=== PATIENT | female | born 1975 | race Caucasian/White ===

== ENCOUNTER → 2020-01-10 | Outpatient (CLI) | payer MEDICARE ==
[2020-01-10 09:58] LABS: HCT 43.4 % (34.0-46.0); HGB 14.1 gm/dL (11.4-16.0); MCH 32.1 pg (25.0-35.0); MCHC 32.5 g/dL (31.0-37.0); MCV 98.9 fL (80.0-100.0); Mean Platelet Volume 7.3; Platelet Count 311 k/uL (150-450); RBC 4.39 m/uL (3.80-5.40); RDW 12.9 % (11.5-15.5); WBC 6.2 k/uL (3.8-10.6)
--- NOTE | 2020-01-10 10:51 | XR ---
EXAMINATION TYPE: XR sacrum coccyx DATE OF EXAM: 01/10/2020 COMPARISON: NONE HISTORY: Pain Three views are submitted. Sacrum is intact. SI joints are symmetric. Coccyx appears to be intact. Visualized pelvic structures intact. Mild hypertrophic changes and arthropathy along the inferior margin of the left SI joint. Sacral foramina are patent. Numerous calcifications in the pelvis noted. Chronic appearing deformity of the symphysis pubis. Facet arthropathy L5-S1 IMPRESSION: 1. No acute fracture. If symptoms persist consider CT scan.
--- NOTE | 2020-01-10 11:06 | XR ---
EXAM TYPE: LUMBAR SPINE X RAY SERIES COMPARISON: NONE HISTORY: Pain TECHNIQUE: 4 views are submitted. FINDINGS: Alignment is anatomic. The pedicles are intact. The transverse processes are intact. There is no s pondylolisthesis. No compression deformities. Hypertrophic change at L3-4 and L4-5 with facet arthro lashell at L4-5 and L5-S1. Mild degenerative disc disease at these levels. Surgical clips in the right upper quadrant. There is a calcification adjacent to the L4-L5 disc space level. IMPRESSION: 1. Mild multilevel degenerative disc disease and facet arthropathy. Correlate with MRI as clinically warranted. 2. Left abdominal calcification could be in the course of the left ureter correlate clinically.
[2020-01-10 15:26] LABS: Chol/HDL Ratio 3.89; LDL Cholesterol,Calculated 128.8 mg/dL (0.0-131.0); VLDL Calculation 27.2 mg/dL (5.00-40.00)
[2020-01-10 15:27] LABS: African American GFR (CKD) 103.2 (60.0-200.0); Albumin 4.1 g/dL (3.80-4.90); Albumin/Globulin Ratio 2.05 (1.60-3.17); Anion Gap 4.1 mmol/L (4.00-12.00); BUN/Creat Ratio 17.5 Ratio (12.00-20.00); Calcium 8.7 mg/dL (8.7-10.3); Carbon Dioxide 23.9 mmol/L (21.6-31.8); Potassium 4.4 mmol/L (3.5-5.5); Total Bilirubin 0.3 mg/dL (0.3-1.2); Total Protein 6.1 g/dL (6.2-8.2)
[2020-01-10 15:34] LABS: T4, Free (Free Thyroxine) 1.1 ng/dL (0.80-1.80)
[2020-01-10 17:02] LABS: Hemoglobin A1C 5.5 % (4.0-6.0)
[2020-01-13 14:44] LABS: APTT 35 Sec(s) (<43); DRVVT 1:1 Mix 40 Sec(s) (<44); Dilute Russell Viper Venom 47 Sec(s) (<44)
== END | disposition home or self-care (01) ==
LOC: LABWHC1 09:27
PROVIDERS: ATTEND Family Medicine
DX: Z00.00 Encounter for general adult medical examination without abnormal findings (principal); I10 Essential (primary) hypertension; B89 Unspecified parasitic disease; M51.36 Other intervertebral disc degeneration, lumbar region
CPT/HCPCS: 36415; 72100; 72220; 80053; 80061; 83036; 84439; 84443; 85027; 85613; 85730; 86038

== ENCOUNTER → 2020-02-26 | Outpatient (CLI) | payer MEDICARE ==
--- NOTE | 2020-02-26 15:08 | CT ---
EXAMINATION TYPE: CT cervical spine wo con DATE OF EXAM: 02/26/2020 COMPARISON: MR cervical spine 07/02/2014 HISTORY: Neck pain, numbness and tingling down arms. History of chiari decompression. CT DLP: 486.8 mGycm Automated exposure control for dose reduction was used. TECHNIQUE: CT scan of the cervical spine is obtained without contrast, axial images are obtained, sagittal and c oronal reformatted images are also reviewed. FINDINGS: There is been interval posterior occipital craniotomy, laminectomies at C1. Reversal the cervical rodney dosis is again noted. Cervical vertebral bodies show preserved height and alignment. There is a spina l curvature. Some loss of disc height present C3-4, C6-7 with spondylosis. No significant foraminal e ncroachment or evident spinal stenosis. Some mild foraminal encroachment present on the right at C3-4 , there is some facet arthropathy change. Cervical spine is visualized in its entirety from C1 throug h upper thoracic levels, without evidence of acute fracture or dislocation. Prevertebral soft tissue appears within normal limits. The C1-C2 articulation is within normal limits on the coronal images. IMPRESSION: Postop changes. Mild degenerative disc disease as described. Additional findings above.
== END | disposition home or self-care (01) ==
LOC: RADCTMAIN 14:22
PROVIDERS: ATTEND Family Medicine
DX: M50.30 Other cervical disc degeneration, unspecified cervical region (principal); M47.812 Spondylosis without myelopathy or radiculopathy, cervical region; Z98.890 Other specified postprocedural states
CPT/HCPCS: 72125

== ENCOUNTER → 2020-03-30 | Outpatient (CLI) | payer MEDICARE ==
[2020-03-30 13:05] VITALS: BP 96/68; PULSE 78; RESP 16; TEMP 98.3
--- NOTE | 2020-03-30 13:35 | P.CONS ---
History of Present Illness - Reason for Consult Consult date: 03/30/20 - Chief Complaint Lower back and right leg pain - History of Present Illness This is a 44-year-old lady with history of lower back pain which started when she was in her 20s as she states however lately it has been getting worse with radiation to the right lower extremity down to the right foot with numbness and tingling in the right leg. The patient also has neck pain with the previous decompression of a Chiari malformation on the cervical spine. She is here today however mostly for her lower back pain due to the intensity of this pain. The patient has been using tramadol and marijuana to help with this pain. This pain gets worse with activities and improves by laying down in bed. She denies any bowel or bladder dysfunction or any weakness in the lower extremities. Review of Systems Constitutional: Denies chills, Denies fever Ears, nose, mouth and throat: Denies headache, Denies sore throat Cardiovascular: Denies chest pain, Denies shortness of breath Respiratory: Denies cough Musculoskeletal: Reports as per HPI Neurological: Reports as per HPI Past Medical History Past Medical History: Neurologic Disorder, Thyroid Disorder Additional Past Medical History / Comment(s): headaches/leaky mitral valve and tacchycardia. CHAIRI MALFORMATION - neurological disorder (diagnosed in 2016). Migraines History of Any Multi-Drug Resistant Organisms: None Reported Past Surgical History: Breast Surgery, Section, Hysterectomy, Orthopedic Surgery Additional Past Surgical History / Comment(s): lt knee. lumpectomy. cyst removal. DECOMPRESSION SURGERY SECONDARY TO CHAIRI MALFORMATION - 2016 Past Psychological History: Depression Smoking Status: Former smoker Past Alcohol Use History: Occasional Past Drug Use History: None Reported, Marijuana Medications and Allergies Home Medications Medication Instructions Recorded Confirmed Type Cyclobenzaprine [Flexeril] 10 mg PO DAILY 06/07/14 03/30/20 History DULoxetine HCL [Cymbalta] 120 mg PO HS 03/30/20 03/30/20 History Levothyroxine Sodium 25 mcg PO DAILY 03/30/20 03/30/20 History Metoprolol Tartrate 25 mg PO DAILY 03/30/20 03/30/20 History traMADol HCL 50 mg PO BID 03/30/20 03/30/20 History traZODone HCL 150 mg PO HS 03/30/20 03/30/20 History Allergies Allergy/AdvReac Type Severity Reaction Status Date / Time Cephalosporins AdvReac Unknown Verified 03/30/20 12:33 topiramate [From Topamax] AdvReac Unknown Verified 03/30/20 12:33 Physical Exam Vitals: Vital Signs Temp Pulse Resp BP Pulse Ox 03/30/20 12:38 98.3 F 78 16 96/68 95 Intake and Output 03/29/20 03/30/20 03/30/20 22:59 06:59 14:59 Other: Weight 94.801 kg - Constitutional General appearance: obese - EENT Eyes: PERRLA - Integumentary Integumentary: no calor, no cellulitis, no cyanotic, no decreased turgor, no flushed, no jaundiced, no normal, no normal turgor, no pale, no rash, no ulcer - Neurologic Neuro exam of the lower extremities showed normal and symmetrical deep tendon reflexes and normal and symmetrical muscle strength. Straight leg raising test negative bilaterally. Positive tenderness around the right sacroiliac joint and on the lumbar paravertebral musculature on the right side Positive Bulmaro's test on the right side No pain with internal and external rotation of the right hip joint. Neurologic: CNII-XII intact Results Comments: An x-ray on the lumbar spine showed mild degenerative changes and facet arthropa thy. There is no MRI available for the lumbar spine. Assessment and Plan Plan: This is a 44-year-old lady with the following diagnoses: Right lumbar radiculopathy Lumbar DDD Right sacroiliitis Cervical spondylosis without myelopathy Status post decompression of the cervical spine for Arnold-Chiari malformation Obesity Occasional marijuana use The patient may benefit from getting lumbar epidural steroid injection under fluoroscopic guidance at the L4 5 level in the right paramedian approach. Her lower back pain continues to be an initial might need to do sacroiliac joint injection on the right side. The procedure was explained to the patient and she was agreeable to it. I thank you for the referral.
== END | disposition home or self-care (01) ==
LOC: PNWHC3 12:27
PROVIDERS: ATTEND Anesthesiology
DX: M51.16 Intervertebral disc disorders with radiculopathy, lumbar region (principal); M46.1 Sacroiliitis, not elsewhere classified; E66.9 Obesity, unspecified; G43.909 Migraine, unspecified, not intractable, without status migrainosus; M47.812 Spondylosis without myelopathy or radiculopathy, cervical region; E07.9 Disorder of thyroid, unspecified; F12.90 Cannabis use, unspecified, uncomplicated; Z88.1 Allergy status to other antibiotic agents; Z88.8 Allergy status to other drugs, medicaments and biological substances; Z79.891 Long term (current) use of opiate analgesic; Z79.899 Other long term (current) drug therapy; Z79.890 Hormone replacement therapy; Z87.891 Personal history of nicotine dependence; Z98.890 Other specified postprocedural states
CPT/HCPCS: 99211

== ENCOUNTER 2020-04-14 12:41 | Day surgery (SDC) | payer MEDICARE ==
[2020-04-10 11:48] VITALS: BMI 36.8
[~2020-04-14 12:41] MED LIST: LACTATED RINGERS 1,000 ML IV SCH
[2020-04-14 13:01] VITALS: RESP 16; TEMP 97.4
[2020-04-14] MEDS ORDERED: LIDOCAINE 1% (10MG/ML) FOR IV START INTRADERMA ONE (13:04)
[2020-04-14] MEDS ORDERED: methylPREDNISolone ACETATE 40 MG/ML 1 ML VIAL ONE (13:23)
[2020-04-14] MEDS ORDERED: fentaNYL (PF) 50 MCG/ML 2 ML AMP ONE (13:23)
[2020-04-14] MEDS ORDERED: MIDAZOLAM 2 MG/2 ML VIAL ONE (13:23)
[2020-04-14] MEDS ORDERED: IOPAMIDOL M200 10 ML VIAL ONE (13:23)
--- NOTE | 2020-04-14 13:34 | P.PCN ---
Date of Procedure: 04/14/20 Procedure(s) Performed: PREOPERATIVE DIAGNOSIS: 1- Lumbar Degenerative Disc Diseases 2-Lumbar radiculopathy POSTOPERATIVE DIAGNOSIS: 1-Lumber Degenerative Disc Diseases 2-Lumbar radiculopathy PROCEDURE 1. Lumbar epidural steroid injection under fluoroscopic guidance at the L4-5 level. (Right paramedian approach) (Fluoroscopy imaging was available in radiology department) 2. Lumbar epidurogram. ANESTHESIA: Local with 1% lidocaine 3 ml and , moderate sedation with intr avenous Versed 2 mg ,and fentanyle 50 Mcg EBL: Minimal PROCEDURE INDICATION: The patient with low back pain and radiculitis symptoms unresponsive to conservative treatment. Fluoroscopy was used to optimize visualization of the needle placement and to maximize safety. PROCEDURE DESCRIPTION / TECHNIQUE: The patient was seen and identified in the preoperative area. Risks, benefits, complications including but not limited to infections ,bleeding ,allergic reaction to the medications ,nerve damage and not complete pain releife , and alternatives were discussed with the patient. The patient agreed to proceed with the procedure and signed the consent. IV was started, and vital signs were stable. Patient was taken to the OR and time out was completed. The patient was placed in the prone position on procedure table and a pillow was placed under the abdomen to reduce lumbar lordosis. The lumbosacral area was prepped and draped in the usual sterile fashion.ere closely monitored during the procedure. Conscious sedation was used during the procedure to decrease patients anxiety. Vital signs was monitered during the entire procedure. Using anterior-posterior fluoroscopy, the L4-5 interlaminar space was identified and the skin over this site was marked and then infiltrated with 1% lidocaine subcutaneously. Subsequently, a 20-gauge Tuohy epidural needle was inserted and advanced toward the epidural space using the ``Loss of resistance technique and guided by AP and lateral fluoroscopy. The correct needle position in the epidural space was verified with the injection of 2 mL of the water soluble contrast dye Isovue 200 contrast and observing an excellent epidurogram with the epidural spread of the dye, after negative aspiration for blood and CSF and in the absence of paresthesias. Again after negative aspiration, a 6 ml mixture containing 80 mg of Depo-medrol , and 2 ml of preservative free Normal Saline, and 2 ml of preservative free lidocaine 1% solution was injected and a washout of epidurogram was seen. Needle was withdrawn intact, skin was cleansed, and bandages were applied. COMPLICATIONS: None DISPOSITION / PLANS: The patient was placed in a supine position and transferred to the recovery area in a stable condition for observation. There was no evidence of lower extremity motor or sensory deficit after the procedure. Patient was discharged from the recovery room after meeting discharge criteria. Home discharge instructions were given to the patient by the staff. The patient was reexamined prior to discharge. The patient will schedule a follow up in the clinic in 2-4 weeks.
[2020-04-14] MEDS ORDERED: IV FLUID CONTINUATION 650 ML IV ONE (13:42)
[2020-04-14 13:57] VITALS: BP 94/67; PULSE 65
--- NOTE | 2020-04-14 14:00 | FL ---
Fluoroscopy HISTORY: Pain 2 seconds fluoroscopy time supplied to the referring clinician. 1 intraoperative C-arm images docume nt the procedure. See dictated report from anesthesia.
== END 2020-04-14 14:20 | disposition home or self-care (01) ==
LOC: ORPAIN 12:41
PROVIDERS: ATTEND Specialist
DX: M51.16 Intervertebral disc disorders with radiculopathy, lumbar region (principal); Z90.710 Acquired absence of both cervix and uterus; Z88.1 Allergy status to other antibiotic agents; Z88.8 Allergy status to other drugs, medicaments and biological substances
CPT/HCPCS: 62323; J2250; J1030; J3010; Q9966

== ENCOUNTER 2020-05-26 08:18 | Day surgery (SDC) | payer MEDICARE ==
[2020-05-25 11:08] VITALS: BMI 38.5
[2020-05-26 08:39] VITALS: RESP 16; TEMP 96.9
[2020-05-26] MEDS ORDERED: SODIUM CHLORIDE 0.9% (PF) 10 ML VIAL ONE (08:45)
[2020-05-26] MEDS ORDERED: IOPAMIDOL M200 10 ML VIAL ONE (08:45)
[2020-05-26] MEDS ORDERED: LIDOCAINE 1% INJ 10MG/ML (20 ML MDV) ONE (08:45)
[2020-05-26] MEDS ORDERED: methylPREDNISolone ACETATE 40 MG/ML 1 ML VIAL ONE (08:45)
--- NOTE | 2020-05-26 08:57 | P.PCN ---
Date of Procedure: 05/26/20 Procedure(s) Performed: PREOPERATIVE DIAGNOSIS: 1- Lumbar Degenerative Disc Diseases 2-Lumbar radiculopathy POSTOPERATIVE DIAGNOSIS: 1-Lumber Degenerative Disc Diseases 2-Lumbar radiculopathy PROCEDURE 1. Lumbar epidural steroid injection under fluoroscopic guidance at the L4-5 level. (Fluoroscopy imaging was available in radiology department) 2. Lumbar epidurogram. ANESTHESIA: Local with 1% lidocaine 3 ml only EBL: Minimal PROCEDURE INDICATION: The patient with low back pain and radiculitis symptoms unresponsive to conservative treatment. Fluoroscopy was used to optimize visualization of the needle placement and to maximize safety. PROCEDURE DESCRIPTION / TECHNIQUE: The patient was seen and identified in the preoperative area. Risks, benefits, complications including but not limited to infections ,bleeding ,allergic reaction to the medications ,nerve damage and not complete pain releife , and alternatives were discussed with the patient. The patient agreed to proceed with the procedure and signed the consent, and vital signs were stable. Patient was taken to the OR and time out was completed. The patient was placed in the prone position on procedure table and a pillow was placed under the abdomen to reduce lumbar lordosis. The lumbosacral area was prepped and draped in the usual sterile fashion.ere closely monitored during the procedure. Vital signs was monitered during the entire procedure. Using anterior-posterior fluoroscopy, the L4-5 interlaminar space was identified and the skin over this site was marked and then infiltrated with 1% lidocaine subcutaneously. Subsequently, a 20-gauge Tuohy epidural needle was inserted and advanced toward the epidural space using the ``Loss of resistance technique and guided by AP and lateral fluoroscopy. The correct needle position in the epidural space was verified with the injection of 2 mL of the water soluble contrast dye Isovue 200 contrast and observing an excellent epidurogram with the epidural spread of the dye, after negative aspiration for blood and CSF and in the absence of paresthesias. Again after negative aspiration, a 6 ml mixture containing 80 mg of Depo-medrol , and 2 ml of preservative free Normal Saline, and 2 ml of preservative free lidocaine 1% solution was injected and a washout of epidurogram was seen. Needle was withdrawn intact, skin was cleansed, and bandages were applied. COMPLICATIONS: None DISPOSITION / PLANS: The patient was placed in a supine position and transferred to the recovery area in a stable condition for observation. There was no evidence of lower extremity motor or sensory deficit after the procedure. Patient was discharged from the recovery room after meeting discharge criteria. Home discharge instructions were given to the patient by the staff. The patient was reexamined prior to discharge. The patient will schedule a follow up in the clinic in 2-4 weeks.
--- NOTE | 2020-05-26 09:11 | FL ---
EXAMINATION TYPE: FL guided pain mgmt statistic DATE OF EXAM: 05/26/2020 HISTORY: Fluoroscopy time 2 seconds of fluoroscopy provided. IMPRESSION: 1. Fluoroscopy time.
[2020-05-26 09:20] VITALS: BP 99/66; PULSE 76
== END 2020-05-26 09:31 | disposition home or self-care (01) ==
LOC: ORPAIN 08:18
PROVIDERS: ATTEND Specialist
DX: M51.16 Intervertebral disc disorders with radiculopathy, lumbar region (principal); Z88.1 Allergy status to other antibiotic agents; Z88.8 Allergy status to other drugs, medicaments and biological substances
CPT/HCPCS: 62323; J1030; J2001; Q9966

== ENCOUNTER → 2020-06-15 | Outpatient (CLI) | payer MEDICARE ==
[2020-06-15 09:17] VITALS: BP 124/89; PULSE 98; RESP 16; TEMP 98.5
--- NOTE | 2020-06-15 09:37 | P.PAINPG ---
Subjective Progress Note Date: 06/15/20 This is a 44-year-old lady with history of lower back pain which started when she was in her 20s as she states however lately it has been getting worse with radiation to the right lower extremity down to the right foot with numbness and tingling in the right leg. The patient also has neck pain with the previous decompression of a Chiari malformation on the cervical spine. We saw her as an inpatient consult where we felt she may benefit from L4-5 ILESI. She has had 2 of that procedure in the last 2 months which gave her 50% pain relief. Here for follow up today. As stated above she notes that her back pain is doing well given the recent epidurals. She does want to discuss neck pain that she's been having for about 5 years. She does have a history of currently malformation with craniotomy in the past. Pain is located in the occipital area with radiation into the shoulders and neck described as dull and aching. Any physical activity makes the pain worse and only taking her Lacassine or Flexeril make the pain better. She does note bilateral hand numbness as well, notes she had an EMG in the past but did not mention carpal tunnel syndrome at all. Occasionally endorses weakness in the arms. In terms of management she's tried multiple medications in the past. He is currently taking Lacassine from her PCP which helps as needed. Try gabapentin but it did not help and give her significant side effects such as mental clouding and weight gain. Has tried NSAIDs and lidocaine patches with no help. Hasn't physical therapy with no help. Has had hoccpital nerve blocks and cervical epidurals at some point in the past with no help. She denies any bowel or bladder dysfunction or any weakness in the lower extremities. Review of Systems Constitutional: Denies chills, Denies fever Ears, nose, mouth and throat: Denies headache, Denies sore throat Cardiovascular: Denies chest pain, Denies shortness of breath Respiratory: Denies cough Musculoskeletal: Reports as per HPI Neurological: Reports as per HPI Past Medical History Past Medical History: Neurologic Disorder, Thyroid Disorder Additional Past Medical History / Comment(s): headaches/leaky mitral valve and tacchycardia. CHAIRI MALFORMATION - neurological disorder (diagnosed in 2016). Migraines History of Any Multi-Drug Resistant Organisms: None Reported Past Surgical History: Breast Surgery, Section, Hysterectomy, Orthopedic Surgery Additional Past Surgical History / Comment(s): lt knee. lumpectomy. cyst removal. DECOMPRESSION SURGERY SECONDARY TO CHAIRI MALFORMATION - 2016 Past Psychological History: Depression Smoking Status: Former smoker Past Alcohol Use History: Occasional Past Drug Use History: None Reported, Marijuana Physical Exam - Constitutional General appearance: obese - EENT Eyes: PERRLA - Integumentary Integumentary: no calor, no cellulitis, no cyanotic, no decreased turgor, no flushed, no jaundiced, no normal, no normal turgor, no pale, no rash, no ulcer - Neurologic Neuro exam of the lower extremities showed normal and symmetrical deep tendon reflexes and normal and symmetrical muscle strength. Cervical Spine: Reversal of normal lordosis. Trigger points present over the right rhomboid area. Range of motion intact bilaterally. Strength intact bilaterally. Reflexes intact bilaterally. Some limited range of motion especially extension to the right side due to pain Neurologic: CNII-XII intact Results Comments: An x-ray on the lumbar spine showed mild degenerative changes and facet arthropathy. CT Cervical Spine 02/2020 Interval posterior occipital craniotomy, laminectomies at C1. Reversal of c ervical lordosis is noted. Some loss of disc height at C3-C4 and C6-C7 spondylosis. No significant foraminal encroachment or spinal stenosis. Some mild foraminal encroachment present on the right at C3-C4, some facet arthropathy changes. Assessment and Plan Plan: This is a 44-year-old lady with the following diagnoses: Right lumbar radiculopathy Lumbar DDD Right sacroiliitis Cervical spondylosis without myelopathy Status post decompression of the cervical spine for Arnold-Chiari malformation Obesity Occasional marijuana use We will schedule this patient for right-sided C2-C3, C3 4 C4, C4-C5 medial branch block with possible continuation RFA patient has good benefit with the medial branch blocks. I encouraged her to establish care with a neurologist in area given her complicated neurologic history. As I encouraged her to seek help from headache specialist is possible that she is having migraine headaches as well as cervical facet mediated pain concurrently. PQRS Measure Charge Sheet PQRS Narrative: Smoking Status Never smoker Pain Intensity [Lower Back] 3 Pain Intensity [Neck] 5 Scale Used Numeric (1 - 10) Hx Alcohol Use (MH) Yes: SOCIAL Home Medications: Ambulatory Orders Cyclobenzaprine [Flexeril] 10 mg PO DAILY 06/07/14 DULoxetine HCL [Cymbalta] 120 mg PO HS 03/30/20 Levothyroxine Sodium 25 mcg PO DAILY 03/30/20 Metoprolol Tartrate 25 mg PO DAILY 03/30/20 traMADol HCL 50 mg PO BID 03/30/20 traZODone HCL 150 mg PO HS 03/30/20 HYDROcodone/APAP 5-325MG [Lacassine 5-325] 5 mg PO Q6HR PRN 04/14/20 Controlled Substance Measures - Controlled Substance Measures Is patient prescribed a controlled substance at discharge?: No
== END | disposition home or self-care (01) ==
LOC: PNWHC3 08:52
PROVIDERS: ATTEND Anesthesiology
DX: M46.1 Sacroiliitis, not elsewhere classified (principal); M47.812 Spondylosis without myelopathy or radiculopathy, cervical region; M51.16 Intervertebral disc disorders with radiculopathy, lumbar region; E66.9 Obesity, unspecified; F12.90 Cannabis use, unspecified, uncomplicated; Z98.890 Other specified postprocedural states; Z79.890 Hormone replacement therapy; Z79.899 Other long term (current) drug therapy; Z79.891 Long term (current) use of opiate analgesic
CPT/HCPCS: 99211

== ENCOUNTER 2020-07-03 12:02 | Day surgery (SDC) | payer MEDICARE ==
[2020-07-01 15:24] VITALS: BMI 38.5
[2020-07-03 12:27] VITALS: TEMP 97
[2020-07-03] MEDS ORDERED: LIDOCAINE 1% (10MG/ML) FOR IV START INTRADERMA ONE (12:28)
[2020-07-03] MEDS ORDERED: DEXAMETHASONE SOD PHOSPHATE 10 MG/ML 1 ML VIAL ONE (12:45)
[2020-07-03] MEDS ORDERED: ROPIVACAINE 5MG/ML 20ML VIAL ONE (12:45)
[2020-07-03] MEDS ORDERED: PROPOFOL 10 MG/ML 20 ML VIAL IV ONE (12:47)
[2020-07-03] MEDS ORDERED: MIDAZOLAM 2 MG/2 ML VIAL ONE (12:47)
[2020-07-03] MEDS ORDERED: fentaNYL (PF) 50 MCG/ML 2 ML AMP ONE (12:47)
--- NOTE | 2020-07-03 13:06 | P.PCN ---
Date of Procedure: 07/03/20 Surgeon: Drea Durbin Pathology: none sent Condition: stable Disposition: PACU Description of Procedure: roger of procedure: Cervical medial branch block for C2 ,C3 ,C4 and block of the third occipital nerve on the right side Surgeon:Drea Durbin MD Anesthesia: IV moderate conscious sedation by the anesthesia Department Diagnosis: Cervical spondylosis without myelopathy , cervicogenic headache Description of procedure: The patient was seen and identified in the preoperative area. Risks, benefits, complications, and alternatives were discussed with the patient, the patient agreed to proceed with the procedure and signed the consent. IV was started. Vital signs remained stable throughout the procedure. Patient was taken to the OR and time out was completed. The patient was placed in the supine position on the procedure table. . The cervical area was prepped with chloraprep and draped in the usual sterile fashion. Critical pause was taken. Vital signs were closely monitored during the procedure. Conscious sedation was used during the procedure to decrease patients anxiety. The lateral view of fluoroscopy was used to identify the C2 , C3 and C4 trapezoid shaped cervical articular pillars and the target points were the center of the articular pillars . I used 22-gauge 3-1/2 inch Quincke spinal needle to go through the skin after localizing it with lidocaine 1% and to contact the bone at the above-mentioned target point then the AP view of fluoroscopy was used to verify needle position at the waist of the C2 and C3 vertebral bodies laterally. For the 3rd occipital nerve the target point was at the center of the C2-C3 joint line bilaterally . after contacting bone at the target points mentioned above I injected 0.5 MLS of a solution made up of 3 ml of preservative-free ropivacaine 0.5% mixed with Dexamethasone 10 mg and half ml of the mixture was injected at each level after negative aspiration for blood and CSF. Napavine were then removed intact. t COMPLICATIONS: No acute complications. COMMENTS: A copy of needle placement was saved to the C-arm at the radiology department DISPOSITION / PLANS: The patient was placed in a supine position and transferred to the recovery area in a stable condition for observation and was discharged from the recovery room after meeting discharge criteria. Home discharge instructions given to the patient by the staff. The patient was reexamined prior to discharge. The patient will be scheduled for a repeat of this injection in 2- 4 weeks.
--- NOTE | 2020-07-03 13:15 | FL ---
EXAMINATION TYPE: FL guided pain mgmt statistic DATE OF EXAM: 07/03/2020 HISTORY: Fluoroscopy time 23 seconds of fluoroscopy provided. IMPRESSION: 1. Fluoroscopy time.
[2020-07-03 13:25] VITALS: BP 147/87; PULSE 77; RESP 17
[2020-07-03] MEDS ORDERED: IV FLUID CONTINUATION 1,000 ML IV ONE (13:37)
== END 2020-07-03 13:40 | disposition home or self-care (01) ==
LOC: ORPAIN 12:02
PROVIDERS: ATTEND Anesthesiology
DX: M47.812 Spondylosis without myelopathy or radiculopathy, cervical region (principal); I10 Essential (primary) hypertension; E07.9 Disorder of thyroid, unspecified; F41.9 Anxiety disorder, unspecified; F32.9 Major depressive disorder, single episode, unspecified; Q07.00 Arnold-Chiari syndrome without spina bifida or hydrocephalus; E66.9 Obesity, unspecified; Z68.38 Body mass index [BMI] 38.0-38.9, adult; Z79.890 Hormone replacement therapy; Z79.891 Long term (current) use of opiate analgesic; Z79.899 Other long term (current) drug therapy; Z88.8 Allergy status to other drugs, medicaments and biological substances; Z88.1 Allergy status to other antibiotic agents; Z98.890 Other specified postprocedural states; Z90.710 Acquired absence of both cervix and uterus
CPT/HCPCS: 64490; 64491; 64492; J2250; J1100; J3010; J2704; J2795

== ENCOUNTER → 2020-08-10 | Outpatient (CLI) | payer MEDICARE ==
[2020-08-10 14:02] VITALS: BP 119/82; PULSE 89; RESP 16; TEMP 98.2
--- NOTE | 2020-08-10 14:12 | P.PN ---
Subjective Progress Note Date: 08/10/20 This is a 44-year-old lady with history of Arnold-Chiari malformation repair. She feels neck pain with radiation to the right hand with numbness and tingling in the medial 2 fingers. The patient had a diagnostic cervical medial branch block which did not improve her pain. The patient is unemployed. She uses marijuana occasionally. She lives by herself. Her daughter helped her out and her daughter is in her 20s. Patient denies new-onset weakness, bowel/bladder incontinence, or any other signs or symptoms of cauda equina syndrome. There are no signs of acute intoxication, and no indications of medication diversion or overuse. In addition to above, 13-point review of systems is also negative for chest pain, shortness of breath, changes in vision, changes in hearing, new onset weakness, abdominal pain, diarrhea, extreme fatigue, malaise, fever, skin changes, homicidal or suicidal ideation, or bowel or bladder incontinence. Vital Signs: Reviewed in EMR Gen: AAOx3, NAD HEENT: PERRLA,hearing grossly normal Pulm: resp unlabored Neck: supple, trachea midline Neuro exam of the upper extremities: Normal muscle strength bilaterally and symmetrically Straight leg raising test: Bulmaro's test: Range of motion of the lumbar spine: Facet loading test: Tenderness in the paravertebral musculature: Positive tenderness in the cervical paravertebral musculature bilaterally Well-healed scar from her previous Arnold-Chiari malformation repair in the o ccipital area. Neuro: CN II-XII grossly intact, Imaging: Reviewed in EMR/chart Assessment: right cervical radiculopathy Arnold-Chiari malformation repair Cervical spondylosis without myelopathy Occasional marijuana use Plan: 1. Explanation: Opioid and psychological risk scores were reviewed. Diagnoses, prognoses, and multiple treatment options including but not limited to physical therapy, interventional therapies, adjuvant medical therapies, narcotic medication therapies, and surgery were discussed with the patient and all questions were answered to the patient's satisfaction. 2. Opioid agreement: Signed with the patient and the patient is warned not to use opioids while driving or before driving and not to combine opioids with benzodiazepines or alcohol. 3. Counseling: The patient was counseled extensively on SMOKING CESSATION, BODY MASS INDEX, EXERCISE. Specifically, the patient was instructed regarding the importance of smoking cessation, obesity, and exercise in the context of both chronic pain and overall health. 4. Procedures: Patient failed to respond to a diagnostic cervical medial branch block. Scheduled for cervical epidural steroid injection under fluoroscopic guidance at the C7-T1 level in the right paramedian approach. The procedure was explained to the patient and her questions were answered. 5. Consultations: None 6. Investigations: None 7. Medications: None 8. Disposition: Proceed with the above-mentioned procedure 9. Maps were reviewed and were appropriate. Objective - Vital Signs Vital signs: Vital Signs Temp 98.2 F 08/10/20 13:56 Pulse 89 08/10/20 13:56 Resp 16 08/10/20 13:56 BP 119/82 08/10/20 13:56 Pulse Ox 99 08/10/20 13:56 Intake & Output 08/09/20 08/10/20 08/10/20 18:59 06:59 18:59 Weight 93.44 kg
== END | disposition home or self-care (01) ==
LOC: PNWHC3 13:42
PROVIDERS: ATTEND Anesthesiology
DX: M47.22 Other spondylosis with radiculopathy, cervical region (principal); Z98.890 Other specified postprocedural states
CPT/HCPCS: 99211

== ENCOUNTER 2020-09-01 08:37 | Day surgery (SDC) | payer MEDICARE, OTHER ==
[2020-08-28 16:06] VITALS: BMI 38.9
[2020-09-01 08:59] VITALS: TEMP 97
[2020-09-01] MEDS ORDERED: LACTATED RINGERS 1,000 ML IV ONE (09:00)
[2020-09-01] MEDS ORDERED: LIDOCAINE 1% (10MG/ML) FOR IV START INTRADERMA ONE (09:00)
[2020-09-01] MEDS ORDERED: DEXAMETHASONE SOD PHOSPHATE 10 MG/ML 1 ML VIAL ONE (09:11)
[2020-09-01] MEDS ORDERED: IOPAMIDOL M200 10 ML VIAL ONE (09:11)
[2020-09-01] MEDS ORDERED: MIDAZOLAM 2 MG/2 ML VIAL ONE (09:11)
[2020-09-01] MEDS ORDERED: fentaNYL (PF) 50 MCG/ML 2 ML AMP ONE (09:11)
--- NOTE | 2020-09-01 09:25 | P.PCN ---
Date of Procedure: 09/01/20 Description of Procedure: Diagnosis: Cervical radiculopathy Cervical degenerative disc disease POSTOPERATIVE DIAGNOSIS: Diagnoses: Cervical radiculopathy Cervical degenerative disc disease PROCEDURE Cervical Epidural steroid injection under fluoroscopic guidance at the C7-T1 interspace using right paramedian approach Cervical epidurogram ANESTHESIA: Local with 1% lidocaine 3 ml and IV sedation with Versed and fentanyl, sedation time 9 min Fluoroscopy was used for the procedure and images were saved in the radiology portion of the chart. EBL: Minimal PROCEDURE INDICATION: The patient presents with cervical radicular symptoms unresponsive to conservative treatment. This is the first cervical epidural steroid injection. PROCEDURE DESCRIPTION / TECHNIQUE: The patient was seen and identified in the preoperative area. Risks, benefits, complications including but not limited to infections ,bleeding ,allergic reaction to the medications ,nerve damage and incomplete pain relief, and alternatives were discussed with the patient. The patient agreed to proceed with the procedure and signed the consent. IV was started, and vital signs were stable. Patient was taken to the OR and time out was completed. The patient was placed in the prone position on procedure table and a pillow was placed under the chest area. The cervical area was prepped and draped in the usual sterile fashion. Conscious sedation was used during the procedure to decrease patients anxiety. Vital signs was monitored during the entire procedure. Using anterior-posterior fluoroscopy, the C7-T1 interlaminar space was identified and the skin over this site was marked and then infiltrated with 1% lidocaine subcutaneously. Subsequently, a 20-gauge Tuohy epidural needle was inserted and advanced toward the epidural space using the loss of resistance technique and guided by AP and 50 oblique fluoroscopy. The correct needle position in the epidural space was verified. After negative aspiration for blood and CSF and in the absence of paresthesias, Isovue 200 2 mL's was injected under live fluoroscopy with good epidural spread. After negative aspiration, a 3 ml mixture containing 10 mg of dexamethasone, 2 mL of preservative free normal saline was injected. Needle was withdrawn intact, skin was cleansed, and bandages were applied. COMPLICATIONS: None DISPOSITION / PLANS: The patient was placed in a supine position and transferred to the recovery area in a stable condition for observation. There was no evidence of lower extremity motor or sensory deficit after the procedure. Patient was discharged from the recovery room after meeting discharge criteria. Home discharge instructions were given to the patient by the staff. The patient will be scheduled a followup in the clinic in 2-4 weeks.
[2020-09-01] MEDS ORDERED: IV FLUID CONTINUATION 700 ML IV ONE (09:30)
[2020-09-01 09:52] VITALS: BP 100/63; PULSE 76; RESP 92
--- NOTE | 2020-09-01 10:08 | FL ---
EXAMINATION TYPE: FL guided pain mgmt statistic DATE OF EXAM: 09/01/2020 HISTORY: Fluoroscopy time 0.16 seconds of fluoroscopy provided. IMPRESSION: 1. Fluoroscopy time.
== END 2020-09-01 10:00 | disposition home or self-care (01) ==
LOC: ORPAIN 08:37
PROVIDERS: ATTEND Anesthesiology
DX: M50.10 Cervical disc disorder with radiculopathy, unspecified cervical region (principal); Z88.1 Allergy status to other antibiotic agents; Z88.8 Allergy status to other drugs, medicaments and biological substances; Z90.710 Acquired absence of both cervix and uterus
CPT/HCPCS: 62321; J2250; J1100; J3010; Q9966

== ENCOUNTER → 2020-09-21 | Outpatient (CLI) | payer MEDICARE, OTHER ==
[2020-09-21 10:25] VITALS: BP 100/72; PULSE 77; RESP 16; TEMP 98.9
--- NOTE | 2020-09-21 10:50 | P.PN ---
Subjective Progress Note Date: 09/21/20 This is a follow visit for this 44 years old female with a chronic history of severe neck pain with radiation to the right upper extremity associated with numbness and tingling sensation, she is diagnosed with cervical radiculopathy and cervical spondylosis with cervical facet arthropathy, she had a cervical epidural steroid injection done that recently she had some benefit from it but she continued to have some neck pain with radiation to the right upper extremity associated with numbness and tingling sensation, he denies any motor or sensory deficit she has a headache also, she's been diagnosed with are not carrying malformation and she has surgical intervention for repair of Arnold Chiari malformation Objective - Vital Signs Vital signs: Vital Signs Temp 98.9 F 09/21/20 10:19 Pulse 77 09/21/20 10:19 Resp 16 09/21/20 10:19 BP 100/72 09/21/20 10:19 Pulse Ox 95 09/21/20 10:19 - Exam Physical Examinations : -Constitutiona : Cooperative , not in acute distress . -HEENT : nech : supple , no Lymphadenopathy , normal thyroid size . : eyes : no ptosis , no icterus, no kusum tophobia . - neurologic : Cranial nerve II to XII intact , no focal neurological deffecit . -psychatric : alert , oriented X 3 , appropriate affect , intact judgment and insight . -Lymphatic : no Lymphadenopathy . - musculoskeltal : Cervical Spine motor stregnth in the deltoid and biceps, normal right side , normal Left side motor stregnth biceps and the wrist extensors normal right side ,normal left side . motor stregnth in the triceps muscle . normal Right side , normal Left side deep tendon reflexes normal at the biceps , normal at Brachioradialis , normal at triceps. cervical facet loading test: Positive Bilaterally Spurling test= positive Right . Neck distraction test= positive Right . Chet sign= positive right. Lumber spine moter stegnth lower extremities ,thigh and legs 5/5 Right side , 5/5 Left side Assessment and Plan Plan: Assessment and plan=1-cervical radiculopathy. 2-cervical spondylosis with cervical facet arthropathy without myelopathy. 3-history of Arnold-Chiari malformation status post surgical repair. Patient could benefit from repeat cervical epidural steroid injection at C7-T1 right paramedian approach. - PQRS measures = - Patient's medications are documented in the chart. -Tobacco use is negative and counseling.Given. -Patient's has not received pneumococcal vaccine. -Advanced care planning discussed, patient not eligible. -Opiate contract not signed. -Pain positive and follow-up visit/procedure is scheduled. -Patient's blood pressure measured [ 100/72] , and documented in the record ,and patient will follow up with the primary care. -Patient's weight was measured and body mass index [ 38.7 ] above the,normal limits and counseling was done. and patient instructed to follow-up with the primary care physician. -Patient was not identified as an unhealthy alcohol user Time with Patient: Less than 30
== END | disposition home or self-care (01) ==
LOC: PNWHC3 09:52
PROVIDERS: ATTEND Specialist
DX: M47.22 Other spondylosis with radiculopathy, cervical region (principal); Z87.898 Personal history of other specified conditions
CPT/HCPCS: 99211

== ENCOUNTER 2020-10-08 07:55 | Day surgery (SDC) | payer MEDICARE, OTHER ==
[2020-10-07 08:49] VITALS: BMI 38.3
[2020-10-08 08:09] VITALS: TEMP 97.5
[2020-10-08] MEDS ORDERED: LIDOCAINE 1% (10MG/ML) FOR IV START INTRADERMA ONE (08:22)
[2020-10-08] MEDS ORDERED: MIDAZOLAM 2 MG/2 ML VIAL ONE (08:56)
[2020-10-08] MEDS ORDERED: fentaNYL (PF) 50 MCG/ML 2 ML AMP ONE (08:56)
[2020-10-08] MEDS ORDERED: IOPAMIDOL M200 10 ML VIAL ONE (08:56)
[2020-10-08] MEDS ORDERED: DEXAMETHASONE SOD PHOSPHATE 10 MG/ML 1 ML VIAL ONE (08:56)
--- NOTE | 2020-10-08 09:07 | P.PCN ---
Date of Procedure: 10/08/20 Procedure(s) Performed: . PROCEDURE 1. Cervical epidural steroid injection under fluoroscopic guidance, C7-T1 (fluoroscopy images available in the radiology department ) 2. Cervical epidurogram. PREOPERATIVE DIAGNOSIS: 1- Cervical Degenerative Disc Diseases 2- Cervical radiculopathy., 3-cervical spondylosis with cervical Facet arthropathy without myelopathy POSTOPERATIVE DIAGNOSIS: : 1- Cervical Degenerative Disc Diseases , 2- Cervical radiculopathy. 3-,cervical spondylosis with cervical Facet arthropathy without myelopathy ANESTHESIA: Local anesthesia with lidocaine 1 % , and moderate sedation, with Versed 2 mg and Fentanyl 50 mcg. EBL 0 PROCEDURE INDICATION: The patient with neck pain and radiculitis unresponsive to conservative treatment consents for procedure. PROCEDURE DESCRIPTION / TECHNIQUE: The patient was seen and identified in the preoperative area. Risks, benefits, complications, including but not limited to infections ,bleeding , allergic reactions to the medications ,and not complete pain releife, and alternatives were discussed with the patient, the patient agreed to proceed with the procedure and signed the consent. Patient was taken to the OR and time out was completed. The patient was placed in the prone position on the procedure table. A pillow was placed under the patients chest to increase the cervical interlaminar space. The cervical area was prepped and draped in the usual sterile fashion. Vital signs were closely monitored during the procedure. Conscious sedation was used during the procedure to decrease patients anxiety. Using anterior-posterior fluoroscopy, the C7-T1 interlaminar space was identified and the skin over this site was marked and then infiltrated with 1% lidocaine subcutaneously. Subsequently, a 20-gauge 3-1/2-inch Tuohy epidural needle was inserted and advanced toward the epidural space by means of the ``hanging-drop technique and guided by AP and lateral fluoroscopy. The correct needle position in the epidural space was verified with the injection of 2 mL of the water soluble contrast dye Isovue-200 and observing an excellent epidurogram with the epidural spread of the dye, after negative aspiration for blood and CSF and in the absence of paresthesias. Again after negative aspiration, mixture containing 20 mg Dexamethasone and 2 ml of preservative- free normal saline injected and a washout of epidurogram was seen. Needle was withdrawn intact, skin was cleansed, and bandages were applied. Complications= none. Disposition= patient was placed in supine position and transferred to the recovery room area in stable condition and there was no evidence of upper or lower extremity motor or sensory deficit after the procedure patient was discharged from recovery room after discharge criteria met and home discharge instructions was given by the staff and patient will follow with the pain clinic in 2-4 weeks
[2020-10-08] MEDS ORDERED: IV FLUID CONTINUATION 1,000 ML IV ONE (09:10)
[2020-10-08 09:13] VITALS: RESP 18
[2020-10-08 09:28] VITALS: BP 114/74; PULSE 68
--- NOTE | 2020-10-09 12:57 | FL ---
Fluoroscopy HISTORY: Pain 4 seconds fluoroscopy time supplied to the referring clinician. 1 intraoperative C-arm images docume nt the procedure. See dictated report from anesthesia.
== END 2020-10-08 09:48 | disposition home or self-care (01) ==
LOC: ORPAIN 07:55
PROVIDERS: ATTEND Specialist
DX: M47.22 Other spondylosis with radiculopathy, cervical region (principal); M50.10 Cervical disc disorder with radiculopathy, unspecified cervical region; Z88.1 Allergy status to other antibiotic agents; Z88.8 Allergy status to other drugs, medicaments and biological substances
CPT/HCPCS: 62321; J2250; J1100; J3010; Q9966

== ENCOUNTER 2020-10-16 21:29 | Emergency (ER) | payer MEDICARE, OTHER ==
[2020-10-16 21:56] VITALS: BP 127/84; PULSE 90; RESP 17; TEMP 99
--- NOTE | 2020-10-16 22:15 | ED ---
Lower Extremity Injury HPI - General Chief Complaint: Extremity Injury, Lower Stated Complaint: L Foot Pain Source: patient, RN notes reviewed Mode of arrival: ambulatory - History of Present Illness Initial Comments: Patient is a 44-year-old female that presents to emergency department with a left foot pain. She notes that she was getting up off her couch when her foot got caught she tripped and then she stumbled and landed back on that foot causing her to here pop and feeling pain. She notes that her foot was asleep when she got up but she believes led to the accident. She states that the pain is getting worse as time goes on. She noted that she can still move her foot with her toes. She denied any decreased range of motion or strength weakness numbness tingling headache chest pain first breath fever fatigue chills constipation nausea vomiting diarrhea - Related Data Home Medications Medication Instructions Recorded Confirmed DULoxetine HCL [Cymbalta] 120 mg PO HS 03/30/20 10/08/20 Levothyroxine Sodium 25 mcg PO DAILY 03/30/20 10/08/20 traMADol HCL 50 mg PO BID PRN 03/30/20 10/08/20 traZODone HCL 150 mg PO HS 03/30/20 10/08/20 HYDROcodone/APAP 5-325MG [[place] 1 tab PO BID PRN 04/14/20 10/08/20 5-325] Cyclobenzaprine [Flexeril] 5 mg PO BID PRN 07/01/20 10/08/20 ARIPiprazole [Abilify] 2 mg PO HS 09/16/20 10/08/20 Propranolol [Inderal] 40 mg PO DAILY 09/16/20 10/08/20 Allergies Allergy/AdvReac Type Severity Reaction Status Date / Time Cephalosporins Allergy Rash/Hives/throat Verified 10/16/20 21:56 swelling topiramate [From Topamax] AdvReac Severe mood swings Verified 10/16/20 21:56 Review of Systems ROS Statement: Those systems with pertinent positive or pertinent negative responses have been documented in the HPI. ROS Other: All systems not noted in ROS Statement are negative. Past Medical History Past Medical History: GERD/Reflux, Neurologic Disorder, Thyroid Disorder Additional Past Medical History / Comment(s): Migraines, leaky mitral valve and tachycardia, CHIARI MALFORMATION. palpitations, ulcer in , hx hiatal hernia, daily headaches, tinnitus timo ears. History of Any Multi-Drug Resistant Organisms: None Reported Past Surgical History: Breast Surgery, Section, Cholecystectomy, Hysterectomy, Orthopedic Surgery Additional Past Surgical History / Comment(s): Left knee arthroscopy, rt breast lumpectomy, DECOMPRESSION SURGERY SECONDARY TO CHIARI MALFORMATION. C/S x 3, vaginal cyst removed, timo eye surgery for glaucoma Past Anesthesia/Blood Transfusion Reactions: Family History of Problems w/ Anesthesia Additional Past Anesthesia/Blood Transfusion Reaction / Comment(s): Mother woke during surgery. Past Psychological History: Anxiety, Depression Smoking Status: Former smoker Past Alcohol Use History: None Reported Past Drug Use History: None Reported - Past Family History Mother Family Medical History: Cancer, Deep Vein Thrombosis (DVT), Pulmonary Embolus Additional Family Medical History / Comment(s): Breast Cancer. General Exam Limitations: no limitations General appearance: alert, in no apparent distress, obese Head exam: Present: atraumatic, normocephalic, normal inspection Eye exam: Present: normal appearance, PERRL, EOMI. Absent: scleral icterus, conjunctival injection, periorbital swelling Neck exam: Present: normal inspection. Absent: tenderness, meningismus, lymphadenopathy Respiratory exam: Present: normal lung sounds bilaterally. Absent: respiratory distress, wheezes, rales, rhonchi, stridor Cardiovascular Exam: Present: regular rate, normal rhythm, normal heart sounds. Absent: systolic murmur, diastolic murmur, rubs, gallop, clicks GI/Abdominal exam: Present: soft, normal bowel sounds. Absent: distended, tenderness, guarding, rebound, rigid Extremities exam: Present: full ROM, tenderness (Over the lateral aspect of the left foot.), normal capillary refill. Absent: normal inspection (Left foot has some ecchymosis on the lateral aspect dorsal side), pedal edema, joint swelling, calf tenderness Neurological exam: Present: alert, oriented X3, CN II-XII intact Psychiatric exam: Present: normal affect, normal mood Skin exam: Present: warm, dry, intact, normal color. Absent: rash Course Vital Signs 10/16/20 21:54 Temperature 99 F Pulse Rate 90 Respiratory 17 Rate Blood Pressure 127/84 O2 Sat by Pulse 97 Oximetry Medical Decision Making - Medical Decision Making 44-year-old female complaining of left foot pain. Left foot and ankle x-ray ordered. Patient declined the need for any pain medication as she took Motrin before coming to the emergency department. Patient declined need for splint as she has not home. Case discussed with Dr. Montalvo, patient can discharge home. - Radiology Data Radiology results: report reviewed, image reviewed Foot x-ray: Soft tissue swelling, no acute fracture dislocation. Left ankle x-ray: No acute fracture dislocation. Disposition Clinical Impression: Left ankle sprain, Contusion of left foot Disposition: HOME SELF-CARE Condition: Stable Instructions (If sedation given, give patient instructions): Ankle Sprain (ED), Foot Contusion (ED) Additional Instructions: Please return to the Emergency Department if symptoms worsen or any other concerns. Follow-up with primary care if symptoms persist. Take [id number] anti-inflammatories for pain management. Rest ice compress elevate, use as tolerated. Is patient prescribed a controlled substance at d/c from ED?: No Referrals: Jr Ochoa MD [Primary Care Provider] - 1-2 days Time of Disposition: 22:38
--- NOTE | 2020-10-16 22:31 | XR ---
EXAMINATION TYPE: XR foot complete LT DATE OF EXAM: 10/16/2020 COMPARISON: NONE HISTORY: Pain TECHNIQUE: 3 views FINDINGS: Metatarsals are intact. I see no fracture nor dislocation. There is soft tissue swelling on the dorsum of the foot. There are no erosions. IMPRESSION: Tissue swelling. No fracture.
--- NOTE | 2020-10-16 22:32 | XR ---
EXAMINATION TYPE: XR ankle complete LT DATE OF EXAM: 10/16/2020 COMPARISON: NONE HISTORY: Pain and swelling TECHNIQUE: 3 views FINDINGS: Ankle mortise is anatomic. I see no fracture nor dislocation. Joint spaces are fairly jf l. IMPRESSION: Negative left ankle exam. No fracture.
== END 2020-10-16 22:50 | disposition home or self-care (01) ==
LOC: EC 21:29
DX: S93.402A Sprain of unspecified ligament of left ankle, initial encounter (principal); S90.32XA Contusion of left foot, initial encounter; F32.9 Major depressive disorder, single episode, unspecified; F41.9 Anxiety disorder, unspecified; K21.9 Gastro-esophageal reflux disease without esophagitis; Z87.891 Personal history of nicotine dependence; W01.0XXA Fall on same level from slipping, tripping and stumbling without subsequent striking against object, initial encounter
CPT/HCPCS: 99284

== ENCOUNTER → 2020-10-21 | Outpatient (CLI) | payer MEDICARE, OTHER ==
--- NOTE | 2020-10-21 11:57 | MM ---
Reason for exam: clinical finding. History: Patient is postmenopausal. Family history of breast cancer in mother at age 45, breast cancer in maternal grandmother, and breast cancer in maternal aunt. Benign excisional biopsy of the right breast, 2004. Physical Findings: Nurse Summary: 2.5cm nodule in the right breast at 10-4 o'clock (nurse cheri). [facility] Diagnostic Mammo w CAD FADIA Bilateral CC and MLO view(s) were taken. The breast tissue is heterogeneously dense. This may lower the sensitivity of mammography. 2.8cm mass upper outer quadrant right breast 7.2cm from nipple. Ultrasound recommended. These results were verbally communicated with the patient and result sheet given to the patient on 10/21/20. ASSESSMENT: Incomplete: need additional imaging evaluation, BI-RAD 0 RECOMMENDATION: Ultrasound of the right breast. Manage patient on a clinical basis.
--- NOTE | 2020-10-21 11:59 | USB ---
Reason for exam: additional evaluation requested from abnormal screening. History: Patient is postmenopausal. Family history of breast cancer in mother at age 45, breast cancer in maternal grandmother, and breast cancer in maternal aunt. Benign excisional biopsy of the right breast, 2004. US Breast Limited RT Right limited breast ultrasound including focal area of concern, retroareolar and axilla demonstrates a 2.4 x 3.4 x 1.5cm irregular, solid, hypoechoic lesion at 10 o'clock for which a biopsy is recommended and a 3.9 x 4.0 x 1.9cm abnormal lymph node at the axilla for which a biopsy is recommended. These results were verbally communicated with the patient and result sheet given to the patient on 10/21/20. ASSESSMENT: Highly suggestive of malignancy, BI-RAD 5 RECOMMENDATION: Ultrasound core biopsy of the right breast. Called Dr. Ochoa's office with mammographic findings and has scheduled an appointment for the patient for 10/29/20 at 7:[address] Wood. Biopsy scheduled for 10/30/20 at 9:30. PRELIMINARY REPORT CALLED AND FAXED TO DR. WOOD ON 10/21/20.
== END | disposition home or self-care (01) ==
LOC: RADMAMWWP 08:10
PROVIDERS: ATTEND Family Medicine
DX: R92.8 Other abnormal and inconclusive findings on diagnostic imaging of breast (principal); Z78.0 Asymptomatic menopausal state; Z80.3 Family history of malignant neoplasm of breast
CPT/HCPCS: 77066

== ENCOUNTER → 2020-10-28 | Outpatient (CLI) | payer MEDICARE, OTHER ==
[2020-10-28 09:59] VITALS: BP 105/75; PULSE 72; RESP 16; TEMP 98
--- NOTE | 2020-10-28 10:21 | P.PN ---
Subjective Progress Note Date: 10/28/20 This is a follow visit for this 44 years old female ,with a chronic history of severe neck pain with radiation to the upper extremity (R>L )associated with numbness and tingling sensation, she is diagnosed with cervical radiculopathy and cervical spondylosis with cervical facet arthropathy, she had a cervical epidural steroid injection x2 , she continued to have severe neck pain with radiation to the right upper extremity associated with numbness and tingling sensation, and she has also severe headache she denies any motor or sensory deficit , she's been diagnosed with arnold Chiari malformation ,and she has surgical intervention for repair of Arnold Chiari malformation, [place] [facility] [place] is scheduled to have a new MRI of the cervical spine and MRI of the brain to be done by november 12 Physical Examinations : -Constitutiona : Cooperative , not in acute distress . -HEENT : nech : supple , no Lymphadenopathy , normal thyroid size . : eyes : no ptosis , no icterus, no photophobia . - neurologic : Cranial nerve II to XII intact , no focal neurological deffecit . -psychatric : alert , oriented X 3 , appropriate affect , intact judgment and insight . -Lymphatic : no Lymphadenopathy . - musculoskeltal : Cervical Spine motor stregnth in the deltoid and biceps, normal right side , normal Left side motor stregnth biceps and the wrist extensors normal right side ,normal left side . motor stregnth in the triceps muscle . normal Right side , normal Left side deep tendon reflexes normal at the biceps , normal at Brachioradialis , normal at triceps. cervical facet loading test: Positive Bilaterally Spurling test= positive Right . Neck distraction test= positive Right . Chet sign= positive right. Lumber spine moter stegnth lower extremities ,thigh and legs 5/5 Right side , 5/5 Left side Assessment and Plan Plan: Assessment and plan=1-cervical radiculopathy. 2-cervical spondylosis with cervical facet arthropathy without myelopathy. 3-history of Arnold-Chiari malformation status post surgical repair. she continue to have severe neck pain and upper extremity numbness after cervical epidural steroid injection at C7-T1 x2 She will follow up in the pain clinic after the MRI of the cervical spine and MRI of the brain - PQRS measures = - Patient's medications are documented in the chart. -Tobacco use is negative and counseling.Given. -Patient's has not received pneumococcal vaccine. -Advanced care planning discussed, patient not eligible. -Opiate contract not signed. -Pain positive and follow-up visit/procedure is scheduled. -Patient's blood pressure measured [ 105/75] , and documented in the record ,and patient will follow up with the primary care. -Patient's weight was measured and body mass index [ 38.7 ] above the,normal limits and counseling was done. and patient instructed to follow-up with the primary care physician. -Patient was not identified as an unhealthy alcohol user Objective - Vital Signs Vital signs: Vital Signs Temp 98.0 F 10/28/20 09:52 Pulse 72 10/28/20 09:52 Resp 16 10/28/20 09:52 BP 105/75 10/28/20 09:52 Pulse Ox 96 10/28/20 09:52
== END ==
LOC: PNWHC3 09:13
PROVIDERS: ATTEND Specialist
DX: M47.22 Other spondylosis with radiculopathy, cervical region (principal); Q07.00 Arnold-Chiari syndrome without spina bifida or hydrocephalus; Z98.890 Other specified postprocedural states
CPT/HCPCS: 99211

== ENCOUNTER → 2020-10-29 | Outpatient (CLI) | payer MEDICARE, OTHER ==
[2020-10-29 07:44] VITALS: BP 111/77; PULSE 65; RESP 16; TEMP 98.3
--- NOTE | 2020-10-29 08:44 | P.GSHP ---
History of Present Illness H&P Date: 10/29/20 Chief Complaint: Mass right breast/radiographic abnormality right breast Vanessa is a 44-year-old white female seen in consultation for Dr. Jr Ochoa regarding a palpable mass in her right breast as well as a radiographic abnormality in the right breast. Patient states that about 2 months ago she noted some fullness in the lateral aspect of her right breast. She had a bilateral mammogram performed on 46. This was felt to be incomplete and an ultrasound of the right breast was recommended. No lesions of concern in the left breast were noted. On ultrasound a 3.4 x 2.4 x 1.5 cm irregular lesion at 10:00 was noted. A 3.9 x 4 cm abnormal lymph node in the axilla was noticed which biopsy was also recommended. The patient's mother underwent a left breast lumpectomy and radiation therapy at the age of 44 for an invasive ductal carcinoma. She did not have any chemo or hormonal therapy. She is doing well at this time. The patient also has two maternal aunts with breast cancer. No one has had genetic testing done. The patient complains of some tenderness in her right breast at the site of the palpable change. She does not complain of any fever or chills. She has not had any trauma or infection in the breast. The patient does state that her nipples become more sensitive on a monthly basis. She has had a partial hysterectomy 2006, this was done for endometriosis. The patient did have an excisional right breast biopsy in 2004 which was benign. Family history: Mother breast: cancer at 44 2 maternal aunts: with breast cancer, one aunt also had leukemia Maternal great-aunt: with breast cancer Maternal grandmother: Uterine and cervical cancer Maternal uncle: Brain cancer at a young age Maternal uncle: Leukemia, as a child Hormonal History: menarche: 12 , breast fed: yes, first child born at 17 periods: Status post hysterectomy at 31 for endometriosis, they did not remove her ovaries control pills: about 6 years hormones: none not using hormones now Surgical History: 1. hysterectomy 2. arthroscopic left knee 3. 3 c-sections 4. cyst vaginal wall 5. iredectomys; for acute angular glaucoma 6. gallbladder 7. 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 right breast biopsy Medical History: 1. Budd-Chiari syndrome/migrians 2. hypothyroid 3. tinnitus 4. Fibromyalgia 5. anxiety/depression ALLERGIES: Cephalosporins/Topamax Social history: Nicotine: stopped in 2008, used to smoke 1/PPD for 12 years alcohol: occasional drugs: Marijuana occasionally for pain/ edible gummies and smokes it as well - Constitutional Constitutional: Reports sweats - EENT Eyes: bilateral as per HPI, bilateral blurred vision, bilateral pain Ears: bilateral: decreased hearing, tinnitus Ears, nose, mouth and throat: Reports headache - Breasts Breasts: bilateral: as per HPI - Cardiovascular Comment: palpations Cardiovascular: Reports shortness of breath - Respiratory Comment: needs a sleep study Respiratory: Denies cough, Denies 7 - Gastrointestinal Gastrointestinal: Reports nausea, Denies abdominal pain, Denies diarrhea, Denies vomiting - Genitourinary (Female) Genitourinary: Denies dysuria, Denies hematuria - Menstruation Menstruation: Reports post hysterectomy - Musculoskeletal Comment: Fibromyalgia - Integumentary Integumentary: Reports pruritus, Denies rash - Neurological Comment: 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 palpitations, ulcer in , hx hiatal hernia, daily headaches, tinnitus timo ears., acute angular glaucoma-corrected with surgery History of Any Multi-Drug Resistant Organisms: None Reported Past Surgical History: Breast Surgery, Section, Cholecystectomy, Hysterectomy, Orthopedic Surgery Additional Past Surgical History / Comment(s): Left knee arthroscopy, rt breast lumpectomy benign, DECOMPRESSION SURGERY SECONDARY TO CHIARI MALFORMATION. C/S x 3, vaginal cyst removed, timo eye surgery for glaucoma Past Anesthesia/Blood Transfusion Reactions: Family History of Problems w/ Anesthesia Additional Past Anesthesia/Blood Transfusion Reaction / Comment(s): Mother woke during surgery. Past Psychological History: Anxiety, Depression Smoking Status: Former smoker Past Alcohol Use History: Occasional Additional Past Alcohol Use History / Comment(s): Quit smoking Mar 2009. smoked for 12 yrs on and off Past Drug Use History: None Reported Additional Drug Use History / Comment(s): Occasional edible Marijuana use for pain. Aware no use 24 hrs prior to procedure. - Past Family History Mother Family Medical History: Cancer, Deep Vein Thrombosis (DVT), Pulmonary Embolus Additional Family Medical History / Comment(s): Breast Cancer left breast intraductal carcinoma in 1998 Medications and Allergies Home Medications Medication Instructions Recorded Confirmed Type DULoxetine HCL [Cymbalta] 120 mg PO HS 03/30/20 10/29/20 History Levothyroxine Sodium 25 mcg PO DAILY 03/30/20 10/29/20 History traMADol HCL 50 mg PO BID PRN 03/30/20 10/29/20 History traZODone HCL 150 mg PO HS 03/30/20 10/29/20 History HYDROcodone/APAP 5-325MG [[place] 1 tab PO BID PRN 04/14/20 10/29/20 History 5-325] Cyclobenzaprine [Flexeril] 5 mg PO BID PRN 07/01/20 10/29/20 History ARIPiprazole [Abilify] 2 mg PO HS 09/16/20 10/29/20 History Propranolol [Inderal] 40 mg PO DAILY 09/16/20 10/29/20 History Allergies Allergy/AdvReac Type Severity Reaction Status Date / Time Cephalosporins Allergy Rash/Hives/throat Verified 10/29/20 07:22 swelling topiramate [From Topamax] AdvReac Severe mood swings Verified 10/29/20 07:22 Surgical - Exam Vital Signs Temp Pulse Resp BP Pulse Ox 98.3 F 65 16 111/77 95 10/29/20 07:32 10/29/20 07:32 10/29/20 07:32 10/29/20 07:32 10/29/20 07:32 BMI 38.4 - General well developed, well nourished - Eyes normal ocular movement - ENT no hearing loss, no congestion - Neck no masses, trachea midline - Respiratory normal expansion, normal respiratory effort, clear to auscultation - Cardiovascular Rhythm: regular Heart Sounds: normal: S1, S2 - Abdomen Abdomen: soft - Integumentary normal turgor - Neurologic no disoriented, no combative - Musculoskeletal normal gait - Psychiatric oriented to time, oriented to person, oriented to place, speech is normal, memory intact breast exam: BRA: 40DDD inspection: bilateral grade 2 ptosis palpation: right breast: Multiple positional exam fibrocystic changes, approximately 4 cm mass at the 10 o'clock position which is mobile Right axilla: Positive enlarge node approximately 3 cm to 4 cm in size Left breast: Multiple positional exam fibrocystic changes, no dominant masses or nodules of concern Left axilla: No adenopathy of concern Results Mammogram and ultrasound reviewed personally with Dr. Lebron Assessment and Plan Assessment: Impression: 1. Mass right breast 2. Abnormal right breast mammogram and ultrasound 3. Family history of breast cancer/mother with breast cancer 44 4. Blood the Chiari syndrome/status post surgery 5. Patient with migraine headaches 6. Fibromyalgia 7. Hypothyroidism 8. Anxiety/depression 9. We have discussed genetic testing Plan: 1. Ultrasound-guided core biopsy of right breast mass and right axillary lymph node 2. Follow-up here following the biopsy 3. patient to have genetic testing Risk and benefits of the procedure discussed with the patient. She understands and wishes to proceed.
== END ==
LOC: WWCWWP 07:19
PROVIDERS: ATTEND Surgery
DX: N63.11 Unspecified lump in the right breast, upper outer quadrant (principal); R92.8 Other abnormal and inconclusive findings on diagnostic imaging of breast; Z80.3 Family history of malignant neoplasm of breast; E03.9 Hypothyroidism, unspecified; F32.9 Major depressive disorder, single episode, unspecified; K21.9 Gastro-esophageal reflux disease without esophagitis; M79.7 Fibromyalgia; Z87.891 Personal history of nicotine dependence

== ENCOUNTER → 2020-10-30 | Day surgery (SDC) | payer MEDICARE, OTHER ==
[2020-10-30 10:14] VITALS: RESP 16
[2020-10-30 11:49] VITALS: BP 108/75; PULSE 64; TEMP 98.7
--- NOTE | 2020-10-30 17:02 | USB ---
EXAMINATION TYPE: US biopsy breast VAD RT, US biopsy breast add'l VAD RT, MG post biopsy diagnostic mammo RT wo CAD DATE OF EXAM: 10/30/2020 CLINICAL HISTORY: 44-year-old female R92.8 Abnormal mammogram. TECHNIQUE: Ultrasound guided core biopsy of 2 sites in the right breast. COMPARISON: 10/21/2020 FINDINGS: The procedure of ultrasound guided core biopsy was explained to the patient. Benefits, alternatives, and risks were discussed. An informed consent was then obtained. The patient was placed in supine positioning for imaging and for the procedure. The overlying skin was prepped and draped in usual sterile fashion. Lidocaine was used as anesthetic into the skin at both sites. Site 1, 10:00 mass: Under ultrasound guidance, additional anesthetic was injected into the subcutaneous tissues and to the biopsy target. A 13-gauge vacuum-assisted mammotome Elite biopsy gun was used to obtain 5 core samples. Following this, a coil clip was left in lesion. Site 1, abnormal axillary node: Under ultrasound guidance, additional lidocaine/epinephrine mixture was injected into the subcutaneous tissues and infiltrated into the cortex of the abnormally enlarged lymph node in order to control hemostasis. A 13-gauge vacuum-assisted mammotome Elite biopsy gun was used to obtain 5 core samples. Following this, a Hydromark clip was left in lesion. The patient tolerated the procedure well without any immediate complication. The patient was kept in the radiology department for short stay after the procedure and then discharged home in stable condition. Postprocedure mammogram shows both clips in appropriate position. IMPRESSION: Successful, uncomplicated ultrasound guided core biopsy of the 10:00 BI-RADS 5 lesion as well as the suspicious right axillary lymph node. Full pathology results to follow. Pathology Results: Malignant A. RIGHT BREAST, 10:00, ULTRASOUND GUIDED CORE BIOPSY: Invasive moderately differentiated ductal carcinoma (Grade 2) with extensive necrosis. See Surgical Pathology Cancer Case Summary. B. RIGHT AXILLA LYMPH NODE, CORE BIOPSY: Invasive moderately differentiated ductal carcinoma focally involving lymphoid tissue consistent with yarelis metastasis. See Surgical Pathology Cancer Case Summary and Comment. Recommendation Surgical consult of the right beast. MTDD
== END ==
LOC: RADUSWWP 09:22
PROVIDERS: ATTEND Surgery
DX: C50.411 Malignant neoplasm of upper-outer quadrant of right female breast (principal); C77.3 Secondary and unspecified malignant neoplasm of axilla and upper limb lymph nodes
CPT/HCPCS: 88305; 88342; 88341; 77065; 76942; 38505; 19083; A4648; J2001; 19084

== ENCOUNTER → 2020-11-06 | Outpatient (CLI) | payer MEDICARE, OTHER ==
[2020-11-06 08:19] VITALS: BP 128/87; PULSE 88; RESP 16; TEMP 98.7
--- NOTE | 2020-11-06 09:07 | P.PN ---
Subjective Progress Note Date: 11/06/20 Principal diagnosis: right breast cancer stage IIB invasive ductal T2 N1 M0 ER positive NM negative HER-2 negative G2 This is a 44-year-old white female seen initially in consultation for Dr. Jr Ochoa and [id number]. She was noted to have a palpable mass in her right breast as well as a radiographic abnormality. Additionally she was noted to have a lesion in her right axilla. [place] [id number]. The lesion in the right breast was consistent with invasive moderately differentiated ductal carcinoma grade 2. The lymph node was also positive for invasive moderately differentiated ductal carcinoma. The patient comes in today for results with her mother and her daughter. The patient has no complaints related to the biopsy. The results of the biopsy were discussed with the patient her daughter and her mother in detail. The stage of the disease was explained him felt to be a IIB. The patient has genetic testing scheduled in the near future. I have called and spoken with Dr. Hernandez from medical oncology and he is going to see the patient this morning regarding neoadjuvant chemotherapy. I discussed with the patient and her family the different treatment options. We have discussed her case will be presented at tumor Board. We have discussed surgical options ranging from lumpectomy via a reduction mammoplasty approach to bilateral mastectomy plus or minus reconstruction. Further recommendation will be made after she completes neoadjuvant treatment. Encounter: 60 minutes CC: Dr. Jr Ochoa Objective - Exam BMI 38.4 - Constitutional General appearance: Present: obese - EENT Eyes: Present: EOMI ENT: Present: hearing grossly normal - Neck Neck: Present: normal ROM - Respiratory Respiratory: bilateral: CTA - Cardiovascular Heart sounds: normal: S1, S2 - Integumentary Integumentary Comment(s): Biopsies right breast and axilla clean and dry, no evidence of infection no evidence of hematoma - Musculoskeletal Musculoskeletal: Present: gait normal - Psychiatric Psychiatric: Present: A&O x's 3, appropriate affect, intact judgment & insight Assessment and Plan Assessment: Impression: 1. Stage IIB right breast carcinoma 2. Positive family history of breast cancer 3. Fibrocystic breast disease 4. Patient tolerated core biopsy without difficulty 5. Budd-Chiari malformation Plan: 1. Genetic testing 2. Appointment with medical oncology 3. Presentation of case at tumor board 4. Surgical resection. Most likely following neoadjuvant chemotherapy 5. We have discussed possible reconstruction/appointment with plastic surgery 6. Follow up here in 2 months if patient is having neoadjuvant chemotherapy I have had a long discussion with the patient her mother and her daughter regarding the stage of her disease as well as treatment options. Further recommendation will be made after she has an appointment with medical oncology and her case is presented at tumor board. I have called Dr. Hernandez and discussed the case with him personally as well. He is going to see her later today.
== END ==
LOC: WWCWWP 07:57
PROVIDERS: ATTEND Surgery
DX: C50.911 Malignant neoplasm of unspecified site of right female breast (principal); I82.0 Budd-Chiari syndrome; N60.19 Diffuse cystic mastopathy of unspecified breast; E66.9 Obesity, unspecified; Z80.3 Family history of malignant neoplasm of breast; Z17.0 Estrogen receptor positive status [ER+]; Z98.890 Other specified postprocedural states; Z68.38 Body mass index [BMI] 38.0-38.9, adult

== ENCOUNTER → 2020-11-07 | Outpatient (CLI) | payer MEDICARE, OTHER ==
--- NOTE | 2020-11-09 12:31 | PE ---
Nuclear medicine PET/CT HISTORY: Right breast carcinoma, initial Patient received 11.4 mCi F-18 FDG intravenously in delayed scanning was performed from the skull bas e to the mid thighs. Localization and attenuation correction CT scan was performed. Correlation to mammogram dated 10/31/2020 There is adenopathy in the right axillary and retrocaval pectoral chest, there is associated hypermet abolic uptake present, SUV 13.4-18. Soft tissue mass in the right breast shows associated clip and th ere is hypermetabolic uptake present with SUV 9.3, possible lateral extension may be due to postproce dural changes SUV 8.2. Along the internal mammary distribution there is a small subcentimeter node cabezas spected, there is associated hypermetabolic uptake, axial image #92, SUV 3. There is no pleural or pe ricardial effusion. No evident lung mass. Calcified left hilar nodes are present. No mediastinal, hil ar adenopathy. In the supraclavicular region on the right, axial image 54 there is a subcentimeter no tita present which also shows some hypermetabolic uptake, SUV 2.9. ABDOMEN: There is no evident liver mass. Patient is post cholecystectomy. No adrenal mass or retroper itoneal adenopathy. No ascites. Some calcification present at the lower pole the left kidney, nonobst ructive calculus at the upper poles of the kidneys. There is a soft tissue nodule beneath the left he midiaphragm which may be due to splenosis, there is a calcification within the spleen, no associated uptake. Question some postop changes to the uterus, left ovary thought to be in place, no uptake Osseous structures show no lytic or blastic lesion, there is no suspicious uptake. There is some musc ular uptake noted which is likely physiologic. IMPRESSION: Abnormal uptake corresponding to patient's right breast carcinoma with retropectoral, rig ht axillary and likely small focus of supraclavicular abnormal uptake, internal mammary uptake consis tent with nonenlarged adenopathy.
== END | disposition home or self-care (01) ==
LOC: RADPETMAIN 10:10
PROVIDERS: ATTEND Internal Medicine Hematology & Oncology
DX: C50.411 Malignant neoplasm of upper-outer quadrant of right female breast (principal)
CPT/HCPCS: 78815; A9552

== ENCOUNTER → 2020-11-10 | Outpatient (CLI) | payer MEDICARE, OTHER ==
--- NOTE | 2020-11-11 08:26 | BMR ---
EXAMINATION TYPE: MR breast BILAT wo/w con DATE OF EXAM: 11/10/2020 COMPARISON: Bilateral breast mammogram October 21, 2020 BI-RADS 0. Diagnostic right breast ultrasound Ap 2020 BI-RADS 5. PET/CT November 07, 2020 HISTORY: Right breast cancer invasive moderately differentiated ductal carcinoma with right axillary involvement on ultrasound-guided biopsy October 30, 2020. TECHNIQUE: A series of fat and water weighted images in the long and short axis views of both breasts are obtained in conjunction with dynamic contrast MRI with subtraction technique. The patient was i njected with 9 mL intravenous Gadavist gadolinium contrast. Three-dimensional and additional postpr ocessing imaging is created on independent workstation and reviewed during official interpretation of this study. FINDINGS: Heterogeneously dense fibroglandular tissue in bilateral breasts is redemonstrated. Coronal STIR sequences show abnormal right axillary adenopathy with level 2 and level 3 and correlati ng with recent PET/CT reference series 301 image 39 corresponding to PET/CT fusion axial image 67. T2 and STIR weighted images show some scattered tiny thin-walled cysts bilaterally with slightly larg er more irregular fluid collection or cyst in the right breast. Delayed dynamic postcontrast sequences show anterior right basilar atelectatic change in the lungs. C orrelating with PET/CT there is abnormal delayed enhancing 1.2 x 0.7 cm internal mammary lymph node i mage 81 series 901 corresponding to PET/CT fusion axial image 92. Dynamic postcontrast images show mi ld background enhancement. Slight Increased enhancement right breast noted. With regards to the left breast and scattered punctate areas of glandular enhancement are identified. No concerning greater than 5 mm areas of enhancement are seen. No abnormal skin thickening. Chest wa ll is intact. With regards to the right breast there is artifact from biopsy clip middle depth above the nipple jose angel ge 53 series 701 just outer aspect of midline near 11:00 position. At this level there is lobulated m ass with microlobulated and irregular margins measuring approximately 3.6 x 3.0 cm image 374 series 8 02 corresponding to PET/CT axial image 94. There is however inferior right anterior lateral component image 338 series 802 measuring roughly 2.0 x 1.5 cm corresponding to PET/CT axial image 101 extendin g to level of nipple giving overall length of neoplasm roughly 5.2 cm. I get measurements of 5.6 cm i n length on computer analysis. Medial right breast shows no suspicious additional enhancing masses. N o abnormal skin thickening is seen. Chest wall is intact. Abnormal right axillary confluent adenopathy with eccentric cortical thickening and an enlarged lymph node axial image 74 series 701 with more confluent lymph nodes extending superiorly and medially bel ow pectoralis minor muscle and extending medially correlates with PET/CT images. Artifact from axilla ry biopsy clip likely present image 77 series 301. No suspicious incidental findings seen. IMPRESSION: Large right breast mass or biopsy-proven neoplasm with extensive right axillary adenopath y and internal mammary adenopathy identified. No MRI evidence for invasive malignancy in the left uzma ast. BI-RADS 6 biopsy-proven cancer right breast. BI-RADS 2 benign findings left breast. Recommendation: Appropriate surgical and oncologic management.
== END | disposition home or self-care (01) ==
LOC: RADMRIMAIN 15:33
PROVIDERS: ATTEND Internal Medicine Hematology & Oncology
DX: C50.411 Malignant neoplasm of upper-outer quadrant of right female breast (principal)
CPT/HCPCS: C8937; C8908; A9585; 77049

== ENCOUNTER → 2020-11-11 | Outpatient (CLI) | payer MEDICARE, OTHER ==
--- NOTE | 2020-11-12 07:19 | ECHOF ---
Referral Reason:Z01.818 pre chemo MEASUREMENTS -------- HEIGHT: 154.9 cm WEIGHT: 92.1 kg BP: RVIDd: 2.6 cm (< 3.3) IVSd: 0.9 cm (0.6 - 1.1) LVIDd: 4.7 cm (3.9 - 5.3) LVPWd: 0.9 cm (0.6 - 1.1) IVSs: 1.6 cm LVIDs: 3.0 cm LVPWs: 1.2 cm LA Diam: 3.6 cm (2.7 - 3.8) LAESV Index (A-L): 14.23 ml/m Ao Diam: 2.7 cm (2.0 - 3.7) AV Cusp: 2.0 cm (1.5 - 2.6) MV EXCURSION: 13.362 mm (> 18.000) MV EF SLOPE: 149 mm/s (70 - 150) EPSS: 0.2 cm MV E Sherif: 1.01 m/s MV DecT: 168 ms MV A Sherif: 0.59 m/s MV E/A Ratio: 1.70 RAP: 5.00 mmHg RVSP: 26.95 mmHg FINDINGS -------- Sinus rhythm. This was a technically good study. The left ventricular size is normal. Left ventricular wall thickness is normal. Overall left vent ricular systolic function is normal with, an EF between 55 - 60 %. The diastolic filling pattern is normal for the age of the patient 9.02. The right ventricle is normal in size. Normal LA size by volume 22+/-6 ml/m2. The right atrial size is normal. Interatrial and interventricular septum intact. The aortic valve is trileaflet, and appears structurally normal. No aortic stenosis or regurgitation. The mitral valve is normal. There is trace to mild mitral regurgitation. The tricuspid valve appears structurally normal. Mild tricuspid regurgitation present. Right vent ricular systolic pressure is normal at < 35 mmHg. Trace/mild (physiologic) pulmonic regurgitation. The aortic root size is normal. Normal inferior vena cava with normal inspiratory collapse consistent with estimated right atrial pre ssure of 5 mmHg. There is no pericardial effusion. CONCLUSIONS -------- 1. Left ventricular wall thickness is normal. 2. Overall left ventricular systolic function is normal with, an EF between 55 - 60 %. 3. Normal LA size by volume 22+/-6 ml/m2. 4. The aortic valve is trileaflet, and appears structurally normal. No aortic stenosis or regurgitati on. 5. There is trace to mild mitral regurgitation. 6. Mild tricuspid regurgitation present. 7. Trace/mild (physiologic) pulmonic regurgitation. 8. There is no pericardial effusion. AUDIO VISUAL SPECIALIST: Amy Pete RDCS
== END | disposition home or self-care (01) ==
LOC: RADECHMAIN 14:50
PROVIDERS: ATTEND Internal Medicine Hematology & Oncology
DX: Z01.818 Encounter for other preprocedural examination (principal); I08.1 Rheumatic disorders of both mitral and tricuspid valves; Z88.1 Allergy status to other antibiotic agents; Z88.8 Allergy status to other drugs, medicaments and biological substances
CPT/HCPCS: 93306

== ENCOUNTER 2020-11-16 22:13 | Emergency (ER) | payer MEDICARE, OTHER ==
[2020-11-16 22:20] VITALS: BP 117/77; PULSE 95; RESP 16; TEMP 98.5
[2020-11-16] MEDS ORDERED: LIDOCAINE 1% INJ 10MG/ML (20 ML MDV) SQ ONE (23:02)
--- NOTE | 2020-11-16 23:19 | ED ---
Wound/Laceration HPI - General Chief Complaint: Wound/Laceration Stated Complaint: Port issues Time Seen by Provider: 11/16/20 22:29 Source: patient Mode of arrival: ambulatory Limitations: no limitations - History of Present Illness Initial Comments: 45 year-old female patient presents the emergency department today for evaluation of open wound to the neck. Patient had a Mediport placed by Dr. Mcintyre around 9:00 this morning. States a couple of hours ago the wound to the neck opened. Denies any drainage or bleeding. Denies significant pain, but states it stings. - Related Data Home Medications Medication Instructions Recorded Confirmed DULoxetine HCL [Cymbalta] 120 mg PO HS 03/30/20 11/16/20 Levothyroxine Sodium 25 mcg PO QAM 03/30/20 11/16/20 traMADol HCL 50 mg PO BID PRN 03/30/20 11/16/20 traZODone HCL 150 mg PO HS 03/30/20 11/16/20 HYDROcodone/APAP 5-325MG [[place] 1 tab PO BID PRN 04/14/20 11/16/20 5-325] Cyclobenzaprine [Flexeril] 5 mg PO BID PRN 07/01/20 11/16/20 ARIPiprazole [Abilify] 2 mg PO HS 09/16/20 11/16/20 Propranolol [Inderal] 40 mg PO BID 09/16/20 11/16/20 Previous Rx's Medication Instructions Recorded Acetaminophen Tab [Tylenol Tab] 1,000 mg PO Q6HR PRN #30 tablet 11/16/20 Amoxic-Pot Clav 875-125Mg 1 tab PO BID 1 Days #14 tab 11/16/20 [Augmentin 875-125] Allergies Allergy/AdvReac Type Severity Reaction Status Date / Time Cephalosporins Allergy Rash/Hives/throat Verified 11/16/20 22:20 swelling topiramate [From Topamax] AdvReac Severe mood swings Verified 11/16/20 22:20 Review of Systems ROS Statement: Those systems with pertinent positive or pertinent negative responses have been documented in the HPI. ROS Other: All systems not noted in ROS Statement are negative. Past Medical History Past Medical History: Cancer, Eye Disorder, GERD/Reflux, Neurologic Disorder, Thyroid Disorder Additional Past Medical History / Comment(s): Migraines; leaky mitral valve and tachycardia; CHIARI MALFORMATION; palpitations; ulcer in ; hx hiatal hernia; daily headaches; tinnitus timo ears; acute angular glaucoma-corrected with surgery; 10/30/20 right breast and axillary lymph node biopsy with invasive ductal carcinoma; History of Any Multi-Drug Resistant Organisms: None Reported Past Surgical History: Breast Surgery, Section, Cholecystectomy, Hysterectomy, Orthopedic Surgery Additional Past Surgical History / Comment(s): left knee arthroscopy; rt breast lumpectomy benign; DECOMPRESSION SURGERY SECONDARY TO CHIARI MALFORMATION; C/S x3; vaginal cyst removed; timo eye surgery for glaucoma; 10/30/20 right breast and axillary lymph node biopsy with invasive ductal carcinoma; Past Anesthesia/Blood Transfusion Reactions: Family History of Problems w/ Anesthesia Additional Past Anesthesia/Blood Transfusion Reaction / Comment(s): Mother woke during surgery. Past Psychological History: Anxiety, Depression Smoking Status: Former smoker Past Alcohol Use History: Occasional Past Drug Use History: Marijuana - Past Family History Mother Family Medical History: Cancer, Deep Vein Thrombosis (DVT), Pulmonary Embolus Additional Family Medical History / Comment(s): Breast Cancer left breast intraductal carcinoma in 1998 General Exam Limitations: no limitations General appearance: alert, in no apparent distress Neck exam: Present: other (3cm dehisched incision to the right anterolateral neck, able to visualize the mediport catheter. No active bleeding. ). Absent: tenderness, meningismus, lymphadenopathy Respiratory exam: Present: normal lung sounds bilaterally. Absent: respiratory distress, wheezes, rales, rhonchi, stridor Cardiovascular Exam: Present: regular rate, normal rhythm, normal heart sounds. Absent: systolic murmur, diastolic murmur, rubs, gallop, clicks Neurological exam: Present: alert Psychiatric exam: Present: normal affect, normal mood Skin exam: Present: warm, dry, intact, normal color. Absent: rash Course Vital Signs 11/16/20 22:15 Temperature 98.5 F Pulse Rate 95 Respiratory 16 Rate Blood Pressure 117/77 O2 Sat by Pulse 96 Oximetry Procedures - Laceration Laceration #1 Consent Obtained: verbal consent Indication: other (Dehisced incision) Size (cm): 3 Description: linear Depth: simple, single layer Anesthetic Used: lidocaine 1% Anesthesia Technique: local infiltration Amount (mls): 2 Pre-repair: irrigated extensively Type of Sutures: nylon Size of Sutures: 5-0 Number of Sutures: 3 Technique: simple, interrupted Patient Tolerated Procedure: well, no complications Medical Decision Making - Medical Decision Making 45 year-old female patient presents to the emergency department today for evaluation of dehisced incision to the right neck. Physical exam showed a 3cm linear wound to right neck with visualization of mediport catheter. Since incision was less than 24 hours old decision was made to close using sutures. Wound was irrigated with sterile water prior to closure. Patient was started on antibiotics for prophylaxis. She will be discharged to follow up with oncologist and Dr. Mcintyre. Return parameters discussed in detail. She verbalizes understanding and agrees with this plan. Case discussed with my attending Dr. Roberts. Disposition Clinical Impression: Dehiscence of incision Disposition: HOME SELF-CARE Condition: Good Instructions (If sedation given, give patient instructions): Wound Dehiscence (ED) Additional Instructions: Stitches should be removed in 5-7 days. Follow-up with Dr. Mcintyre for further evaluation as soon as possible. Return to the emergency department for any new, worsening, or concerning symptoms. Prescriptions: Amoxic-Pot Clav 875-125Mg [Augmentin 875-125] 1 tab PO BID 1 Days #14 tab Is patient prescribed a controlled substance at d/c from ED?: No Referrals: None,Stated [Primary Care Provider] - 1-2 days Time of Disposition: 23:37
[2020-11-16] MEDS ORDERED: AMOXIC-POT CLAV 875MG STARTER PACK 2 TAB BTL PO STA (23:36)
== END 2020-11-16 23:49 | disposition home or self-care (01) ==
LOC: EC 22:13
DX: T81.31XA Disruption of external operation (surgical) wound, not elsewhere classified, initial encounter (principal); F32.9 Major depressive disorder, single episode, unspecified; F12.90 Cannabis use, unspecified, uncomplicated; Z87.891 Personal history of nicotine dependence; Z90.49 Acquired absence of other specified parts of digestive tract; Z90.710 Acquired absence of both cervix and uterus
CPT/HCPCS: 99282; 12002; 96372; J2001

== ENCOUNTER → 2020-11-16 | Day surgery (SDC) | payer MEDICARE, OTHER ==
[2020-11-11 14:42] VITALS: BMI 38.3
[~2020-11-16] MED LIST changes: +ACETAMINOPHEN TAB 500 MG TAB PO PRN; +BUPIVACAIN-EPI 0.25%-1:200,000 30 ML VIAL SQ ONE; +DEXAMETHASONE SOD PHOSPHATE 4 MG/ML 1 ML VIAL IV ONE; +LACTATED RINGERS 1,000 ML IV ONE; -LACTATED RINGERS 1,000 ML IV SCH; +LIDOCAINE 1% (10MG/ML) FOR IV START INTRADERMA PRN; +LIDOCAINE 1% INJ 10MG/ML (20 ML MDV) ONE; +MIDAZOLAM 2 MG/2 ML VIAL ONE; +ONDANSETRON 4 MG/2 ML VIAL IVP ONE; +PHENYLEPHRINE-0.9% NACL SYG 1,000 MCG/10 ML SYRINGE ONE; +Pre Op ABX Message 1 EACH MISC MISCELLANE ONE; +SCOPOLAMINE 1.5MG/72HR PATCH TRANSDERM ONE; +SODIUM CHLORIDE 0.9% 100 ML with CLINDAMYCIN 600 MG IV ONE; +SODIUM CHLORIDE 0.9% 500 ML 500 ML with HEPARIN SODIUM,PORCINE 5,000 UNIT IV ONE; +SUCCINYLCHOLINE CHLORIDE 100 MG/5 ML SYR IV ONE; +fentaNYL (PF) 50 MCG/ML 2 ML AMP ONE
--- NOTE | 2020-11-16 07:50 | P.GSHP ---
History of Present Illness H&P Date: 11/16/20 CHIEF COMPLAINT: Breast cancer HISTORY OF PRESENT ILLNESS: The patient is a 45-year-old female diagnosed with breast cancer. She needs a Mediport placement for chemotherapy. PAST MEDICAL HISTORY: See list PAST SURGICAL HISTORY: See list CURRENT MEDICATIONS: See list. ALLERGIES: See list. SOCIAL HISTORY: No active tobacco or alcohol use. FAMILY HISTORY: Noncontributory. REVIEW OF ORGAN SYSTEMS: CONSTITUTIONAL: No fevers or chills PHYSICAL EXAMINATION: Vital signs: Stable GENERAL: Well developed and in no acute distress. Pleasant. HEENT: No sclera icterus. Extraocular movements grossly intact. Moist buccal mucosa. Head is atraumatic, normocephalic. Hears conversational speech. No nasal drainage. NECK: Supple without lymphadenopathy. No JV distention. CHEST: Non-labored respirations and equal bilateral excursions. CARDIOVASCULAR: Regular rate and rhythm. Palpable 2+ radial pulses. ABDOMEN: Nontender. MUSCULOSKELETAL: No clubbing, cyanosis or edema. NEUROLOGIC: No focal or lateralizing signs. PSYCH: Appropriate affect. Alert and oriented to person, place and time. ASSESSMENT: 1. Breast cancer, right 2. Need for chemotherapeutic access. PLAN: 1. Agree with Port-A-Cath placement. Past Medical History Past Medical History: Cancer, Eye Disorder, GERD/Reflux, Neurologic Disorder, Thyroid Disorder Additional Past Medical History / Comment(s): Migraines; leaky mitral valve and tachycardia; CHIARI MALFORMATION; palpitations; ulcer in ; hx hiatal hernia; daily headaches; tinnitus timo ears; acute angular glaucoma-corrected with surgery; 10/30/20 right breast and axillary lymph node biopsy with invasive ductal carcinoma; History of Any Multi-Drug Resistant Organisms: None Reported Past Surgical History: Breast Surgery, Section, Cholecystectomy, Hysterectomy, Orthopedic Surgery Additional Past Surgical History / Comment(s): left knee arthroscopy; rt breast lumpectomy benign; DECOMPRESSION SURGERY SECONDARY TO CHIARI MALFORMATION; C/S x3; vaginal cyst removed; timo eye surgery for glaucoma; 10/30/20 right breast and axillary lymph node biopsy with invasive ductal carcinoma; Past Anesthesia/Blood Transfusion Reactions: Family History of Problems w/ Anesthesia Additional Past Anesthesia/Blood Transfusion Reaction / Comment(s): Mother woke during surgery. Smoking Status: Former smoker - Past Family History Mother Family Medical History: Cancer, Deep Vein Thrombosis (DVT), Pulmonary Embolus Additional Family Medical History / Comment(s): Breast Cancer left breast intraductal carcinoma in 1998 Medications and Allergies Home Medications Medication Instructions Recorded Confirmed Type DULoxetine HCL [Cymbalta] 120 mg PO HS 03/30/20 11/11/20 History Levothyroxine Sodium 25 mcg PO QAM 03/30/20 11/11/20 History traMADol HCL 50 mg PO BID PRN 03/30/20 11/11/20 History traZODone HCL 150 mg PO HS 03/30/20 11/11/20 History HYDROcodone/APAP 5-325MG [[place] 1 tab PO BID PRN 04/14/20 11/11/20 History 5-325] Cyclobenzaprine [Flexeril] 5 mg PO BID PRN 07/01/20 11/11/20 History ARIPiprazole [Abilify] 2 mg PO HS 09/16/20 11/11/20 History Propranolol [Inderal] 40 mg PO BID 09/16/20 11/11/20 History Multivitamins, Thera [Multivitamin 1 tab PO QAM 11/06/20 11/11/20 History (formulary)] Allergies Allergy/AdvReac Type Severity Reaction Status Date / Time Cephalosporins Allergy Rash/Hives/throat Verified 11/16/20 07:48 swelling topiramate [From Topamax] AdvReac Severe mood swings Verified 11/16/20 07:48
[2020-11-16] MEDS: LACTATED RINGERS 1,000 ML IV SCH ×2 (08:20→09:20)
--- NOTE | 2020-11-16 10:46 | P.PCN ---
Date of Procedure: 11/16/20 Description of Procedure: SURGEON: CHRISTINA MCINTYRE MD ANAESTHESIOLOGIST: None. PREOPERATIVE DIAGNOSES: 1. Breast cancer, right 2. Need for chemotherapeutic access. 3. Morbid obesity due to excess calories, BMI 38.0.3 4. Chiari malformation 5. Migraines 6. Depressive disorder 7. Chronic pain syndrome 8. Hypothyroidism POSTOPERATIVE DIAGNOSES: 1. Breast cancer, right 2. Need for chemotherapeutic access. 3. Morbid obesity due to excess calories, BMI 38.0.3 4. Chiari malformation 5. Migraines 6. Depressive disorder 7. Chronic pain syndrome 8. Hypothyroidism PROCEDURES PERFORMED: 1. Ultrasound guided central venous access of the right internal jugular venous vein. 2. Fluoroscopic guidance for central venous access right internal jugular vein less than 1 seconds. 3. Placement of right internal jugular power port 6 [place] by [employer], Xcela Plus Port ANESTHESIA: IV sedation with local. ESTIMATED BLOOD LOSS: 10 mL. SPECIMENS REMOVED: None. COMPLICATIONS: None. FINDINGS: 1. No thrombus encountered along the right carotid artery or internal jugular vein. 2. Access of the right internal jugular vein under ultrasound guidance. 3. Fluoroscopy of less than 1 seconds. INDICATIONS: The patient is a 45-year-old female recently diagnosed with breast cancer. She presents for chemotherapeutic access. Benefits and risks of surgical intervention were described including bleeding, infection, mechanical problems with his port. Informed consent was obtained. DESCRIPTION OR PROCEDURE: Patient was brought into the operating room, laid in supine position. After adequate IV sedation, the chest and right neck were prepped and draped in a standard sterile fashion including the shoulder with ChloraPrep. Timeout protocol was confirmed with the surgical team regarding the patient's name, procedure to be performed including preoperative medications for which she received IV antibiotics. Bilateral SCDs were placed. An ultrasound was used to capture views of the right internal jugular vein including right carotid artery, which was patent and without thrombus along its course. The right IJ was then localized using anesthetic for the skin. A 16 Bangl[place]hi needle was used to access the IJ. A guidewire was advanced into the IJ with dark nonpulsatile venous blood. Two fingerbreadths distal to the clavicle, on the lateral third, a transverse 1.5 to 2 cm incision was deepened into the skin after localizing the skin. A pocket was created for the port. The port on the back table was flushed with heparinized saline and then attached to the catheter tubing. An adapter was fastened to the actual port site over the tubing. The port easily had fit snug into the pocket. A subcutaneous tunneler was placed along the open end of the tubing and brought out through the separate stab incision. Fluoroscopic guidance confirmed no kinking along the tubing and the port site. Next, the J-wire was exchanged for a catheter sheath for which the tubing was cut to 23 cm and then advanced through the catheter sheath. The Peel-away sheath was then removed and the tubing was secured at the junction of the superior vena cava as well as the right atrium. The tubing was found to be crossed however functional. This was all done under fluoroscopic guidance under 1 seconds. Easy pullback as well as return and aspiration was obtained of the port site. The skin incision was closed using layers using 3-0 Vicryl for the subcu followed by 4-0 Monocryl in a running subcuticular fashion. At the stick site this was also reapproximated using 4-0 Monocryl. The incisions were covered with Optifoam, The skin was cleansed and Exofin liquid glue was applied. Optifoam dressing was placed over the port site. A total of 20 mL of local anesthetic was placed. At the end of the procedure, needle, sponge, and instrument count was verified correct by surgical aide. Heparin lock of 5 mL was placed. The patient was awoken and pain free and taken to the second stage postanesthesia care unit. The patient tolerated the procedure well. Plan - Discharge Summary Discharge Rx Participant: No New Discharge Prescriptions: New Acetaminophen Tab [Tylenol Tab] 1,000 mg PO Q6HR PRN #30 tablet PRN Reason: Pain Continue traZODone HCL 150 mg PO HS traMADol HCL 50 mg PO BID PRN PRN Reason: Pain DULoxetine HCL [Cymbalta] 120 mg PO HS Levothyroxine Sodium 25 mcg PO QAM HYDROcodone/APAP 5-325MG [[place] 5-325] 1 tab PO BID PRN PRN Reason: Pain Cyclobenzaprine [Flexeril] 5 mg PO BID PRN PRN Reason: Pain,MUSCLE SPASM Propranolol [Inderal] 40 mg PO BID ARIPiprazole [Abilify] 2 mg PO HS Discontinued Multivitamins, Thera [Multivitamin (formulary)] 1 tab PO QAM Discharge Medication List DULoxetine HCL [Cymbalta] 120 mg PO HS 03/30/20 [History] Levothyroxine Sodium 25 mcg PO QAM 03/30/20 [History] traMADol HCL 50 mg PO BID PRN 03/30/20 [History] traZODone HCL 150 mg PO HS 03/30/20 [History] HYDROcodone/APAP 5-325MG [[place] 5-325] 1 tab PO BID PRN 04/14/20 [History] Cyclobenzaprine [Flexeril] 5 mg PO BID PRN 07/01/20 [History] ARIPiprazole [Abilify] 2 mg PO HS 09/16/20 [History] Propranolol [Inderal] 40 mg PO BID 09/16/20 [History] Acetaminophen Tab [Tylenol Tab] 1,000 mg PO Q6HR PRN #30 tablet 11/16/20 [Rx] Follow up Appointment(s)/Referral(s): Christina Mcintyre MD [STAFF PHYSICIAN] - As Needed Patient Instructions/Handouts: *Surgery [facility] - Scopalamine Patch Instructions, Implanted Venous Access Port (GEN), How to Care for Your Implanted Venous Access Port (DC) Activity/Diet/Wound Care/Special Instructions: Remove dressing on Monday, November 20. May shower. No bathtub soaks for 2 weeks, November 30 No wide motions of the right arm to prevent dislodge of your port for 2 weeks, November 30 EXPECT BRUISING AND SLEEP WITH 2 TO 3 PILLOWS. BRUISING RESOLVES IN 2 TO 3 WEEKS. Take Tylenol, Aleve or ibuprofen for pain as needed Discharge Disposition: HOME SELF-CARE
[2020-11-16 11:04] VITALS: RESP 16; TEMP 96.8
[2020-11-16 12:06] VITALS: PULSE 77
[2020-11-16 12:34] VITALS: BP 109/77
--- NOTE | 2020-11-16 13:05 | XR ---
EXAMINATION TYPE: XR chest 1V confirm line [facility] DATE OF EXAM: 11/16/2020 CLINICAL HISTORY: port placement. TECHNIQUE: Portable frontal view of the chest. COMPARISON: None FINDINGS: Right internal jugular MediPort with distal tip over the cavoatrial junction. The cardiome diastinal silhouette is within normal limits for size. There is mild right perihilar haziness. There is no focal air space opacity. No pleural effusion. No pneumothorax seen. No acute displaced osseous fracture. IMPRESSION: Right internal jugular MediPort distal tip over the cavoatrial junction. No pneumothorax. Mild right perihilar haziness may represent vascular congestion, edema, or mild hemorrhage.
--- NOTE | 2020-11-16 15:35 | FL ---
EXAMINATION TYPE: FL guided central line placement DATE OF EXAM: 11/16/2020 CLINICAL HISTORY: MediPort placement TECHNIQUE: Fluoroscopy. COMPARISON: None. FINDINGS: Fluoroscopic guidance was provided during procedure by performing physician. A total of 1 seconds of fluoroscopic time was utilized during the procedure and 1 spot images was acquired. There is a right-sided internal jugular MediPort with distal tip over the cavoatrial junction. IMPRESSION: As Above.
== END | disposition home or self-care (01) ==
LOC: OR 06:54
PROVIDERS: ATTEND Surgery Plastic and Reconstructive Surgery
DX: C50.911 Malignant neoplasm of unspecified site of right female breast (principal); E03.9 Hypothyroidism, unspecified; K21.9 Gastro-esophageal reflux disease without esophagitis; F32.9 Major depressive disorder, single episode, unspecified; G89.4 Chronic pain syndrome; E66.01 Morbid (severe) obesity due to excess calories; Z68.38 Body mass index [BMI] 38.0-38.9, adult; Z79.890 Hormone replacement therapy; Z79.899 Other long term (current) drug therapy; Z87.891 Personal history of nicotine dependence; Z88.1 Allergy status to other antibiotic agents; Z88.8 Allergy status to other drugs, medicaments and biological substances
CPT/HCPCS: 77001; 36561; C1788; J2250; J1644; J1100; J2405; J2001; J3010; J1642; J2370; J0330

== ENCOUNTER → 2021-02-01 | Outpatient (CLI) | payer MEDICARE, OTHER ==
--- NOTE | 2021-02-01 18:23 | US ---
EXAMINATION TYPE: US venous doppler duplex LE DATE OF EXAM: 02/01/2021 5:43 PM COMPARISON: CLINICAL HISTORY: M79.662,R22.42,M79.661,R22.41 PAIN AND SWELLING FADIA LIMBS. Chemo patient. Swelling per patient. No redness. SIDE PERFORMED: Bilateral TECHNIQUE: The lower extremity deep venous system is examined utilizing real time linear array sonog angelica with graded compression, doppler sonography and color-flow sonography. VESSELS IMAGED: Common Femoral Vein Deep Femoral Vein Greater Saphenous Vein * Femoral Vein Popliteal Vein Small Saphenous Vein * Proximal Calf Veins (* superficial vessels) Right Leg: Negative for DVT. Rouleaux flow visualized. Left Leg: Negative for DVT. Rouleaux flow visualized. IMPRESSION: No evidence of deep vein thrombosis in both legs.
[2021-02-01 19:30] LABS: ALT 41 U/L (4-34); AST 31 U/L (14-36); African American GFR (CKD) >90 (>60 ml/min/1.73 sqM); Albumin 3.8 g/dL (3.5-5.0); Alkaline Phosphatase 160 U/L (38-126); Anion Gap 11 mmol/L; Blood Urea Nitrogen 16 mg/dL (7-17); Calcium 9.3 mg/dL (8.4-10.2); Carbon Dioxide 25 mmol/L (22-30); Chloride 101 mmol/L (98-107); Glucose 93 mg/dL (74-99); Non-African American GFR(CKD) >90 (>60 ml/min/1.73 sqM); Potassium 3.7 mmol/L (3.5-5.1); Sodium 137 mmol/L (137-145); Total Bilirubin 0.4 mg/dL (0.2-1.3); Total Protein 6.3 g/dL (6.3-8.2)
--- NOTE | 2021-02-01 20:17 | CT ---
EXAMINATION TYPE: CT angio chest DATE OF EXAM: 02/01/2021 COMPARISON: None HISTORY: SOB, hx breast ca CT DLP: 386.8 mGycm Automated exposure control for dose reduction was used. CONTRAST: Performed with IV Contrast, patient injected with 100 mL of Isovue 370. There are 3-D post processed images. There is some mild reticular interstitial infiltrate in the left mid and lower lung field. There is s ome patchy atelectasis in both lower lobes. There is no mediastinal adenopathy. There are some enlarged left bronchial lymph nodes measuring up t o 2 cm with calcification. There is irregular 2 x 1.5 cm nodular subpleural density lateral aspect of the left lower lobe in the superior segment. Thoracic aorta is intact. There is no aneurysm or disse ction. There is no evidence of filling defect in the pulmonary arteries. There are surgical clips at the rig ht breast. Thoracic vertebra have normal alignment. There is no compression fracture. Sternum is intact. The rib s are intact. IMPRESSION: No evidence of pulmonary embolism. Left side pulmonary infiltrates with bronchial adenopathy and calcification that probably relates to old granulomatous disease. Pulmonary infiltrates are increased compared to PET CT scan of 11/07/2020 a nd consistent with acute pneumonia.
== END | disposition home or self-care (01) ==
LOC: RADUSWWP 16:41
PROVIDERS: ATTEND Internal Medicine Hematology & Oncology
DX: M79.89 Other specified soft tissue disorders (principal); R91.8 Other nonspecific abnormal finding of lung field
CPT/HCPCS: 80053; 82607; 93970; 71275; Q9967; 36415

== ENCOUNTER 2021-02-08 10:47 | Inpatient (IN) | payer MEDICARE, OTHER ==
[2021-02-08] MEDS ORDERED: SODIUM CHLORIDE 0.9% 500 ML 500 ML IV STA (11:48)
[2021-02-08 12:11] LABS: Anisocytosis Slight; Basophils # (A) 0.1 k/uL (0-0.2); Basophils % (A) 1 %; Eosinophils # (A) 0.1 k/uL (0-0.7); Eosinophils % (A) 1 %; HCT 30.2 % (34.0-46.0); HGB 9.8 gm/dL (11.4-16.0); Hypochromasia Slight; Lymphocytes # (A) 0.7 k/uL (1.0-4.8); Lymphocytes % (A) 7 %; MCH 31.8 pg (25.0-35.0); MCHC 32.6 g/dL (31.0-37.0); MCV 97.6 fL (80.0-100.0); Macrocytosis Slight; Mean Platelet Volume 7.5; Monocytes # (A) 0.5 k/uL (0-1.0); Monocytes % (A) 6 %; Neutrophils # (A) 7.9 k/uL (1.3-7.7); Neutrophils % (A) 84 %; Platelet Count 653 k/uL (150-450); Poikilocytosis Slight; RBC 3.09 m/uL (3.80-5.40); RDW 16.5 % (11.5-15.5); WBC 9.4 k/uL (3.8-10.6)
[2021-02-08 12:21] LABS: ALT 29 U/L (4-34); AST 32 U/L (14-36); African American GFR (CKD) >90 (>60 ml/min/1.73 sqM); Albumin 3.7 g/dL (3.5-5.0); Alkaline Phosphatase 122 U/L (38-126); Anion Gap 10 mmol/L; Blood Urea Nitrogen 16 mg/dL (7-17); Carbon Dioxide 26 mmol/L (22-30); Chloride 102 mmol/L (98-107); Glucose 112 mg/dL (74-99); Non-African American GFR(CKD) >90 (>60 ml/min/1.73 sqM); Potassium 3.9 mmol/L (3.5-5.1); Sodium 138 mmol/L (137-145); Total Bilirubin 0.2 mg/dL (0.2-1.3); Total Protein 6.1 g/dL (6.3-8.2)
--- NOTE | 2021-02-08 12:44 | ED ---
SOB HPI - General Chief Complaint: Shortness of Breath Stated Complaint: SOB/Pneumonia Time Seen by Provider: 02/08/21 11:20 Source: patient, RN notes reviewed Mode of arrival: wheelchair Limitations: no limitations - History of Present Illness Initial Comments: This a 45-year-old female presents emergency Department with chief complaint of shortness of breath. Patient states she's been sick for approximately 10 days was placed on antibiotics 7 days ago she states that she's had no improvement. Patient follow-up with Swathi with oncology today who sent her over for admission. Patient had to miss her last chemotherapy. Patient is currently being treated for breast cancer. Patient's been having fevers. That has improved some. He is to have productive cough. - Related Data Home Medications Medication Instructions Recorded Confirmed DULoxetine HCL [Cymbalta] 120 mg PO HS 03/30/20 02/08/21 Levothyroxine Sodium 25 mcg PO DAILY 03/30/20 02/08/21 traMADol HCL 50 mg PO BID PRN 03/30/20 02/08/21 traZODone HCL 150 mg PO HS 03/30/20 02/08/21 Cyclobenzaprine [Flexeril] 5 mg PO HS PRN 07/01/20 02/08/21 ARIPiprazole [Abilify] 2 mg PO HS 09/16/20 02/08/21 Propranolol [Inderal] 40 mg PO BID 09/16/20 02/08/21 Butalb/APAP/Caff 50-325-40Mg 1 tab PO Q6H PRN 02/08/21 02/08/21 [Fioricet 50-325-40] Dexamethasone [Decadron] 4 - 8 mg PO DIRECTED 02/08/21 02/08/21 HYDROcodone/APAP 7.5-325MG [Ava 1 tab PO Q12H PRN 02/08/21 02/08/21 7.5-325] Govind's Solution 5 ml PO QID 02/08/21 02/08/21 LORazepam [Ativan] 0.5 mg PO TID PRN 02/08/21 02/08/21 Levofloxacin [Levaquin] 750 mg PO DAILY 02/08/21 02/08/21 Lidocaine-Prilocaine Cream [Emla 1 applic TOPICAL DIRECTED PRN 02/08/2101/15 Cream 2.5%/2.5%] Omeprazole 40 mg PO DAILY 02/08/21 02/08/21 Ondansetron Odt [Zofran Odt] 4 mg PO Q6H PRN 02/08/21 02/08/21 Sennosides/Docusate Sodium [Senna 1 cap PO HS PRN 02/08/21 02/08/21 Plus 8.6-50 mg Softgel] cycloSPORINE [Restasis] 1 drop BOTH EYES BID 02/08/21 02/08/21 Allergies Allergy/AdvReac Type Severity Reaction Status Date / Time Cephalosporins Allergy Rash/Hives/throat Verified 02/08/21 11:53 swelling topiramate [From Topamax] AdvReac Severe mood swings Verified 02/08/21 11:53 Review of Systems ROS Statement: Those systems with pertinent positive or pertinent negative responses have been documented in the HPI. ROS Other: All systems not noted in ROS Statement are negative. Past Medical History Past Medical History: Cancer, Eye Disorder, GERD/Reflux, Neurologic Disorder, Thyroid Disorder Additional Past Medical History / Comment(s): Migraines; leaky mitral valve and tachycardia; CHIARI MALFORMATION; palpitations; ulcer in ; hx hiatal hernia; daily headaches; tinnitus timo ears; acute angular glaucoma-corrected with surgery; 10/30/20 right breast and axillary lymph node biopsy with invasive ductal carcinoma; History of Any Multi-Drug Resistant Organisms: None Reported Past Surgical History: Breast Surgery, Section, Cholecystectomy, Hysterectomy, Orthopedic Surgery Additional Past Surgical History / Comment(s): left knee arthroscopy; rt breast lumpectomy benign; DECOMPRESSION SURGERY SECONDARY TO CHIARI MALFORMATION; C/S x3; vaginal cyst removed; timo eye surgery for glaucoma; 10/30/20 right breast and axillary lymph node biopsy with invasive ductal carcinoma; Past Anesthesia/Blood Transfusion Reactions: Family History of Problems w/ Anesthesia Additional Past Anesthesia/Blood Transfusion Reaction / Comment(s): Mother woke during surgery. Past Psychological History: Anxiety, Depression Smoking Status: Former smoker Past Alcohol Use History: Occasional Past Drug Use History: Marijuana - Past Family History Mother Family Medical History: Cancer, Deep Vein Thrombosis (DVT), Pulmonary Embolus Additional Family Medical History / Comment(s): Breast Cancer left breast intraductal carcinoma in 1998 General Exam Limitations: no limitations General appearance: alert, in no apparent distress Head exam: Present: atraumatic, normocephalic, normal inspection ENT exam: Present: normal exam, mucous membranes moist Neck exam: Present: normal inspection. Absent: tenderness, meningismus, lymphadenopathy Respiratory exam: Present: rhonchi. Absent: normal lung sounds bilaterally, respiratory distress, wheezes, rales, stridor Cardiovascular Exam: Present: normal rhythm, tachycardia, normal heart sounds. Absent: systolic murmur, diastolic murmur, rubs, gallop, clicks GI/Abdominal exam: Present: soft, normal bowel sounds. Absent: distended, tenderness, guarding, rebound, rigid Course Vital Signs 02/08/21 10:58 Temperature 98.1 F Pulse Rate 105 H Respiratory 18 Rate Blood Pressure 103/72 O2 Sat by Pulse 96 Oximetry Medical Decision Making - Medical Decision Making Patient had recent CT which showed evidence of pneumonia x-ray shows continuation of pneumonia. Patient's had minimal improvement. Patient be admitted for pulmonary evaluation, IV antibiotics. - Lab Data Result diagrams: 02/08/21 11:52 02/08/21 11:52 Lab Results 02/08/21 02/08/21 02/08/21 Range/Units 11:52 11:52 11:52 WBC 9.4 (3.8-10.6) k/uL RBC 3.09 L (3.80-5.40) m/uL Hgb 9.8 L (11.4-16.0) gm/dL Hct 30.2 L (34.0-46.0) % MCV 97.6 (80.0-100.0) fL MCH 31.8 (25.0-35.0) pg MCHC 32.6 (31.0-37.0) g/dL RDW 16.5 H (11.5-15.5) % Plt Count 653 H (150-450) k/uL MPV 7.5 Neutrophils % 84 % Lymphocytes % 7 % Monocytes % 6 % Eosinophils % 1 % Basophils % 1 % Neutrophils # 7.9 H (1.3-7.7) k/uL Lymphocytes # 0.7 L (1.0-4.8) k/uL Monocytes # 0.5 (0-1.0) k/uL Eosinophils # 0.1 (0-0.7) k/uL Basophils # 0.1 (0-0.2) k/uL Hypochromasia Slight Poikilocytosis Slight Anisocytosis Slight Macrocytosis Slight Sodium 138 (137-145) mmol/L Potassium 3.9 (3.5-5.1) mmol/L Chloride 102 (98-107) mmol/L Carbon Dioxide 26 (22-30) mmol/L Anion Gap 10 mmol/L BUN 16 (7-17) mg/dL Creatinine 0.65 (0.52-1.04) mg/dL Est GFR (CKD-EPI)AfAm >90 (>60 ml/min/1.73 sqM) Est GFR (CKD-EPI)NonAf >90 (>60 ml/min/1.73 sqM) Glucose 112 H (74-99) mg/dL Plasma Lactic Acid Gm 1.3 (0.7-2.0) mmol/L Calcium 10.0 (8.4-10.2) mg/dL Total Bilirubin 0.2 (0.2-1.3) mg/dL AST 32 (14-36) U/L ALT 29 (4-34) U/L Alkaline Phosphatase 122 (38-126) U/L Total Protein 6.1 L (6.3-8.2) g/dL Albumin 3.7 (3.5-5.0) g/dL Disposition Clinical Impression: Pneumonia, Failure of outpatient treatment, Breast cancer, right Disposition: ADMITTED IP TO THIS [facility] Condition: Fair Referrals: Marielle Oconnell MD [Primary Care Provider] - 1-2 days
[2021-02-08] MEDS ORDERED: PNEUMONIA PROTOCOL UTILIZED 1 EACH MISC PO PRN (12:45)
[2021-02-08] MEDS ORDERED: AZITHROMYCIN 500 MG in SODIUM CHLORIDE 0.9% 250 ML IVPB STA (12:45)
--- NOTE | 2021-02-08 12:51 | XR ---
EXAMINATION TYPE: XR chest 2V DATE OF EXAM: 02/08/2021 COMPARISON: NONE HISTORY: Chest pain TECHNIQUE: Frontal and lateral views of the chest are obtained. FINDINGS: Left perihilar infiltrate noted. The remainder of the lungs are clear. Central venous line in place. No evidence for pneumothorax. No pleural effusion. The cardiac silhouette size is within normal limits. The osseous structures are grossly intact. IMPRESSION: 1. Left perihilar infiltrate noted.
[2021-02-08] MEDS ORDERED: PIPERACILLIN-TAZOBACTAM 3.375 GM in SODIUM CHLORIDE 0.9% 100 ML IVPB STA (12:59)
--- NOTE | 2021-02-08 15:18 | P.CNPUL ---
History of Present Illness Consult date: 02/08/21 Reason for consult: dyspnea, pneumonia History of present illness: 45-year-old female patient coming in with increased shortness of breath. She's been sick for more than 10 days and she was put on antibiotics on outpatient basis without any much improvement and for that reason she was sent over to the hospital. The patient is known to have underlying breast cancer. She is morbidly obese. She has a history of CAD a malformation, migraines, depression, chronic pain and hypothyroidism. The patient is coming in with a white cell count of 9.4. Electrolytes are all within normal limits. COVID-19 testing onset but occasions have been negative and this was done on 02/03/2021 02/08/2021. Computed tomography scan of the chest done in the emergency on 02/01/2021 showed no evidence of any pulmonary embolism. There was a left- sided pulmonary infiltrate and some lymphadenopathy within the left hilum and peribronchial area and the area is showing some enlarged lymph nodes as large as 2 cm in size and the lymph nodes are calcified. There was another 2 x 1.5 cm nodular density in the subpleural area and the lateral aspect of the left lower lobe and the superior segment. The left-sided pulmonary infiltrate and the bronchial lymphadenopathy and calcification is probably related to an old granulomatous disease. Nevertheless, it was thought that the pulmonary infiltration and gotten worse since the PET scan of October 2020 and there was a concern for underlying superinfection. Her current pulse ox 97% on room air. She is covered with a combination of antibiotics including Zithromax and Zosyn. The patient is afebrile.. The patient was seen by oncology [employer] and she was given Levaquin 750 mg one week and she completed the antibiotics today. She did not see any improvement. She has started the systemic chemotherapy. She skipped the last dose of systemic chemo based on an ongoing respiratory difficulties. Review of Systems Eyes: denies as per HPI, denies blurred vision, denies bulging eye, denies decreased vision, denies diplopia, denies discharge, denies dry eye, denies irritation, denies itching, denies pain, denies photophobia, denies loss of peripheral vision, denies loss of vision, denies tunnel vision/blind spots Ears, nose, mouth and throat: Reports as per HPI Breasts: absent: as per HPI, change in shape, gynecomastia, masses, nipple discharge, pain, skin changes, swelling Cardiovascular: Reports decreased exercise tolerance, Reports dyspnea on exertion Respiratory: Reports cough, Reports dyspnea Gastrointestinal: Reports as per HPI Genitourinary: Reports as per HPI Menstruation: Reports as per HPI Musculoskeletal: Reports as per HPI Musculoskeletal: absent: ankle pain, ankle stiffness, ankle swelling, as per HPI, elbow pain, elbow stiffness, elbow swelling, foot pain, foot stiffness, foot swelling, hand pain, hand stiffness, hand swelling, hip pain, hip stiffness, hip swelling, knee pain, knee stiffness, knee swelling, shoulder p ain, shoulder stiffness, shoulder swelling, wrist pain, wrist stiffness, wrist swelling Integumentary: Reports as per HPI Neurological: Reports as per HPI Psychiatric: Reports as per HPI Endocrine: Reports as per HPI Hematologic/Lymphatic: Reports as per HPI Allergic/Immunologic: Reports as per HPI Past Medical History Past Medical History: Cancer, Eye Disorder, GERD/Reflux, Neurologic Disorder, Thyroid Disorder Additional Past Medical History / Comment(s): Migraines; leaky mitral valve and tachycardia; CHIARI MALFORMATION; palpitations; ulcer in ; hx hiatal hernia; daily headaches; tinnitus timo ears; acute angular glaucoma-corrected with surgery; 10/30/20 right breast and axillary lymph node biopsy with invasive ductal carcinoma; History of Any Multi-Drug Resistant Organisms: None Reported Past Surgical History: Breast Surgery, Section, Cholecystectomy, Hysterectomy, Orthopedic Surgery Additional Past Surgical History / Comment(s): left knee arthroscopy; rt breast lumpectomy benign; DECOMPRESSION SURGERY SECONDARY TO CHIARI MALFORMATION; C/S x3; vaginal cyst removed; timo eye surgery for glaucoma; 10/30/20 right breast and axillary lymph node biopsy with invasive ductal carcinoma; Past Anesthesia/Blood Transfusion Reactions: Family History of Problems w/ Anesthesia Additional Past Anesthesia/Blood Transfusion Reaction / Comment(s): Mother woke during surgery. Past Psychological History: Anxiety, Depression Smoking Status: Former smoker Past Alcohol Use History: Occasional Past Drug Use History: Marijuana - Past Family History Mother Family Medical History: Cancer, Deep Vein Thrombosis (DVT), Pulmonary Embolus Additional Family Medical History / Comment(s): Breast Cancer left breast intraductal carcinoma in 1998 Medications and Allergies Home Medications Medication Instructions Recorded Confirmed Type DULoxetine HCL [Cymbalta] 120 mg PO HS 03/30/20 02/08/21 History Levothyroxine Sodium 25 mcg PO DAILY 03/30/20 02/08/21 History traMADol HCL 50 mg PO BID PRN 03/30/20 02/08/21 History traZODone HCL 150 mg PO HS 03/30/20 02/08/21 History Cyclobenzaprine [Flexeril] 5 mg PO HS PRN 07/01/20 02/08/21 History ARIPiprazole [Abilify] 2 mg PO HS 09/16/20 02/08/21 History Propranolol [Inderal] 40 mg PO BID 09/16/20 02/08/21 History Butalb/APAP/Caff 50-325-40Mg 1 tab PO Q6H PRN 02/08/21 02/08/21 History [Fioricet 50-325-40] Dexamethasone [Decadron] 4 - 8 mg PO DIRECTED 02/08/21 02/08/21 History HYDROcodone/APAP 7.5-325MG [Winslow 1 tab PO Q12H PRN 02/08/21 02/08/21 History 7.5-325] Govind's Solution 5 ml PO QID 02/08/21 02/08/21 History LORazepam [Ativan] 0.5 mg PO TID PRN 02/08/21 02/08/21 History Levofloxacin [Levaquin] 750 mg PO DAILY 02/08/21 02/08/21 History Lidocaine-Prilocaine Cream [Emla 1 applic TOPICAL DIRECTED PRN 02/08/21 02/08/21 History Cream 2.5%/2.5%] Omeprazole 40 mg PO DAILY 02/08/21 02/08/21 History Ondansetron Odt [Zofran Odt] 4 mg PO Q6H PRN 02/08/21 02/08/21 History Sennosides/Docusate Sodium [Senna 1 cap PO HS PRN 02/08/21 02/08/21 History Plus 8.6-50 mg Softgel] cycloSPORINE [Restasis] 1 drop BOTH EYES BID 02/08/21 02/08/21 History Allergies Allergy/AdvReac Type Severity Reaction Status Date / Time Cephalosporins Allergy Rash/Hives/throat Verified 02/08/21 11:53 swelling topiramate [From Topamax] AdvReac Severe mood swings Verified 02/08/21 11:53 Physical Exam Vitals: Vital Signs Temp Pulse Resp BP Pulse Ox 02/08/21 13:05 93 18 98/76 97 02/08/21 10:58 98.1 F 105 H 18 103/72 96 Intake and Output 02/08/21 02/08/21 02/08/21 06:59 14:59 22:59 Other: Weight 90.265 kg Results - Laboratory Findings CBC and BMP: 02/08/21 11:52 02/08/21 11:52 Abnormal lab findings: Abnormal Labs 02/08/21 02/08/21 11:52 11:52 RBC 3.09 L Hgb 9.8 L Hct 30.2 L RDW 16.5 H Plt Count 653 H Neutrophils # 7.9 H Lymphocytes # 0.7 L Glucose 112 H Total Protein 6.1 L - Diagnostic Findings Chest x-ray: image reviewed CT scan - chest: image reviewed Assessment and Plan Plan: 1 questionable left perihilar pulmonary infiltrate. Note that the patient had a CAT scan of the chest done on 02/01/2021 and a left hilar area showed some enlarged peribronchial lymph nodes that were calcified and this was a represen tation of an alkaline with this infection. There was some very poor infiltration in addition. In addition to that, there is not another lesion in the lateral aspect of the left lower lobe and the superior segment and this looks quite concerning for malignancy versus pneumonia. On today's chest x-ray, the same abnormality is are seen. The remainder of the lungs are clear. She is afebrile. Pulse ox 97% on room air oxygen. She is hemodynamically stable on no pressors. White cell count is at 9.4. 2 breast cancer, right, post lumpectomy and lymph node dissection, currently on systemic chemotherapy. Followed up by oncology on outpatient basis 3. Morbid obesity due to excess calories, BMI 38.0.3 4. Chiari malformation, post decompression surgery 5. Migraines 6. Depressive disorder 7. Chronic pain syndrome 8. Hypothyroidism 9 chronic anemia, with interval drop in hemoglobin down to 9.8, possibly secondary to systemic chemotherapy 10 history of migraines 11 history of hiatal hernia 12 history of acute angle closure glaucoma 13 chronic anxiety/depression Plan Agree on the current antibiotic coverage Check pro calcitonin level Follow-up chest x-ray Follow-up the left lung pulmonary infiltrate, not absolutely convinced that this is a true infection. The patient lungs are essentially clear Left hilar and peribronchial lymph nodes are calcified and attributed to a previous problem with infection of the lung Oncology regarding breast cancer management
[2021-02-08] MEDS ORDERED: PIPERACILLIN-TAZOBACTAM 3.375 GM in SODIUM CHLORIDE 0.9% 100 ML IVPB SCH (18:00)
[2021-02-08] MEDS ORDERED: SENNOSIDES-DOCUSATE SODIUM 1 EACH TAB PO PRN (19:19)
[2021-02-08] MEDS ORDERED: ONDANSETRON ODT 4 MG TAB PO PRN (19:19)
[2021-02-08] MEDS ORDERED: LORazepam 0.5 MG TAB PO PRN (19:19)
[2021-02-08] MEDS: DULoxetine HCL 60 MG CAPSULE.DR PO SCH (21:56)
[2021-02-08] MEDS: CYCLOBENZAPRINE 5 MG TAB PO PRN (21:56)
[2021-02-08] MEDS ORDERED: NON FORMULARY DRUG (Kool's Solution 5 ML) PO SCH (22:00)
[2021-02-08] MEDS: HYDROcodone/APAP 7.5-325MG 1 EACH TAB PO PRN (22:01)
[2021-02-08] MEDS: ARIPiprazole 2 MG TAB PO SCH (22:58)
[2021-02-09] MEDS: PIPERACILLIN-TAZOBACTAM 3.375 GM in SODIUM CHLORIDE 0.9% 100 ML IVPB SCH ×3 (01:04→18:31)
[2021-02-09] MEDS: PROPRANOLOL 40 MG TAB PO SCH ×3 (02:40→20:33)
[2021-02-09] MEDS: MAG HYDROX/AL HYDROX/SIMETH 30 ML, LIDOCAINE VISCOUS 30 ML, diphenhydrAMINE ELIXIR 75 M... PO SCH ×20 (02:40→20:34)
[2021-02-09] MEDS: LEVOTHYROXINE 25 MCG TAB PO SCH (05:38)
[2021-02-09] MEDS: PANTOPRAZOLE 40 MG TABLET PO SCH (06:41)
[2021-02-09] MEDS: AZITHROMYCIN 500 MG in SODIUM CHLORIDE 0.9% 250 ML IVPB SCH (09:46)
[2021-02-09] MEDS: HYDROcodone/APAP 7.5-325MG 1 EACH TAB PO PRN ×2 (09:55→22:11)
--- NOTE | 2021-02-09 09:57 | XR ---
EXAMINATION TYPE: XR chest 2V DATE OF EXAM: 02/09/2021 COMPARISON: 02/08/2021 TECHNIQUE: PA and lateral views submitted. HISTORY: Cough possible pneumonia FINDINGS: Patchy infiltrate left upper lobe and perihilar region. No pleural effusion or interstitial edema. He art size normal. Mediport catheter seen. IMPRESSION: 1. Left perihilar infiltrate stable.
--- NOTE | 2021-02-09 10:18 | P.PN ---
Subjective Progress Note Date: 02/09/21 45-year-old female patient coming in with increased shortness of breath. She's been sick for more than 10 days and she was put on antibiotics on outpatient basis without any much improvement and for that reason she was sent over to the hospital. The patient is known to have underlying breast cancer. She is morbidly obese. She has a history of CAD a malformation, migraines, depression, chronic pain and hypothyroidism. The patient is coming in with a white cell count of 9.4. Electrolytes are all within normal limits. COVID-19 testing onset but occasions have been negative and this was done on 02/03/2021 02/08/2021. Computed tomography scan of the chest done in the emergency on 02/01/2021 showed no evidence of any pulmonary embolism. There was a left- sided pulmonary infiltrate and some lymphadenopathy within the left hilum and peribronchial area and the area is showing some enlarged lymph nodes as large as 2 cm in size and the lymph nodes are calcified. There was another 2 x 1.5 cm nodular density in the subpleural area and the lateral aspect of the left lower lobe and the superior segment. The left-sided pulmonary infiltrate and the bronchial lymphadenopathy and calcification is probably related to an old granulomatous disease. Nevertheless, it was thought that the pulmonary infiltration and gotten worse since the PET scan of October 2020 and there was a concern for underlying superinfection. Her current pulse ox 97% on room air. She is covered with a combination of antibiotics including Zithromax and Zosyn. The patient is afebrile.. The patient was seen by oncology [employer] and she was given Levaquin 750 mg one week and she completed the antibiotics today. She did not see any improvement. She has started the systemic chemotherapy. She skipped the last dose of systemic chemo based on an ongoing respiratory difficulties. 02/09/2021, the patient's breathing is essentially untreated same as yesterday. She is afebrile. She is hemodynamically stable pulse oxing 97% on room air oxygen. 4 calcitonin level was at 0.12. Remains on broad-spectrum antibiotics with a combination of Zosyn and Zithromax. No other significant issues otherwise for now. Repeat chest x-ray was done today and repeat chest x-ray showed ongoing left perihilar infiltration and calcification of the left perihilar lymph nodes. No significant sputum production. No pleurisy. Objective - Vital Signs Vital signs: Vital Signs Temp 98.0 F 02/09/21 09:44 Pulse 94 02/09/21 09:44 Resp 16 02/09/21 09:44 BP 106/63 02/09/21 09:44 Pulse Ox 97 02/09/21 09:44 Intake & Output 02/08/21 02/09/21 02/09/21 18:59 06:59 18:59 Intake Total 950 Balance 950 Weight 90.265 kg 90.265 kg Intake: Intake, IV Titration 950 Amount Azithromycin 500 mg In 250 Sodium Chloride 0.9% 250 ml @ 250 mls/hr IVPB DAILY YOB[facility] Rx#:[id number] Piperacillin-Tazobactam 3 100 .375 gm In Sodium Chloride 0.9% 100 ml @ 200 mls/hr IVPB ONCE STA Rx#:[id number] Piperacillin-Tazobactam 3 100 .375 gm In Sodium Chloride 0.9% 100 ml @ 25 mls/hr IVPB Q8H YOBANI Rx#: [id number] Sodium Chloride 0.9% 500 500 ml 500 ml @ 999 mls/hr IV .Q31M STA Rx#:[id number] Other: Voiding Method Toilet # Voids 2 - Exam The patient appeared well nourished and normally developed. Vital signs as documented. Head exam is unremarkable. No scleral icterus or corneal arcus noted. Neck is without jugular venous distension, thyromegaly, or carotid bruits. Carotid upstrokes are brisk bilaterally. Lungs are clear to auscultation and percussion. Cardiac exam reveals the PMI to be normally sized and situated. Rhythm is regular. First and second heart sounds normal. No murmurs, rubs or gallops. Abdominal exam reveals normal bowel sounds, no masses, no organomegaly and no aortic enlargement. Extremities are nonedematous and both femoral and pedal pulses are normal.Examination of the skin revealed no evidence of significant rashes, suspicious appearing nevi or other concerning lesions.Neurologically, the patient is awake and alert and the patient does not have any focal neurological deficit. Cranial nerves are essentially intact. - Labs CBC & Chem 7: 02/08/21 11:52 02/08/21 11:52 Labs: Abnormal Lab Results - Last 24 Hours (Table) 02/08/21 02/08/21 02/08/21 Range/Units 11:52 11:52 11:52 RBC 3.09 L (3.80-5.40) m/uL Hgb 9.8 L (11.4-16.0) gm/dL Hct 30.2 L (34.0-46.0) % RDW 16.5 H (11.5-15.5) % Plt Count 653 H (150-450) k/uL Neutrophils # 7.9 H (1.3-7.7) k/uL Lymphocytes # 0.7 L (1.0-4.8) k/uL Glucose 112 H (74-99) mg/dL Total Protein 6.1 L (6.3-8.2) g/dL Procalcitonin 0.12 H (0.02-0.09) ng/mL Assessment and Plan Plan: 1 questionable left perihilar pulmonary infiltrate. Note that the patient had a CAT scan of the chest done on 02/01/2021 and a left hilar area showed some enlarged peribronchial lymph nodes that were calcified and this was a representation of an alkaline with this infection. There was some very poor infiltration in addition. In addition to that, there is not another lesion in the lateral aspect of the left lower lobe and the superior segment and this looks quite concerning for malignancy versus pneumonia. On today's chest x-ray, the same abnormality is are seen. The remainder of the lungs are clear. She is afebrile. Pulse ox 97% on room air oxygen. She is hemodynamically stable on no pressors. White cell count is at 9.4. The pro calcitonin level LEVEL IS AT 0.12. FOLLOW-UP CHEST X-RAY REMAINS UNCHANGED. 2 breast cancer, right, post lumpectomy and lymph node dissection, currently on systemic chemotherapy. Followed up by oncology on outpatient basis 3. Morbid obesity due to excess calories, BMI 38.0.3 4. Chiari malformation, post decompression surgery 5. Migraines 6. Depressive disorder 7. Chronic pain syndrome 8. Hypothyroidism 9 chronic anemia, with interval drop in hemoglobin down to 9.8, possibly secondary to systemic chemotherapy 10 history of migraines 11 history of hiatal hernia 12 history of acute angle closure glaucoma 13 chronic anxiety/depression Plan Agree on the current antibiotic coverage although I'm not absolutely sure this patient has a pneumonia. Pro calcitonin level is at 0.12. Follow-up chest x-ray was reviewed Follow-up the left lung pulmonary infiltrate, not absolutely convinced that this is a true infection. The patient lungs are essentially clear Left hilar and peribronchial lymph nodes are calcified and attributed to a previous granulomatous infection of the lung Oncology regarding breast cancer management
[2021-02-09] MEDS: guaiFENesin 600 MG TABLET.ER PO SCH ×2 (11:34→20:33)
--- NOTE | 2021-02-09 11:40 | P.HPIM ---
History of Present Illness H&P Date: 02/09/21 Chief Complaint: DERECK HISTORY OF PRESENT ILLNESS This is a 45-year-old male patient of Dr. Oconnell newly established in the office in December. Patient has past medical history of malignant neoplasm of the right breast, hypothyroidism, generalized anxiety disorder, migraine headache, recurrent depression, chronic reflux esophagitis, Chiari malformation, spondylosis of the lumbar spine. Patient follows with Dr. Bowden and Swathi Randolph [employer] regarding breast cancer treatment. Patient states that chemotherapy, Taxol, was on hold last week due to pneumonia. Patient has been on Levaquin and completed a seven-day course. She returned to the office for recheck with oncology and she continued to have cough with shortness of breath and heavy chest. No fever or chills. No rashes, no sore throat, no diarrhea. Patient was advised to come in the hospital for further evaluation. Patient was found to be afebrile, heart rate 105 initially, repeat in the 80s and 90s. Blood pressure 103/72, pulse ox 96% on room air. WBC 9.4, hemoglobin 9.8, platelet count 653. Electrolytes and renal functions are normal. Blood sugar 112. Liver function tests are normal. Calcium 10. Total protein 6.1. Pro-calcitonin 0.12. Coronavirus PCR not detected. Chest x-ray reveals left perihilar infiltrate. Repeat chest x-ray 02/09 and unchanged. CTA of the chest performed on 02/01 revealed no evidence of pulmonary embolism. 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 Pulmonary infiltrates are increased compared to PET scan of 11/04 and consistent with acute pneumonia. Patient has been admitted to the cardiac stepdown unit/[facility] floor overflow, consult with pulmonary medicine appreciated. REVIEW OF SYSTEMS Constitutional: No fever, no chills, no night sweats. No weight change. No weakness, fatigue or lethargy. No daytime sleepiness. EENT: No headache. No blurred vision or double vision, no loss of vision. No loss of Hearing, no ringing in the ears, no dizziness. No nasal drainage or congestion. No epistaxis. No sore throat. Lungs: Reports shortness of breath, reports cough, no sputum production. No wheezing. Cardiovascular: Reports heavy chest discomfort, no lower extremity edema. No palpitations. No paroxysmal nocturnal dyspnea. No orthopnea. No lightheadedness or dizziness. No syncopal episodes. Abdominal: No abdominal pain. No nausea, vomiting. No diarrhea. No constipation. No bloody or tarry stools.. No loss of appetite. Genitourinary: No dysuria, increased frequency, urgency. No urinary retention. Musculoskeletal: No myalgias. No muscle weakness, no gait dysfunction, no frequent falls. No back pain. No neck pain. Integumentary: No wounds, no lesions. No rash or pruritus. No unusual bruising. No change in hair or nails. Neurologic: No aphasia. No facial droop. No change in mentation. No head injury. No headache. No paralysis. No paresthesia. Psychiatric: No depression. No anxiety. No mood swings. Endocrine: No abnormal blood sugars. No weight change. MEDICAL HISTORY Breast cancer right, invasive ductal carcinoma Hypothyroidism Chiari malformation Spondylosis of the lumbar spine Gastroesophageal reflux disease and esophagitis Generalized anxiety disorder Recurrent depression Migraine headache Acute angle glaucoma SURGICAL HISTORY Right breast and axillary lymph node biopsy Surgery for Chiari malformation Right breast lumpectomy, benign Bilateral eye surgery for glaucoma Left knee arthroplasty 3 Vaginal cyst removal Hysterectomy Cholecystectomy SOCIAL HISTORY Patient was a smoker of a half a pack per day and quit in 2008. No alcohol use. Patient uses marijuana gummies. FAMILY HISTORY Father is alive at age 69 with history of coronary artery disease status post t hree-vessel CABG at the age of 67, history of hypertension. Mother is alive at age 67 with history of diabetes, 4 vessel CABG at the age of 62. Patient has 1 brother alive at age 41 with history of hypertension and prediabetes. Patient has 2 sons with no major medical problems. Patient has one daughter with no major medical problems. PHYSICAL EXAMINATION Gen: This is a 45-year-old obese female. She is resting in bed appears to be comfortable and in no acute distress. HEENT: Head is atraumatic, normocephalic. Pupils equal, round. Sclerae is anicteric. Scalp alopecia. NECK: Supple. No JVD. No lymphadenopathy. No thyromegaly. LUNGS: Slightly diminished, no wheezes. No intercostal retractions. HEART: Regular rate and rhythm. No murmur. Mediport to the right upper anterior chest wall. ABDOMEN: Soft. Bowel sounds are present. No masses. No tenderness. EXTREMITIES: No pedal edema. No calf tenderness. NEUROLOGICAL: Patient is awake, alert and oriented x3. Cranial nerves 2 through 12 are grossly intact. ASSESSMENT AND PLAN 1. Possible left-sided pneumonia. Consult with pulmonary medicine appreciated. per Dr. Hodge, previous CAT scan has lesions concerning for malignancy versus pneumonia. Continue antibiotics the form of azithromycin and Zosyn, Mucinex 600 mg every 12 hours. 2. Right-sided breast cancer under the care of Dr. Bowden. Consult with oncology. Chemotherapy is currently on hold due to lung infection. 3. Anemia secondary to chemotherapy. 4 Hypothyroidism. Continue levothyroxine 25 g daily. 5 Gastroesophageal reflux disease. Continue Protonix 40 mg daily oral. 6 Generalized anxiety disorder and recurrent depression. Continue Abilify 2 mg at bedtime, Cymbalta 120 mg at bedtime, Ativan 0.5 mg 3 times daily as needed, trazodone 150 mg at bedtime. 7 History of migraine headaches. Continue Inderal 40 mg twice daily. 8 Chiari malformation, stable. 9. Spondylosis of the lumbar spine, stable. 10. Acute angle glaucoma, stable. 11. DVT prophylaxis. Heparin subcu Patient will be admitted to the hospital for a minimum of 2 night stay. DISCHARGE PLAN Home. Impression and plan of care have been directed as dictated by the signing physician. Mariana Jameson nurse practitioner acting as scribe for signing physician. Past Medical History Past Medical History: Cancer, Eye Disorder, GERD/Reflux, Neurologic Disorder, Thyroid Disorder Additional Past Medical History / Comment(s): Migraines; leaky mitral valve and tachycardia; CHIARI MALFORMATION; palpitations; ulcer in ; hx hiatal h ernia; daily headaches; tinnitus timo ears; acute angular glaucoma-corrected with surgery; 10/30/20 right breast and axillary lymph node biopsy with invasive ductal carcinoma; History of Any Multi-Drug Resistant Organisms: None Reported Past Surgical History: Breast Surgery, Section, Cholecystectomy, Hysterectomy, Orthopedic Surgery Additional Past Surgical History / Comment(s): left knee arthroscopy; rt breast lumpectomy benign; DECOMPRESSION SURGERY SECONDARY TO CHIARI MALFORMATION; C/S x3; vaginal cyst removed; timo eye surgery for glaucoma; 10/30/20 right breast and axillary lymph node biopsy with invasive ductal carcinoma; Past Anesthesia/Blood Transfusion Reactions: Family History of Problems w/ Anesthesia Additional Past Anesthesia/Blood Transfusion Reaction / Comment(s): Mother woke during surgery. Smoking Status: Former smoker - Past Family History Mother Family Medical History: Cancer, Deep Vein Thrombosis (DVT), Pulmonary Embolus Additional Family Medical History / Comment(s): Breast Cancer left breast intraductal carcinoma in 1998 Medications and Allergies Home Medications Medication Instructions Recorded Confirmed Type DULoxetine HCL [Cymbalta] 120 mg PO HS 03/30/20 02/08/21 History Levothyroxine Sodium 25 mcg PO DAILY 03/30/20 02/08/21 History traMADol HCL 50 mg PO BID PRN 03/30/20 02/08/21 History traZODone HCL 150 mg PO HS 03/30/20 02/08/21 History Cyclobenzaprine [Flexeril] 5 mg PO HS PRN 07/01/20 02/08/21 History ARIPiprazole [Abilify] 2 mg PO HS 09/16/20 02/08/21 History Propranolol [Inderal] 40 mg PO BID 09/16/20 02/08/21 History Butalb/APAP/Caff 50-325-40Mg 1 tab PO Q6H PRN 02/08/21 02/08/21 History [Fioricet 50-325-40] Dexamethasone [Decadron] 4 - 8 mg PO DIRECTED 02/08/21 02/08/21 History HYDROcodone/APAP 7.5-325MG [[place] 1 tab PO Q12H PRN 02/08/21 02/08/21 History 7.5-325] Govind's Solution 5 ml PO QID 02/08/21 02/08/21 History LORazepam [Ativan] 0.5 mg PO TID PRN 02/08/21 02/08/21 History Levofloxacin [Levaquin] 750 mg PO DAILY 02/08/21 02/08/21 History Lidocaine-Prilocaine Cream [Emla 1 applic TOPICAL DIRECTED PRN 02/08/21 02/08/21 History Cream 2.5%/2.5%] Omeprazole 40 mg PO DAILY 02/08/21 02/08/21 History Ondansetron Odt [Zofran Odt] 4 mg PO Q6H PRN 02/08/21 02/08/21 History Sennosides/Docusate Sodium [Senna 1 cap PO HS PRN 02/08/21 02/08/21 History Plus 8.6-50 mg Softgel] cycloSPORINE [Restasis] 1 drop BOTH EYES BID 02/08/21 02/08/21 History Allergies Allergy/AdvReac Type Severity Reaction Status Date / Time Cephalosporins Allergy Rash/Hives/throat Verified 02/08/21 11:53 swelling topiramate [From Topamax] AdvReac Severe mood swings Verified 02/08/21 11:53 Physical Exam Vitals: Vital Signs Temp Pulse Pulse Resp BP BP Pulse Ox 02/09/21 06:47 77 18 02/09/21 06:46 98.2 F 77 18 90/53 95 02/09/21 05:32 97.9 F 79 16 96/68 96 02/09/21 05:28 18 02/08/21 22:05 86 18 86/64 96 02/08/21 14:30 97.6 F 87 18 110/77 95 02/08/21 13:30 86 18 106/77 96 02/08/21 13:05 93 18 98/76 97 02/08/21 12:30 83 18 112/76 95 02/08/21 10:58 98.1 F 105 H 18 103/72 96 Intake and Output 02/08/21 02/09/21 02/09/21 22:59 06:59 14:59 Intake Total 950 Balance 950 Intake: Intake, IV Titration 950 Amount Azithromycin 500 mg In 250 Sodium Chloride 0.9% 250 ml @ 250 mls/hr IVPB DAILY [facility] Rx#:[id number] Piperacillin-Tazobactam 3 100 .375 gm In Sodium Chloride 0.9% 100 ml @ 200 mls/hr IVPB ONCE [facility] Rx#:[id number] Piperacillin-Tazobactam 3 100 .375 gm In Sodium Chloride 0.9% 100 ml @ 25 mls/hr IVPB Q8H [facility] Rx#: [id number] Sodium Chloride 0.9% 500 500 ml 500 ml @ 999 mls/hr IV .Q31M [facility] Rx#:[id number] Other: Voiding Method Toilet # Voids 2 Weight 90.265 kg Results CBC & Chem 7: 02/08/21 11:52 02/08/21 11:52 Labs: Abnormal Lab Results - Last 24 Hours (Table) 02/08/21 02/08/21 02/08/21 Range/Units 11:52 11:52 11:52 RBC 3.09 L (3.80-5.40) m/uL Hgb 9.8 L (11.4-16.0) gm/dL Hct 30.2 L (34.0-46.0) % RDW 16.5 H (11.5-15.5) % Plt Count 653 H (150-450) k/uL Neutrophils # 7.9 H (1.3-7.7) k/uL Lymphocytes # 0.7 L (1.0-4.8) k/uL Glucose 112 H (74-99) mg/dL Total Protein 6.1 L (6.3-8.2) g/dL Procalcitonin 0.12 H (0.02-0.09) ng/mL
--- NOTE | 2021-02-09 13:40 | P.CONS ---
History of Present Illness - Reason for Consult Consult date: 02/09/21 breast cancer Requesting physician: Juan Butterfield - Chief Complaint persistent cough, SOB - History of Present Illness Mrs. Eddy is a very pleasant 45-year-old female patient of Dr. Hernandez who had a palpable upper outer quadrant of the right breast noted in May 2020. Diagnostic mammogram 10/21/20 revealed a suspicious 2.8 cm mass, 7.2 cm from the nipple, ultrasound confirmed a lesion plus right axillary lymphadenopathy. Ultrasound guided biopsy of both mass and lymph node revealed grade 2 invasive ductal carcinoma ER/DC 10%/0%, HER-2/brina 1+ (negative). Patient had been using estrogen-based control pills 4 years, history of total abdominal hysterectomy and unilateral salpingo-oophorectomy. Patient has strong maternal history of breast cancer. Patient has Arnold-Chiari disease and follows with a Neurologist and [place]. She started neoadjuvant Adriamycin/Cytoxan dose dense protocol 11/25/20 which she completed. She was due for cycle 2 of dose dense Taxol was due 02/03 but, treatment was held due to patient presenting with shortness of breath, pain with inspiration, tachycardia, low-grade fever, right lower extremity edema and pain. CTA was negative for PE but was showing left upper lobe infiltrate and some adenopathy. Bilateral lower extremity Doppler negative for DVT. Patient was treated for upper respiratory infection with antibiotics, her chemotherapy was held. She returned to the office 02/08/21 for reevaluation to resume treatment but, unfortunately her symptoms persisted. Still short of breath, nonproductive cough, generalized malaise. Patient was sent to the emergency department for evaluation and treatm ent. Chest x-ray showing a left perihilar infiltrate. She is on antibiotics, pending Pulmonary evaluation. She denies any overt fever, chills, she had some mild nausea, felt to be more related to postnasal drip, no vomiting, indigestion, heartburn, chest pain, acute changes in bowel or bladder habits, mild swelling in the lower extremities persists, not progressive. No other complaints, he does not require oxygen. Review of Systems 10 point ROS is neg except as stated in HPI Past Medical History Past Medical History: Cancer, Eye Disorder, GERD/Reflux, Neurologic Disorder, Thyroid Disorder Additional Past Medical History / Comment(s): Migraines; leaky mitral valve and tachycardia; CHIARI MALFORMATION; palpitations; ulcer in ; hx hiatal hernia; daily headaches; tinnitus timo ears; acute angular glaucoma-corrected with surgery; 10/30/20 right breast and axillary lymph node biopsy with invasive ductal carcinoma; History of Any Multi-Drug Resistant Organisms: None Reported Past Surgical History: Breast Surgery, Section, Cholecystectomy, Hysterectomy, Orthopedic Surgery Additional Past Surgical History / Comment(s): left knee arthroscopy; rt breast lumpectomy benign; DECOMPRESSION SURGERY SECONDARY TO CHIARI MALFORMATION; C/S x3; vaginal cyst removed; timo eye surgery for glaucoma; 10/30/20 right breast and axillary lymph node biopsy with invasive ductal carcinoma; Past Anesthesia/Blood Transfusion Reactions: Family History of Problems w/ Anesthesia Additional Past Anesthesia/Blood Transfusion Reaction / Comm: Mother woke during surgery. Past Psychological History: No Psychological Hx Reported Smoking Status: Former smoker Past Alcohol Use History: Occasional Past Drug Use History: None Reported - Past Family History Mother Family Medical History: Cancer, Deep Vein Thrombosis (DVT), Pulmonary Embolus Additional Family Medical History / Comment(s): Breast Cancer left breast intraductal carcinoma in 1998 Medications and Allergies Home Medications Medication Instructions Recorded Confirmed Type DULoxetine HCL [Cymbalta] 120 mg PO HS 03/30/20 02/08/21 History Levothyroxine Sodium 25 mcg PO DAILY 03/30/20 02/08/21 History traMADol HCL 50 mg PO BID PRN 03/30/20 02/08/21 History traZODone HCL 150 mg PO HS 03/30/20 02/08/21 History Cyclobenzaprine [Flexeril] 5 mg PO HS PRN 07/01/20 02/08/21 History ARIPiprazole [Abilify] 2 mg PO HS 09/16/20 02/08/21 History Propranolol [Inderal] 40 mg PO BID 09/16/20 02/08/21 History Butalb/APAP/Caff 50-325-40Mg 1 tab PO Q6H PRN 02/08/21 02/08/21 History [Fioricet 50-325-40] Dexamethasone [Decadron] 4 - 8 mg PO DIRECTED 02/08/21 02/08/21 History HYDROcodone/APAP 7.5-325MG [[place] 1 tab PO Q12H PRN 02/08/21 02/08/21 History 7.5-325] Govind's Solution 5 ml PO QID 02/08/21 02/08/21 History LORazepam [Ativan] 0.5 mg PO TID PRN 02/08/21 02/08/21 History Levofloxacin [Levaquin] 750 mg PO DAILY 02/08/21 02/08/21 History Lidocaine-Prilocaine Cream [Emla 1 applic TOPICAL DIRECTED PRN 02/08/21 02/08/21 History Cream 2.5%/2.5%] Omeprazole 40 mg PO DAILY 02/08/21 02/08/21 History Ondansetron Odt [Zofran Odt] 4 mg PO Q6H PRN 02/08/21 02/08/21 History Sennosides/Docusate Sodium [Senna 1 cap PO HS PRN 02/08/21 02/08/21 History Plus 8.6-50 mg Softgel] cycloSPORINE [Restasis] 1 drop BOTH EYES BID 02/08/21 02/08/21 History Allergies Allergy/AdvReac Type Severity Reaction Status Date / Time Cephalosporins Allergy Rash/Hives/throat Verified 02/08/21 11:53 swelling topiramate [From Topamax] AdvReac Severe mood swings Verified 02/08/21 11:53 Physical Exam Vitals: Vital Signs Temp Pulse Pulse Resp BP BP Pulse Ox 02/09/21 09:44 98.0 F 94 16 106/63 97 02/09/21 06:47 77 18 02/09/21 06:46 98.2 F 77 18 90/53 95 02/09/21 05:32 97.9 F 79 16 96/68 96 02/09/21 05:28 18 02/08/21 22:05 86 18 86/64 96 02/08/21 14:30 97.6 F 87 18 110/77 95 02/08/21 13:30 86 18 106/77 96 02/08/21 13:05 93 18 98/76 97 02/08/21 12:30 83 18 112/76 95 02/08/21 10:58 98.1 F 105 H 18 103/72 96 Intake and Output 02/08/21 02/09/21 02/09/21 22:59 06:59 14:59 Intake Total 950 Balance 950 Intake: Intake, IV Titration 950 Amount Azithromycin 500 mg In 250 Sodium Chloride 0.9% 250 ml @ 250 mls/hr IVPB DAILY [facility] Rx#:[id number] Piperacillin-Tazobactam 3 100 .375 gm In Sodium Chloride 0.9% 100 ml @ 200 mls/hr IVPB ONCE STA Rx#:[id number] Piperacillin-Tazobactam 3 100 .375 gm In Sodium Chloride 0.9% 100 ml @ 25 mls/hr IVPB Q8H [facility] Rx#: [id number] Sodium Chloride 0.9% 500 500 ml 500 ml @ 999 mls/hr IV .Q31M [facility] Rx#:[id number] Other: Voiding Method Toilet Toilet # Voids 2 Weight 90.265 kg - Constitutional General appearance: cooperative, no acute distress, obese - EENT Eyes: anicteric sclerae, EOMI ENT: hearing grossly normal, normal oropharynx - Neck Neck: no lymphadenopathy - Respiratory Respiratory: bilateral: CTA - Cardiovascular Rhythm: regular Heart sounds: normal: S1, S2 Abnormal Heart Sounds: no systolic murmur, no diastolic murmur, no rub, no S3 Gallop, no S4 Gallop, no click, no other leg Peripheral Edema: bilateral: None - Gastrointestinal General gastrointestinal: no absent bowel sounds, no decreased bowel sounds, no distended, no hepatomegaly, no hyperactive bowel sounds, normal bowel sounds, no organomegaly, no rigid, no scaphoid, soft, no splenomegaly, no tenderness, no umbilical hernia, no ventral hernia - Integumentary Integumentary: normal - Neurologic Neurologic: CNII-XII intact - Musculoskeletal Musculoskeletal: strength equal bilaterally - Psychiatric Psychiatric: A&O x's 3, appropriate affect, intact judgment & insight Results CBC & Chem 7: 02/08/21 11:52 02/08/21 11:52 Labs: Abnormal Lab Results - Last 24 Hours (Table) 02/08/21 02/08/21 02/08/21 Range/Units 11:52 11:52 11:52 RBC 3.09 L (3.80-5.40) m/uL Hgb 9.8 L (11.4-16.0) gm/dL Hct 30.2 L (34.0-46.0) % RDW 16.5 H (11.5-15.5) % Plt Count 653 H (150-450) k/uL Neutrophils # 7.9 H (1.3-7.7) k/uL Lymphocytes # 0.7 L (1.0-4.8) k/uL Glucose 112 H (74-99) mg/dL Total Protein 6.1 L (6.3-8.2) g/dL Procalcitonin 0.12 H (0.02-0.09) ng/mL Chest x-ray: report reviewed Assessment and Plan (1) Failure of outpatient treatment Narrative/Plan: Failure of outpt Tx with oral antibiotics for suspected URI/pneumonia. CXR showing Lt perihilar infiltrate. Abx ordered. Pulm consulted. Pt states wanting and expectorant, mucinex ordered. Current Visit: Yes Status: Acute Priority: High Code(s): Z78.9 - OTHER SPECIFIED HEALTH STATUS SNOMED Code(s): 894578513 (2) Breast cancer, right Narrative/Plan: Pt has 3 neoadjuvant. Dose dense Taxol treatments remaining. She will resume treatment once her current condition is satisfactorily treated. Current Visit: Yes Status: Acute Priority: Medium Code(s): C50.911 - MALIGNANT NEOPLASM OF UNSP SITE OF RIGHT FEMALE BREAST SNOMED Code(s): 856815441 (3) Anemia Narrative/Plan: Normocytic, normochromic with a high RDW. Most consistent with anemia from antineoplastic medications. No need for transfusion. Her platelet count is noted to be slightly elevated As well. Will check iron studies. Current Visit: Yes Status: Acute Priority: Medium Code(s): D64.9 - ANEMIA, UNSPECIFIED SNOMED Code(s): 769279142
[2021-02-09] MEDS: ARIPiprazole 2 MG TAB PO SCH (20:33)
[2021-02-09] MEDS: DULoxetine HCL 60 MG CAPSULE.DR PO SCH (20:33)
[2021-02-09] MEDS: CYCLOBENZAPRINE 5 MG TAB PO PRN (20:34)
[2021-02-09 22:59] VITALS: RESP 18
[2021-02-10] MEDS: LEVOTHYROXINE 25 MCG TAB PO SCH (06:37)
[2021-02-10] MEDS: PANTOPRAZOLE 40 MG TABLET PO SCH (06:37)
--- NOTE | 2021-02-10 08:40 | P.PN ---
Subjective Progress Note Date: 02/10/21 HISTORY OF PRESENT ILLNESS This is a 45-year-old male patient of Dr. Oconnell newly established in the office in December. Patient has past medical history of malignant neoplasm of the right breast, hypothyroidism, generalized anxiety disorder, migraine headache, recurrent depression, chronic reflux esophagitis, Chiari malformation, spondylosis of the lumbar spine. Patient follows with Dr. Bowden and Swathi Randolph [employer] regarding breast cancer treatment. Patient states that chemotherapy, Taxol, was on hold last week due to pneumonia. Patient has been on Levaquin and completed a seven-day course. She returned to the office for recheck with oncology and she continued to have cough with shortness of breath and heavy chest. No fever or chills. No rashes, no sore throat, no diarrhea. Patient was advised to come in the hospital for further evaluation. Patient was found to be afebrile, heart rate 105 initially, repeat in the 80s and 90s. Blood pressure 103/72, pulse ox 96% on room air. WBC 9.4, hemoglobin 9.8, platelet count 653. Electrolytes and renal functions are normal. Blood sugar 112. Liver function tests are normal. Calcium 10. Total protein 6.1. Pro-calcitonin 0.12. Coronavirus PCR not detected. Chest x-ray reveals left perihilar infiltrate. Repeat chest x-ray 02/09 and unchanged. CTA of the chest performed on 02/01 revealed no evidence of pulmonary embolism. 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 Pulmonary infiltrates are increased compared to PET scan of 11/04 and consistent with acute pneumonia. Patient has been admitted to the cardiac stepdown unit/MedSurg floor overflow, consult with pulmonary medicine appreciated. 02/10: Patient is seen and followed by pulse medicine. She was seen yesterday by oncology. Plan is the patient will resume chemotherapy treatments once current respiratory condition is resolved. Legionella is pending. Patient has been afe brile, heart rate 78, blood pressure remains low 88/51, pulse ox 95% on room air. The patient states that she did not sleep well due to the noise on the nursing unit. She denies any sputum production and sputum cultures not obtained. She denies any fever or chills. She does complain of some tightness in her chest with deep breathing. No abdominal pain. No diarrhea. She does have a headache in the back of her head. REVIEW OF SYSTEMS Constitutional: No fever, no chills, no night sweats. No weight change. No weakness, fatigue or lethargy. No daytime sleepiness. EENT: No headache. No blurred vision or double vision, no loss of vision. No loss of Hearing, no ringing in the ears, no dizziness. No nasal drainage or congestion. No epistaxis. No sore throat. Lungs: Denies shortness of breath, reports rare cough, no sputum production. No wheezing. Cardiovascular: Reports chest tightness with deep breathing, no lower extremity edema. No palpitations. No paroxysmal nocturnal dyspnea. No orthopnea. No lightheadedness or dizziness. No syncopal episodes. Abdominal: No abdominal pain. No nausea, vomiting. No diarrhea. No constipation. No bloody or tarry stools.. No loss of appetite. Genitourinary: No dysuria, increased frequency, urgency. No urinary retention. Musculoskeletal: No myalgias. No muscle weakness, no gait dysfunction, no frequ ent falls. No back pain. No neck pain. Integumentary: No wounds, no lesions. No rash or pruritus. No unusual bruising. No change in hair or nails. Neurologic: No aphasia. No facial droop. No change in mentation. No head injury. No headache. No paralysis. No paresthesia. Psychiatric: No depression. No anxiety. No mood swings. Endocrine: No abnormal blood sugars. No weight change. PHYSICAL EXAMINATION Gen: This is a 45-year-old obese female. She is resting in bed appears to be comfortable and in no acute distress. HEENT: Head is atraumatic, normocephalic. Pupils equal, round. Sclerae is anicteric. Scalp alopecia. NECK: Supple. No JVD. No lymphadenopathy. No thyromegaly. LUNGS: Slightly diminished, no wheezes. No intercostal retractions. HEART: Regular rate and rhythm. No murmur. Mediport to the right upper anterior chest wall. ABDOMEN: Soft. Bowel sounds are present. No masses. No tenderness. EXTREMITIES: No pedal edema. No calf tenderness. NEUROLOGICAL: Patient is awake, alert and oriented x3. Cranial nerves 2 through 12 are grossly intact. ASSESSMENT AND PLAN 1. Possible left-sided pneumonia, failed outpatient treatment. Consult with pulmonary medicine appreciated. per Dr. Hodge, previous CAT scan has lesions concerning for malignancy versus pneumonia. Continue antibiotics the form of azithromycin and Zosyn, Mucinex 600 mg every 12 hours. Legionella testing is pending. 2. Right-sided breast cancer under the care of Dr. Bowden. Consult with oncology appreciated. Chemotherapy is currently on hold due to lung infection. 3. Anemia secondary to chemotherapy. 4 Hypothyroidism. Continue levothyroxine 25 g daily. 5 Gastroesophageal reflux disease. Continue Protonix 40 mg daily oral. 6 Generalized anxiety disorder and recurrent depression. Continue Abilify 2 mg at bedtime, Cymbalta 120 mg at bedtime, Ativan 0.5 mg 3 times daily as needed, trazodone 150 mg at bedtime. 7 History of migraine headaches. Continue Inderal 40 mg twice daily. 8 Chiari malformation, stable. 9. Spondylosis of the lumbar spine, stable. 10. Acute angle glaucoma, stable. 11. DVT prophylaxis. Heparin subcu DISCHARGE PLAN Home. Impression and plan of care have been directed as dictated by the signing physician. Mariana Jameson nurse practitioner acting as scribe for signing physician. Objective - Vital Signs Vital signs: Vital Signs Temp 98.1 F 02/09/21 22:58 Pulse 78 02/09/21 22:58 Resp 18 02/09/21 22:58 BP 88/51 02/09/21 22:58 Pulse Ox 95 02/09/21 22:58 Intake & Output 02/09/21 02/10/21 02/10/21 18:59 06:59 18:59 Intake Total 543 Balance 543 Intake: Oral 543 Other: Voiding Method Toilet Toilet # Voids 2 1 - Labs CBC & Chem 7: 02/08/21 11:52 02/08/21 11:52 Labs: Microbiology - Last 24 Hours (Table) 02/08/21 11:52 Blood Culture - Preliminary Blood No Growth after 24 hours 02/08/21 11:52 Blood Culture - Preliminary Blood No Growth after 24 hours
[2021-02-10] MEDS: MAG HYDROX/AL HYDROX/SIMETH 30 ML, LIDOCAINE VISCOUS 30 ML, diphenhydrAMINE ELIXIR 75 M... PO SCH ×16 (09:10→20:23)
[2021-02-10] MEDS: PROPRANOLOL 40 MG TAB PO SCH ×2 (09:13→20:23)
[2021-02-10] MEDS: guaiFENesin 600 MG TABLET.ER PO SCH ×2 (09:14→20:23)
[2021-02-10] MEDS: AZITHROMYCIN 500 MG in SODIUM CHLORIDE 0.9% 250 ML IVPB SCH (09:14)
[2021-02-10] MEDS: HEPARIN SODIUM,PORCINE/PF 5,000 UNIT/0.5 ML SYRINGE SQ SCH ×2 (09:14→20:23)
[2021-02-10] MEDS: PIPERACILLIN-TAZOBACTAM 3.375 GM in SODIUM CHLORIDE 0.9% 100 ML IVPB SCH ×3 (09:16→18:09)
--- NOTE | 2021-02-10 11:25 | P.PN ---
Subjective Progress Note Date: 02/10/21 45-year-old female patient coming in with increased shortness of breath. She's been sick for more than 10 days and she was put on antibiotics on outpatient basis without any much improvement and for that reason she was sent over to the hospital. The patient is known to have underlying breast cancer. She is morbidly obese. She has a history of CAD a malformation, migraines, depression, chronic pain and hypothyroidism. The patient is coming in with a white cell count of 9.4. Electrolytes are all within normal limits. COVID-19 testing onset but occasions have been negative and this was done on 02/03/2021 02/08/2021. Computed tomography scan of the chest done in the emergency on 02/01/2021 showed no evidence of any pulmonary embolism. There was a left- sided pulmonary infiltrate and some lymphadenopathy within the left hilum and peribronchial area and the area is showing some enlarged lymph nodes as large as 2 cm in size and the lymph nodes are calcified. There was another 2 x 1.5 cm n odular density in the subpleural area and the lateral aspect of the left lower lobe and the superior segment. The left-sided pulmonary infiltrate and the bronchial lymphadenopathy and calcification is probably related to an old granulomatous disease. Nevertheless, it was thought that the pulmonary infiltration and gotten worse since the PET scan of October 2020 and there was a concern for underlying superinfection. Her current pulse ox 97% on room air. She is covered with a combination of antibiotics including Zithromax and Zosyn. The patient is afebrile.. The patient was seen by oncology [employer] and she was given Levaquin 750 mg one week and she completed the antibiotics today. She did not s ee any improvement. She has started the systemic chemotherapy. She skipped the last dose of systemic chemo based on an ongoing respiratory difficulties. 02/09/2021, the patient's breathing is essentially untreated same as yesterday. She is afebrile. She is hemodynamically stable pulse oxing 97% on room air oxygen. 4 calcitonin level was at 0.12. Remains on broad-spectrum antibiotics with a combination of Zosyn and Zithromax. No other significant issues otherwise for now. Repeat chest x-ray was done today and repeat chest x-ray showed ongoing left perihilar infiltration and calcification of the left perihilar lymph nodes. No significant sputum production. No pleurisy. On today's follow-up on 02/10/2021 patient seen on selective care unit, she states she is feeling better today, she has been able to get up and ambulate in the room, and she denies any significant exertional dyspnea, no cough, no wheezing, lung sounds are diminished at the bases, no crackles, no rhonchi. She's had no fevers or chills, hemodynamically she is stable, she is on room air oxygen of 94-95%, breathing is nonlabored. No use of accessory muscles of breathing, no new chest x-rays or labs today, she remains on Zosyn for empiric antibiotic coverage, her blood cultures have been negative, patient was not able to produce any sputum sample for culture. Pro Calcitonin level was low at 0.12 on admission, patient tested negative for coronavirus. Her chest x-ray yesterday showed left perihilar infiltrate which is stable in appearance, in her CTA chest from 02/01/2021 showed no evidence of pulmonary embolism, it did show mild reticular interstitial infiltrate in the left mid and lower lung field atelectasis at both lung bases. Clinically patient has remained stable, and she reports some improvement with her breathing, coughing, and dyspnea Objective - Vital Signs Vital signs: Vital Signs Temp 98.1 F 02/10/21 08:00 Pulse 83 02/10/21 08:00 Resp 18 02/10/21 08:00 BP 89/57 02/10/21 08:00 Pulse Ox 94 L 02/10/21 08:00 Intake & Output 02/09/21 02/10/21 02/10/21 18:59 06:59 18:59 Intake Total 543 240 Balance 543 240 Intake: Oral 543 240 Other: Voiding Method Toilet Toilet # Voids 2 1 - Exam GENERAL EXAM: Alert, very pleasant, 45-year-old white female, comfortable in no apparent distress. HEAD: Normocephalic/atraumatic. patient has alopecia related to recent history of chemotherapy for a history of breast cancer EYES: Normal reaction of pupils, equal size. Conjunctiva pink, sclera white. NOSE: Clear with pink turbinates. THROAT: No erythema or exudates. NECK: No masses, no JVD, no thyroid enlargement, no adenopathy. CHEST: No chest wall deformity. Symmetrical expansion. LUNGS: Equal air entry with no crackles, wheeze, rhonchi or dullness. CVS: Regular rate and rhythm, normal S1 and S2, no gallops, no murmurs, no rubs ABDOMEN: Soft, nontender. No hepatosplenomegaly, normal bowel sounds, no guarding or rigidity. EXTREMITIES: No clubbing, no edema, no cyanosis, 2+ pulses and upper and lower extremities. MUSCULOSKELETAL: Muscle strength and tone normal. SPINE: No scoliosis or deformity SKIN: No rashes CENTRAL NERVOUS SYSTEM: Alert and oriented -3. No focal deficits, tone is normal in all 4 extremities. PSYCHIATRIC: Alert and oriented -3. Appropriate affect. Intact judgment and insight. - Labs CBC & Chem 7: 02/08/21 11:52 02/08/21 11:52 Labs: Microbiology - Last 24 Hours (Table) 02/08/21 11:52 Blood Culture - Preliminary Blood No Growth after 24 hours 02/08/21 11:52 Blood Culture - Preliminary Blood No Growth after 24 hours Assessment and Plan Plan: Assessment: #1. questionable left perihilar pulmonary infiltrate. Note that the patient had a CAT scan of the chest done on 02/01/2021 and a left hilar area showed some enlarged peribronchial lymph nodes that were calcified and this was a representation of an alkaline with this infection. There was some very poor infiltration in addition. In addition to that, there is not another lesion in the lateral aspect of the left lower lobe and the superior segment and this looks quite concerning for malignancy versus pneumonia. On today's chest x-ray, the same abnormality is are seen. The remainder of the lungs are clear. She is afebrile. Pulse ox 97% on room air oxygen. She is hemodynamically stable on no pressors. White cell count is at 9.4. The pro calcitonin level LEVEL IS AT 0.12. FOLLOW-UP CHEST X-RAY REMAINS UNCHANGED. #2. breast cancer, right, post lumpectomy and lymph node dissection, currently on systemic chemotherapy. Followed up by oncology on outpatient basis #3. Morbid obesity due to excess calories, BMI 38.0.3 #4. Chiari malformation, post decompression surgery #5. Migraines #6. Depressive disorder #7. Chronic pain syndrome #8. Hypothyroidism #9. chronic anemia, with interval drop in hemoglobin down to 9.8, possibly secondary to systemic chemotherapy #10. history of migraines #11. history of hiatal hernia #12. history of acute angle closure glaucoma #13. chronic anxiety/depression Plan: Patient has remained clinically stable Breathing comfortably, no dyspnea or cough No fever or chills, tolerating ambulation, she is on room air For pulmonary perspective she stable for discharge home today Outpatient follow-up with Dr. Hodge in the office in 7-10 days I performed a history & physical examination of the patient and discussed their management with my nurse practitioner, Elissa Catalan. I reviewed the nurse practitioner's note and agree with the documented findings and plan of care. Lung sounds are positive for diminished breath sounds. The findings and the impression was discussed with the patient. I attest to the documentation by the nurse practitioner. Time with Patient: Less than 30
[2021-02-10 11:59] LABS: % Iron Saturation 10.13 (12.00-45.00)
[2021-02-10 12:14] LABS: Ferritin 536.9 ng/mL (10.0-291.0)
[2021-02-10 16:32] LABS: Immunoglobulin A 85.2 mg/dL (60.0-350.0); Immunoglobulin M 24.2 mg/dL (40.0-280.0)
--- NOTE | 2021-02-10 16:32 | P.PN ---
Subjective Progress Note Date: 02/10/21 Principal diagnosis: pneumonia, Breast cancer, on chemotherapy In follow-up today patient states feeling much better than on admission. No fevers, oral irritation, nausea, vomiting, cough is decreasing, no purulent sputum or hemoptysis, denies diarrhea. She is ambulatory. Objective - Vital Signs Vital signs: Vital Signs Temp 98.1 F 02/10/21 08:00 Pulse 83 02/10/21 08:00 Resp 18 02/10/21 08:00 BP 89/57 02/10/21 08:00 Pulse Ox 94 L 02/10/21 08:00 Intake & Output 02/09/21 02/10/21 02/10/21 18:59 06:59 18:59 Intake Total 543 640 Balance 543 640 Intake: Oral 543 640 Other: Voiding Method Toilet Toilet # Voids 2 1 - Constitutional General appearance: Present: cooperative, no acute distress, obese - EENT Eyes: Present: anicteric sclerae, EOMI ENT: Present: hearing grossly normal, normal oropharynx - Respiratory Respiratory: bilateral: CTA - Cardiovascular Rhythm: regular Heart sounds: normal: S1, S2 Abnormal Heart Sounds: Absent: systolic murmur, diastolic murmur, rub, S3 Gallop, S4 Gallop, click, other - Gastrointestinal General gastrointestinal: Present: normal bowel sounds, soft - Integumentary Integumentary: Present: normal - Neurologic Neurologic: Present: CNII-XII intact - Musculoskeletal Musculoskeletal: Present: strength equal bilaterally - Psychiatric Psychiatric: Present: A&O x's 3, appropriate affect, intact judgment & insight - Labs CBC & Chem 7: 02/08/21 11:52 02/08/21 11:52 Labs: Abnormal Lab Results - Last 24 Hours (Table) 02/10/21 Range/Units 06:02 Iron 31 L (50-170) ug/dL % Saturation 10.13 L (12.00-45.00) Ferritin 536.9 H (10.0-291.0) ng/mL Microbiology - Last 24 Hours (Table) 02/08/21 11:52 Blood Culture - Preliminary Blood No Growth after 48 hours 02/08/21 11:52 Blood Culture - Preliminary Blood No Growth after 48 hours Assessment and Plan (1) Failure of outpatient treatment Narrative/Plan: Failure of outpt Tx with oral antibiotics for suspected URI/pneumonia. CXR showing Lt perihilar infiltrate. Pulm following. Abx continue, pt improved Current Visit: Yes Status: Acute Priority: High Code(s): Z78.9 - OTHER SPECIFIED HEALTH STATUS SNOMED Code(s): 194265455 (2) Breast cancer, right Narrative/Plan: Pt has 3 neoadjuvant DD Taxol treatments remaining. She will resume treatment once her current condition is satisfactorily treated. Current Visit: Yes Status: Acute Priority: Medium Code(s): C50.911 - MALIGNANT NEOPLASM OF UNSP SITE OF RIGHT FEMALE BREAST SNOMED Code(s): 390446224 (3) Anemia Narrative/Plan: Normocytic, normochromic with a high RDW. Most consistent with anemia from antineoplastic medications. CBC in the a.m. Her platelet count is noted to be slightly elevated As well. Iron studies most consistent with anemia of inflammation-elevated ferritin with low saturation and iron. No supplementation at this time. This will be rechecked in the outpatient setting once her current condition has been adequately treated. Supplementation will be considered at that time Current Visit: Yes Status: Acute Priority: Medium Code(s): D64.9 - ANEMIA, UNSPECIFIED SNOMED Code(s): 015457897
[2021-02-10] MEDS: DULoxetine HCL 60 MG CAPSULE.DR PO SCH (20:23)
[2021-02-10] MEDS: ARIPiprazole 2 MG TAB PO SCH (20:23)
[2021-02-11] MEDS: PIPERACILLIN-TAZOBACTAM 3.375 GM in SODIUM CHLORIDE 0.9% 100 ML IVPB SCH ×2 (00:10→08:49)
[2021-02-11] MEDS: HYDROcodone/APAP 7.5-325MG 1 EACH TAB PO PRN (00:12)
[2021-02-11] MEDS: LEVOTHYROXINE 25 MCG TAB PO SCH (06:25)
[2021-02-11] MEDS: PANTOPRAZOLE 40 MG TABLET PO SCH (06:25)
[2021-02-11 07:45] LABS: Anisocytosis Slight; HCT 30.2 % (34.0-46.0); HGB 9.5 gm/dL (11.4-16.0); Hypochromasia Moderate; MCH 31.5 pg (25.0-35.0); MCHC 31.5 g/dL (31.0-37.0); Macrocytosis Slight; Mean Platelet Volume 7.4; Platelet Count 594 k/uL (150-450); Poikilocytosis Slight; RBC 3.02 m/uL (3.80-5.40); RDW 16.3 % (11.5-15.5)
--- NOTE | 2021-02-11 08:12 | P.DS ---
Providers Date of admission: 02/08/21 12:42 Expected date of discharge: 02/11/21 Attending physician: Marielle Oconnell Consults: 02/08/21 12:45 Consult Physician Routine Consulting Provider: Vidal Bowden Consult Reason/Comments: Breast cancer on chemotherapy Do you want consulting provider notified?: Yes 02/08/21 12:47 Consult Physician Urgent Consulting Provider: Ida Hodge Consult Reason/Comments: Pneumonia, failed outpatient treatment, breast cancer Do you want consulting provider notified?: Yes Primary care physician: Marielle Oconnell Hospital Course: HISTORY OF PRESENT ILLNESS This is a 45-year-old male patient of Dr. Oconnell newly established in the office in December. Patient has past medical history of malignant neoplasm of the right breast, hypothyroidism, generalized anxiety disorder, migraine headache, recurrent depression, chronic reflux esophagitis, Chiari malformation, spondylosis of the lumbar spine. Patient follows with Dr. Bowden and Swathi Rnadolph [employer] regarding breast cancer treatment. Patient states that chemotherapy, Taxol, was on hold last week due to pneumonia. Patient has been on Levaquin and completed a seven-day course. She returned to the office for recheck with oncology and she continued to have cough with shortness of breath and heavy chest. No fever or chills. No rashes, no sore throat, no diarrhea. Patient was advised to come in the hospital for further evaluation. Patient was found to be afebrile, heart rate 105 initially, repeat in the 80s and 90s. Blood pressure 103/72, pulse ox 96% on room air. WBC 9.4, hemoglobin 9.8, platelet count 653. Electrolytes and renal functions are normal. Blood sugar 112. Liver function tests are normal. Calcium 10. Total protein 6.1. Pro-calcitonin 0.12. Coronavirus PCR not detected. Chest x-ray reveals left perihilar infiltrate. Repeat chest x-ray 02/09 and unchanged. CTA of the chest performed on 02/01 revealed no evidence of pulmonary embolism. 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 Pulmonary infiltrates are increased compared to PET scan of 11/04 and consistent with acute pneumonia. Patient has been admitted to the cardiac stepdown unit/MedSurg floor overflow, consult with pulmonary medicine appreciated. 02/10: Patient is seen and followed by pulse medicine. She was seen yesterday by oncology. Plan is the patient will resume chemotherapy treatments once current respiratory condition is resolved. Legionella is pending. Patient has been afebrile, heart rate 78, blood pressure remains low 88/51, pulse ox 95% on room air. The patient states that she did not sleep well due to the noise on the nursing unit. She denies any sputum production and sputum cultures not obtained. She denies any fever or chills. She does complain of some tightness in her chest with deep breathing. No abdominal pain. No diarrhea. She does have a headache in the back of her head. 02/11: Patient was seen bipolar medicine yesterday and was cleared for discharge. This morning patient states that she is feeling very well and much improved in coughing, shortness of breath. She is anxious to go home today. Patient is afebrile, heart rate 76, blood pressure 98/59, pulse ox 95% on room air. Repeat blood work this morning reveals WBC 7, hemoglobin 9.5, platelet count 594. Legionella was negative. Patient will be discharged home today with a course of azithromycin. Patient discharged in stable condition. ASSESSMENT AND PLAN 1. Possible left-sided pneumonia, failed outpatient treatment. 2. Right-sided breast cancer under the care of Dr. Bowden. 3. Anemia secondary to chemotherapy. 4 Hypothyroidism. 5 Gastroesophageal reflux disease. 6 Generalized anxiety disorder and recurrent depression. 7 History of migraine headaches. 8 Chiari malformation, stable. 9. Spondylosis of the lumbar spine, stable. 10. Acute angle glaucoma, stable. DISCHARGE PLAN Home. Impression and plan of care have been directed as dictated by the signing physician. Mariana Jameson nurse practitioner acting as scribe for signing physician. Patient Condition at Discharge: Good Plan - Discharge Summary Discharge Rx Participant: Yes New Discharge Prescriptions: New guaiFENesin [Mucinex] 600 mg PO Q12HR tablet.er Azithromycin [Zithromax] 500 mg PO DAILY #7 tab Continue traZODone HCL 150 mg PO HS traMADol HCL 50 mg PO BID PRN PRN Reason: Pain DULoxetine HCL [Cymbalta] 120 mg PO HS Levothyroxine Sodium 25 mcg PO DAILY Cyclobenzaprine [Flexeril] 5 mg PO HS PRN PRN Reason: Pain,MUSCLE SPASM Propranolol [Inderal] 40 mg PO BID ARIPiprazole [Abilify] 2 mg PO HS Butalb/APAP/Caff 50-325-40Mg [Fioricet 50-325-40] 1 tab PO Q6H PRN PRN Reason: Migraine Headache HYDROcodone/APAP 7.5-325MG [Noonan 7.5-325] 1 tab PO Q12H PRN PRN Reason: Pain Dexamethasone [Decadron] 4 - 8 mg PO DIRECTED LORazepam [Ativan] 0.5 mg PO TID PRN PRN Reason: Nausea Govind's Solution 5 ml PO QID Sennosides/Docusate Sodium [Senna Plus 8.6-50 mg Softgel] 1 cap PO HS PRN PRN Reason: Constipation Lidocaine-Prilocaine Cream [Emla Cream 2.5%/2.5%] 1 applic TOPICAL DIRECTED PRN PRN Reason: PORT ACCESS Ondansetron Odt [Zofran ODT] 4 mg PO Q6H PRN PRN Reason: Nausea Omeprazole 40 mg PO DAILY cycloSPORINE [Restasis] 1 drop BOTH EYES BID Discontinued Levofloxacin [Levaquin] 750 mg PO DAILY Discharge Medication List DULoxetine HCL [Cymbalta] 120 mg PO HS 03/30/20 [History] Levothyroxine Sodium 25 mcg PO DAILY 03/30/20 [History] traMADol HCL 50 mg PO BID PRN 03/30/20 [History] traZODone HCL 150 mg PO HS 03/30/20 [History] Cyclobenzaprine [Flexeril] 5 mg PO HS PRN 07/01/20 [History] ARIPiprazole [Abilify] 2 mg PO HS 09/16/20 [History] Propranolol [Inderal] 40 mg PO BID 09/16/20 [History] Butalb/APAP/Caff 50-325-40Mg [Fioricet 50-325-40] 1 tab PO Q6H PRN 02/08/21 [History] Dexamethasone [Decadron] 4 - 8 mg PO DIRECTED 02/08/21 [History] HYDROcodone/APAP 7.5-325MG [Noonan 7.5-325] 1 tab PO Q12H PRN 02/08/21 [History] Govind's Solution 5 ml PO QID 02/08/21 [History] LORazepam [Ativan] 0.5 mg PO TID PRN 02/08/21 [History] Lidocaine-Prilocaine Cream [Emla Cream 2.5%/2.5%] 1 applic TOPICAL DIRECTED PRN 02/08/21 [History] Omeprazole 40 mg PO DAILY 02/08/21 [History] Ondansetron Odt [Zofran ODT] 4 mg PO Q6H PRN 02/08/21 [History] Sennosides/Docusate Sodium [Senna Plus 8.6-50 mg Softgel] 1 cap PO HS PRN 02/08/21 [History] cycloSPORINE [Restasis] 1 drop BOTH EYES BID 02/08/21 [History] Azithromycin [Zithromax] 500 mg PO DAILY #7 tab 02/11/21 [Rx] guaiFENesin [Mucinex] 600 mg PO Q12HR tablet.er 02/11/21 [Rx] Follow up Appointment(s)/Referral(s): Marielle Oconnell MD [Primary Care Provider] - 1 Week Ida Hodge MD [STAFF PHYSICIAN] - 1 Week Discharge Disposition: HOME SELF-CARE
[2021-02-11 08:22] LABS: ALT 25 U/L (4-34); AST 25 U/L (14-36); African American GFR (CKD) >90 (>60 ml/min/1.73 sqM); Albumin 3.4 g/dL (3.5-5.0); Alkaline Phosphatase 108 U/L (38-126); Anion Gap 9 mmol/L; Blood Urea Nitrogen 8 mg/dL (7-17); Calcium 9.3 mg/dL (8.4-10.2); Carbon Dioxide 25 mmol/L (22-30); Chloride 106 mmol/L (98-107); Glucose 98 mg/dL (74-99); Non-African American GFR(CKD) >90 (>60 ml/min/1.73 sqM); Potassium 4.4 mmol/L (3.5-5.1); Sodium 140 mmol/L (137-145); Total Bilirubin 0.2 mg/dL (0.2-1.3); Total Protein 5.7 g/dL (6.3-8.2)
[2021-02-11] MEDS: HEPARIN SODIUM,PORCINE/PF 5,000 UNIT/0.5 ML SYRINGE SQ SCH (08:48)
[2021-02-11] MEDS: PROPRANOLOL 40 MG TAB PO SCH (08:48)
[2021-02-11] MEDS: guaiFENesin 600 MG TABLET.ER PO SCH (08:48)
[2021-02-11] MEDS: MAG HYDROX/AL HYDROX/SIMETH 30 ML, LIDOCAINE VISCOUS 30 ML, diphenhydrAMINE ELIXIR 75 M... PO SCH ×8 (08:49→11:13)
[2021-02-11] MEDS ORDERED: AZITHROMYCIN 500 MG TAB PO SCH (09:00)
[2021-02-11 09:02] VITALS: BP 104/68; PULSE 72; TEMP 98.7
--- NOTE | 2021-02-11 09:26 | XR ---
EXAMINATION TYPE: XR chest 2V DATE OF EXAM: 02/11/2021 COMPARISON: 02/09/2021 TECHNIQUE: PA and lateral views submitted. HISTORY: Redness of breath FINDINGS: Left perihilar consolidation or mass is stable. Heart size normal and Mediport catheter seen with no sizable pleural effusion or pneumothorax. No interstitial edema. Left perihilar calcifications noted. IMPRESSION: 1. Left perihilar infiltrate versus mass stable.
--- NOTE | 2021-02-11 11:06 | P.PN ---
Subjective Progress Note Date: 02/11/21 Principal diagnosis: pneumonia, Breast cancer, on chemotherapy In follow-up today patient states last evening she felt suddenly like herself again, feels good today, has no c/o, no fever, cough is nearly gone. Objective - Vital Signs Vital signs: Vital Signs Temp 98.7 F 02/11/21 08:00 Pulse 72 02/11/21 08:00 Resp 18 02/11/21 08:00 BP 104/68 02/11/21 08:00 Pulse Ox 97 02/11/21 08:00 Intake & Output 02/10/21 02/11/21 02/11/21 18:59 06:59 18:59 Intake Total 1040 Balance 1040 Weight 90.1 kg Intake: Oral 1040 Other: Voiding Method Toilet # Voids 3 1 - Constitutional General appearance: Present: cooperative, no acute distress, obese - EENT Eyes: Present: anicteric sclerae, EOMI ENT: Present: hearing grossly normal - Respiratory Respiratory: bilateral: CTA - Cardiovascular Rhythm: regular Heart sounds: normal: S1, S2 Abnormal Heart Sounds: Absent: systolic murmur, diastolic murmur, rub, S3 Hendricks p, S4 Gallop, click, other - Peripheral edema leg Peripheral Edema: bilateral: None - Gastrointestinal General gastrointestinal: Present: normal bowel sounds, soft - Integumentary Integumentary: Present: normal, normal turgor - Neurologic Neurologic: Present: CNII-XII intact - Musculoskeletal Musculoskeletal: Present: strength equal bilaterally - Psychiatric Psychiatric: Present: A&O x's 3, appropriate affect, intact judgment & insight - Labs CBC & Chem 7: 02/11/21 06:44 02/11/21 06:44 Labs: Abnormal Lab Results - Last 24 Hours (Table) 02/10/21 02/10/21 02/11/21 Range/Units 06:02 06:02 06:44 RBC 3.02 L (3.80-5.40) m/uL Hgb 9.5 L (11.4-16.0) gm/dL Hct 30.2 L (34.0-46.0) % RDW 16.3 H (11.5-15.5) % Plt Count 594 H (150-450) k/uL Iron 31 L (50-170) ug/dL % Saturation 10.13 L (12.00-45.00) Ferritin 536.9 H (10.0-291.0) ng/mL Total Protein (6.3-8.2) g/dL Albumin (3.5-5.0) g/dL IgG 429.0 L (700.0-1600.0) mg/dL IgM 24.2 L (40.0-280.0) mg/dL 02/11/21 Range/Units 06:44 RBC (3.80-5.40) m/uL Hgb (11.4-16.0) gm/dL Hct (34.0-46.0) % RDW (11.5-15.5) % Plt Count (150-450) k/uL Iron (50-170) ug/dL % Saturation (12.00-45.00) Ferritin (10.0-291.0) ng/mL Total Protein 5.7 L (6.3-8.2) g/dL Albumin 3.4 L (3.5-5.0) g/dL IgG (700.0-1600.0) mg/dL IgM (40.0-280.0) mg/dL Microbiology - Last 24 Hours (Table) 02/08/21 11:52 Blood Culture - Preliminary Blood No Growth after 48 hours 02/08/21 11:52 Blood Culture - Preliminary Blood No Growth after 48 hours - Imaging and Cardiology Chest x-ray: report reviewed Assessment and Plan (1) Failure of outpatient treatment Narrative/Plan: Failure of outpt Tx with oral antibiotics for suspected URI/pneumonia. CXR showing Lt perihilar infiltrate, persists in todays XR. Abx for 7 days outpt seen documented in DC. Pt subjectively much improved Current Visit: Yes Status: Acute Priority: High Code(s): Z78.9 - OTHER SPECIFIED HEALTH STATUS SNOMED Code(s): 927691829 (2) Breast cancer, right Narrative/Plan: Pt has 3 neoadjuvant DD Taxol treatments remaining. Med Onc will have her resume therapy after abx complete Current Visit: Yes Status: Acute Priority: Medium Code(s): C50.911 - MALIGNANT NEOPLASM OF UNSP SITE OF RIGHT FEMALE BREAST SNOMED Code(s): 174714122 (3) Anemia Narrative/Plan: Normocytic, normochromic with a high RDW. Most consistent with anemia from antineoplastic medications. Iron studies most consistent with anemia of inflammation-elevated ferritin with low saturation and iron. No supplementation at this time. This will be rechecked in the outpatient setting once her current condition has been adequately treated. Supplementation will be considered at that time. Current Visit: Yes Status: Acute Priority: Medium Code(s): D64.9 - ANEMIA, UNSPECIFIED SNOMED Code(s): 893088688 (4) Hypogammaglobulinemia Narrative/Plan: 2/2 lymphotoxic chemotherapy. IgG <600. Will supplement outpt. Current Visit: Yes Status: Acute Priority: Low Code(s): D80.1 - NONFAMILIAL HYPOGAMMAGLOBULINEMIA SNOMED Code(s): 843691732
== END 2021-02-11 13:09 | disposition home or self-care (01) | DRG 194 ==
LOC: EC 10:47 → 4SSUR 12:42 → 3SCARD 02-09 06:21
PROVIDERS: ADMIT Internal Medicine; ATTEND Internal Medicine
DX: J18.9 Pneumonia, unspecified organism (principal); F33.9 Major depressive disorder, recurrent, unspecified; D80.1 Nonfamilial hypogammaglobulinemia; H40.219 Acute angle-closure glaucoma, unspecified eye; K21.9 Gastro-esophageal reflux disease without esophagitis; M47.816 Spondylosis without myelopathy or radiculopathy, lumbar region; Q07.00 Arnold-Chiari syndrome without spina bifida or hydrocephalus; T45.1X5A Adverse effect of antineoplastic and immunosuppressive drugs, initial encounter; Z68.38 Body mass index [BMI] 38.0-38.9, adult; Z79.890 Hormone replacement therapy; Z79.899 Other long term (current) drug therapy; Z80.3 Family history of malignant neoplasm of breast; Z82.49 Family history of ischemic heart disease and other diseases of the circulatory system; Z83.3 Family history of diabetes mellitus; I25.10 Atherosclerotic heart disease of native coronary artery without angina pectoris; H40.9 Unspecified glaucoma; Z85.3 Personal history of malignant neoplasm of breast; Z96.652 Presence of left artificial knee joint; Z90.710 Acquired absence of both cervix and uterus; Z87.891 Personal history of nicotine dependence; G89.4 Chronic pain syndrome; G43.909 Migraine, unspecified, not intractable, without status migrainosus; F41.1 Generalized anxiety disorder; E66.01 Morbid (severe) obesity due to excess calories; E03.9 Hypothyroidism, unspecified; F12.90 Cannabis use, unspecified, uncomplicated; D64.81 Anemia due to antineoplastic chemotherapy; C50.911 Malignant neoplasm of unspecified site of right female breast; G89.29 Other chronic pain; Z20.822 Contact with and (suspected) exposure to COVID-19
CPT/HCPCS: 36415; 71046; 80053; 82728; 82747; 82784; 83540; 83550; 83605; 83880; 84145; 85025; 85027; 87040; 87449; 87635; 93005; 96360; 99285

== ENCOUNTER → 2021-02-18 | Outpatient (CLI) | payer MEDICARE, OTHER ==
--- NOTE | 2021-02-18 13:23 | US ---
EXAMINATION TYPE: US venous doppler duplex UE RT DATE OF EXAM: 02/18/2021 COMPARISON: None CLINICAL HISTORY: R19.01 Swelling right upper extremity. Right wrist/hand pain and medial right brach ial fossa pain x 3 days; denies arm swelling; has IJV catheter/port; receiving Chemotherapy for Breas t CA. SIDE PERFORMED: right arm Right arm negative DVT.Negative for SVT Right IJV internal catheter is noted within patent Right IJV. Grayscale, color doppler, spectral doppler imaging performed of the deep veins of the right upper ext remity. There is normal flow, compressibility and vascular waveforms IMPRESSION: No ultrasound evidence for acute deep or superficial venous thrombosis in the right upper extremity. .
== END | disposition home or self-care (01) ==
LOC: RADUSWWP 12:35
PROVIDERS: ATTEND Internal Medicine Hematology & Oncology
DX: R22.41 Localized swelling, mass and lump, right lower limb (principal)

== ENCOUNTER → 2021-03-02 | Outpatient (CLI) | payer MEDICARE, OTHER ==
--- NOTE | 2021-03-02 11:46 | USB ---
Reason for exam: clinical finding. History: Patient is postmenopausal and has history of breast cancer at age 44. Family history of breast cancer in mother at age 45, breast cancer in maternal grandmother, and breast cancer in maternal aunt. Malignant US biopsy breast VAD RT of the right breast, October 30, 2020. Malignant US biopsy breast add'l VAD RT of the right breast, October 30, 2020. Benign excisional biopsy of the right breast, 2004. Physical Findings: Nurse Summary: Patient complains of increased right breast pain x 2 weeks with swelling, right breast red and warm to touch, 2cm lump upper outer quadrant and axillary tail (nurse mj). US Breast RT Right complete breast ultrasound includes all four quadrants, the retroareolar region and axilla. Finding demonstrates a irregular, hypoechoic lesion at 9:30, clip seen, a 0.6 x 0.5 x 0.7cm taller than wide, irregular, hypoechoic, vascular lesion at 10 o'clock, a 1.6 x 0.7 x 1.4cm taller than wide, irregular, hypoechoic lesion at 10 o'clock and a 3.0 x 2.5 x 2.9cm abnormal lymph node, fairly stable at the axilla. Multiple small masses correspond best to MRI 11/10/20 largest decreased in size from ultrasound 10/21/20. No new focal fluid or abscess. These results were verbally communicated with the patient and result sheet given to the patient on 03/02/21. ASSESSMENT: Known biopsy proven malignancy, BI-RAD 6 RECOMMENDATION: Clinical management of the right breast. Manage patient on a clinical basis.
== END | disposition home or self-care (01) ==
LOC: RADUSWWP 08:16
PROVIDERS: ATTEND Internal Medicine Hematology & Oncology
DX: N64.89 Other specified disorders of breast (principal); Z78.0 Asymptomatic menopausal state; Z80.3 Family history of malignant neoplasm of breast; Z85.3 Personal history of malignant neoplasm of breast

== ENCOUNTER → 2021-03-25 | Outpatient (CLI) | payer MEDICARE, OTHER ==
[2021-03-25 09:10] VITALS: BP 109/66; PULSE 98; RESP 16; TEMP 99.4
--- NOTE | 2021-03-25 10:08 | P.PN ---
Subjective Progress Note Date: 03/25/21 Principal diagnosis: stage Vanessa is a 45-year-old white female seen initially in consultation for Dr. Jr Ochoa regarding a palpable mass in her right breast as well as a radiographic abnormality in the right breast. Patient states that about 2 months prior she noted some fullness in the lateral aspect of her right breast. She had a bilateral mammogram performed on 4721. This was felt to be incomplete and an ultrasound of the right breast was recommended. No lesions of concern in the left breast were noted. On ultrasound a 3.4 x 2.4 x 1.5 cm irregular lesion at 10:00 was noted. A 3.9 x 4 cm abnormal lymph node in the axilla was noticed which biopsy was also recommended. The patient's mother underwent a left breast lumpectomy and radiation therapy at the age of 44 for an invasive ductal carcinoma. She did not have any chemo or hormonal therapy. She is doing well at this time. The patient also has two maternal aunts with breast cancer. The patient complained of some tenderness in her right breast at the site of the palpable change. She did not complain of any fever or chills. She had not had any trauma or infection in the breast. The patient does state that her nipples become more sensitive on a monthly basis. She has had a partial hysterectomy 2006, this was done for endometriosis. The patient did have an excisional right breast biopsy in 2004 which was benign. She underwent ultrasound-guided core biopsy of the right breast and right axilla the biopsy revealed grade 2 invasive ductal carcinoma ER/OK 10% HER-2 negative. She underwent genetic testing which was negative. She has completed AC chemotherapy as well as Taxol dense dose 4. She completed her chemotherapy on 9824. She did have an MRI of both breasts performed on [id number] 370. This revealed a large right breast mass with extensive right axillary adenopathy in internal mammary adenopathy. No evidence for any invasive malignancy in the left breast was identified. She also underwent a PET scan on 530 873. This revealed abnormal uptake corresponding to right breast cancer with a retropectoral right axillary and small focus of supraclavicular abnormal uptake. Internal mammary uptake consistent with nonenlarged adenopathy. The patient states since her chemotherapy her breast has become more swollen as well as her areolar. It is also more sensitive. She does not feel it specific lump at this time. She also complains of swelling of her right upper extremity and the dorsum of her hand. She complains of bone and joint pain which is after she receives the Neulasta following her chemotherapy. Family history: Mother breast: cancer at 44 2 maternal aunts: with breast cancer, one aunt also had leukemia Maternal great-aunt: with breast cancer Maternal grandmother: Uterine and cervical cancer Maternal uncle: Brain cancer at a young age Maternal uncle: Leukemia, as a child Hormonal History: menarche: 12 , breast fed: yes, first child born at 17 periods: Status post hysterectomy at 31 for endometriosis, they did not remove her ovaries control pills: about 6 years hormones: none not using hormones now Surgical History: 1. hysterectomy 2. arthroscopic left knee 3. 3 c-sections 4. cyst vaginal wall 5. iredectomys; for acute angular glaucoma 6. gallbladder 7. 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 right breast biopsy Medical History: 1. Budd-Chiari syndrome/migrians 2. hypothyroid 3. tinnitus 4. Fibromyalgia 5. anxiety/depression ALLERGIES: Cephalosporins/Topamax Social history: Nicotine: stopped in 2008, used to smoke 1/PPD for 12 years alcohol: occasional drugs: Marijuana daily for pain/ edible gummies and smokes it as well - Constitutional Constitutional: Reports sweats - EENT Eyes: bilateral as per HPI, bilateral blurred vision, bilateral pain Ears: bilateral: decreased hearing, tinnitus Ears, nose, mouth and throat: Reports headache - Breasts Breasts: bilateral: as per HPI - Cardiovascular: palpations Cardiovascular: Reports shortness of breath since pneumonia much improved - Respiratory Respiratory: Denies cough - Gastrointestinal Gastrointestinal: Reports nausea, Denies abdominal pain, Denies diarrhea, Denies vomiting - Genitourinary (Female) Genitourinary: Denies dysuria, Denies hematuria - Menstruation Menstruation: Reports partial hysterectomy - Musculoskeletal Comment: Fibromyalgia - Integumentary Integumentary: Reports pruritus, Denies rash - Neurological Comment: [place]/status post surgery for this still has headaches Neurological: Reports numbness, bilateral thumbs tips of fingers - Psychiatric Psychiatric: Reports anxiety, Reports depression - Endocrine Comment: hypothyroid - Hematologic/Lymphatic Comment: none Objective - Vital Signs Vital signs: Vital Signs Temp 99.4 F 03/25/21 09:01 Pulse 98 03/25/21 09:01 Resp 16 03/25/21 09:01 BP 109/66 03/25/21 09:01 Pulse Ox 96 03/25/21 09:01 Intake & Output 03/24/21 03/25/21 03/25/21 18:59 06:59 18:59 Weight 91.626 kg - Exam BMI 36.4 - Constitutional General appearance: Present: cooperative - EENT Eyes: Present: EOMI ENT: Present: hearing grossly normal - Neck Neck: Present: normal ROM - Respiratory Respiratory: bilateral: CTA - Cardiovascular Rhythm: regular Heart sounds: normal: S1, S2 - Gastrointestinal General gastrointestinal: Present: soft - Integumentary Integumentary: Present: normal turgor - Musculoskeletal Musculoskeletal: Present: gait normal - Psychiatric Psychiatric: Present: A&O x's 3, appropriate affect, intact judgment & insight - Additional findings Additional findings: Breast: BRA: 40DDD inspection: right breast swollen, left breast grade 2 ptosis palpation: right breast: Swollen, mass upper outer quadrant approximately 5 x 3 cm in size Right axilla: Positive adenopathy Left breast: Multi-positional exam fibrocystic changes, no dominant masses or nodules of concern Left axilla: No adenopathy of concern Assessment and Plan Assessment: Impression: 1. Right breast stage IIB invasive ductal carcinoma status post A/C, dose dense Taxol 2. Lymphedema right upper extremity Plan: I discussed her case with Dr. Hernandez. I've also had a long discussion with the patient and her mother. After discussion the patient wishes for a right breast mastectomy and will most likely have a contralateral mastectomy in the future. Secondary to the positive pre-operative right axillary adenopathy we will also do an axillary node dissection. She will also have preoperative needle localization of the previously biopsied lymph node. We have discussed an appointment with plastic surgery and she is going to delay this until completion of her treatment which would most likely include radiation therapy to the right side. Additionally in the future she will most likely opt for a contralateral mastectomy. Risks and benefits of the procedure were discussed which include but are not limited to bleeding, infection, reaction to the anesthetic. She understands she could have increased lymphedema as well as numbness to the inner arm. Additionally the potential of injury to the thoracodorsal or long thoracic nerves were discussed. The patient understands and wishes to proceed. 2. Right breast mastectomy and axillary node dissection, axillary node needle localization of previously biopsied positive node 3. Ultrasound of the axilla to ascertain the proximity of the lymph nodes to the axillary vessels 3. We are not going to do a PET scan I've discussed this with Dr. Rios 4. CBC prior to surgery 5. Follow-up here with results of ultrasound and CBC the week before surgery 6. Medical clearance from Dr. Oconnell Cc: Dr. Hale
== END ==
LOC: WWCWWP 08:49
PROVIDERS: ATTEND Surgery
DX: C50.911 Malignant neoplasm of unspecified site of right female breast (principal); I89.0 Lymphedema, not elsewhere classified; E03.9 Hypothyroidism, unspecified; F41.9 Anxiety disorder, unspecified; F32.9 Major depressive disorder, single episode, unspecified; Z92.21 Personal history of antineoplastic chemotherapy; Z88.1 Allergy status to other antibiotic agents; Z87.891 Personal history of nicotine dependence; Z88.6 Allergy status to analgesic agent

== ENCOUNTER → 2021-03-30 | Outpatient (CLI) | payer MEDICARE, OTHER ==
--- NOTE | 2021-03-30 11:44 | USB ---
Reason for exam: clinical finding. History: Patient is postmenopausal and has history of breast cancer at age 44. Family history of breast cancer in mother at age 45, breast cancer in maternal grandmother, and breast cancer in maternal aunt. Malignant US biopsy breast VAD RT of the right breast, October 30, 2020. Malignant US biopsy breast add'l VAD RT of the right breast, October 30, 2020. Benign excisional biopsy of the right breast, 2004. Physical Findings: Nurse Summary: right axilla palpable 3 x 3cm, hard, nonmovable, tender, right breast palpable 10 o'clock 2 x 2cm, red, warm, tender with peau d'orange (nurse ts). US Breast Axilla RT Right limited breast ultrasound including focal area of concern, retroareolar and axilla demonstrates a 1.4 x 1.3 x 1.0cm hypoechoic lesion at 9 o'clock, known cancer, versus 1.2 x 1.2 x 1.0cm, a 2.4 x 2.2 x 1.6cm solid, hypoechoic lesion at 10 o'clock, clip seen, known cancer, versus 2.2 x 2.2 x 1.5cm and a 3.5 x 3.1 x 3.2cm known lymph node with cancer at axilla, versus 3.5 x 3.2 x 3.0cm. Two small hypoechoic areas adjacent to each other 10 o'clock zone B/C measure 9mm and 5mm, versus 1.1cm and 7mm previously. Overall stable disease. The two tiny nodules at 10 o'clock are minimally smaller. Scanned 9-11 o'clock and axilla. These results were verbally communicated with the patient and result sheet given to the patient on 03/30/21. ASSESSMENT: Known biopsy proven malignancy, BI-RAD 6 RECOMMENDATION: Surgical consultation of the right breast. Needle localization scheduled for 04/13/21. PRELIMINARY REPORT CALLED AND FAXED TO DR. ANGELES ON 03/30/21.
== END | disposition home or self-care (01) ==
LOC: RADUSWWP 10:15
PROVIDERS: ATTEND Surgery
DX: N63.11 Unspecified lump in the right breast, upper outer quadrant (principal); Z78.0 Asymptomatic menopausal state; Z85.3 Personal history of malignant neoplasm of breast; Z80.3 Family history of malignant neoplasm of breast

== ENCOUNTER → 2021-04-07 | Outpatient (CLI) | payer MEDICARE, OTHER ==
[2021-04-07 23:28] LABS: Basophils # (A) 0.04 X 10*3/uL (0.00-0.10); Basophils % (A) 0.4 %; Eosinophils # (A) 0.36 X 10*3/uL (0.04-0.35); Eosinophils % (A) 3.9 %; HCT 36.6 % (37.2-46.3); HGB 11.2 g/dL (12.0-15.0); Lymphocytes # (A) 0.79 X 10*3/uL (0.90-5.00); Lymphocytes % (A) 8.5 %; MCH 29.7 pg (27.0-32.0); MCHC 30.6 g/dL (32.0-37.0); MCV 97.1 fL (80.0-97.0); Mean Platelet Volume 10.5 fL (9.5-12.2); Monocytes # (A) 0.69 X 10*3/uL (0.20-1.00); Monocytes % (A) 7.5 %; Neutrophils # (A) 7.32 X 10*3/uL (1.80-7.70); Neutrophils % (A) 79.1 %; Platelet Count 422 X 10*3/uL (140-440); RBC 3.77 X 10*6/uL (4.10-5.20); RDW 16.1 % (11.5-14.5); WBC 9.26 X 10*3/uL (4.50-10.00)
== END | disposition home or self-care (01) ==
LOC: LABWHC1 15:08
PROVIDERS: ATTEND Surgery
DX: C50.411 Malignant neoplasm of upper-outer quadrant of right female breast (principal); I89.0 Lymphedema, not elsewhere classified
CPT/HCPCS: 36415; 85025

== ENCOUNTER → 2021-04-08 | Outpatient (CLI) | payer MEDICARE, OTHER ==
[2021-04-08 14:56] VITALS: BP 119/78; PULSE 89; RESP 18; TEMP 100.1
--- NOTE | 2021-04-09 14:21 | P.PN ---
Progress Note - Text Progress Note Date: 04/08/21 Vanessa presented for results of CBC and axillary ultrasound prior to planned surgery next week. The patient was noted on examination to have a temperature of 100.1 as well as complaining of coughing. We recommended a COVID test be performed. Additionally upon review of the axillary ultrasound with Dr. Pulido it was felt that the proximity of the lymph nodes to the axillary vessels could not be well delineated. It was therefore recommended she undergo a computed tomography scan. Plan: Covid tests Computed tomography scan to better evaluate right axilla Follow up for results tomorrow
== END ==
LOC: WWCWWP 14:39
PROVIDERS: ATTEND Surgery
DX: Z01.818 Encounter for other preprocedural examination (principal); R05 Cough; Z88.6 Allergy status to analgesic agent; Z88.1 Allergy status to other antibiotic agents
CPT/HCPCS: 87635; C9803

== ENCOUNTER → 2021-04-08 | Outpatient (CLI) | payer MEDICARE, OTHER ==
--- NOTE | 2021-04-08 16:12 | CT ---
EXAMINATION TYPE: CT chest w con DATE OF EXAM: 04/08/2021 COMPARISON: 02/01/2017 HISTORY: Breast ca, scheduled for mastectomy next week. Fever CT DLP: 633 mGycm Automated exposure control for dose reduction was used. CONTRAST: CT scan of the chest is performed with IV Contrast, patient injected with 100 mL of Isovue 300. FINDINGS: LUNGS: Previously noted infiltrates have resolved. There are linear areas of atelectasis and parenchy mal scarring noted within the right upper lobe, left upper lobe and lung bases. No consolidation pres ent at this time. MEDIASTINUM: There are no greater than 1 cm hilar or mediastinal lymph nodes. Left hilar calcified gr anulomas. No pericardial effusion is seen. Thoracic aorta is of normal caliber. The heart is not en larged. UPPER ABDOMEN: The liver is partially imaged. There are vague hypoattenuating lesions within the live r. Metastatic disease is not excluded. Periaortic lymph nodes is suspected as well. OTHER: Bilateral axillary adenopathy measuring 2.1 cm on the left and up to 2.9 cm on the right. Rig ht breast mass in the right breast skin thickening compatible with the provided history. IMPRESSION: 1. Previously noted infiltrates have resolved in the interval with linear areas of parenchymal scar a telectasis present. 2. I cannot exclude metastatic disease to the liver. 3. Bilateral axillary adenopathy as well as a suggestion of the upper abdominal periaortic aortic shravan nopathy.
== END | disposition home or self-care (01) ==
LOC: RADCTMAIN 15:17
PROVIDERS: ATTEND Radiology Diagnostic Radiology
DX: C50.919 Malignant neoplasm of unspecified site of unspecified female breast (principal); J98.11 Atelectasis; R59.0 Localized enlarged lymph nodes
CPT/HCPCS: 71260; Q9967

== ENCOUNTER 2021-04-09 14:22 | Inpatient (IN) | payer MEDICARE, OTHER ==
[2021-04-09] MEDS ORDERED: SODIUM CHLORIDE 0.9% 1,000 ML IV STA ×2 (16:03→19:23)
[2021-04-09] MEDS ORDERED: ACETAMINOPHEN TAB 325 MG TAB PO STA (16:03)
[2021-04-09] MEDS ORDERED: IBUPROFEN 600 MG TAB PO STA (16:03)
[2021-04-09 16:33] LABS: Anisocytosis Slight; Basophils # (A) 0.1 k/uL (0-0.2); Basophils % (A) 1 %; Eosinophils # (A) 0.3 k/uL (0-0.7); Eosinophils % (A) 3 %; HCT 36.2 % (34.0-46.0); HGB 11.7 gm/dL (11.4-16.0); Lymphocytes # (A) 0.4 k/uL (1.0-4.8); Lymphocytes % (A) 4 %; MCH 29.8 pg (25.0-35.0); MCHC 32.2 g/dL (31.0-37.0); Mean Platelet Volume 7.8; Monocytes # (A) 0.5 k/uL (0-1.0); Monocytes % (A) 5 %; Neutrophils # (A) 8.6 k/uL (1.3-7.7); Neutrophils % (A) 87 %; Platelet Count 495 k/uL (150-450); RDW 16.1 % (11.5-15.5); WBC 9.9 k/uL (3.8-10.6)
[2021-04-09 16:40] LABS: Appearance,Urine Clear (Clear); Bacteria,Urine Rare /hpf; Bilirubin,Urine Negative (Negative); Blood,Urine Negative (Negative); Color,Urine Yellow; Glucose,Urine (UA) Negative (Negative); Ketones,Urine 1+ (Negative); Leukocyte Esterase,Urine Small (Negative); Mucus,Urine Occasional /hpf; Nitrite,Urine Negative (Negative); Protein,Urine 1+ (Negative); RBC,Urine 3 /hpf (0-5); Specific Gravity,Urine 1.027 (1.001-1.035); Squamous Epithelial Cell,Urine 3 /hpf (0-4); WBC,Urine 19 /hpf (0-5)
[2021-04-09 16:41] LABS: MCV 92.8 fL (80.0-100.0)
[2021-04-09 16:42] LABS: HCG,Qualitative Serum Not Detected
[2021-04-09 16:43] LABS: ALT 59 U/L (4-34); AST 77 U/L (14-36); African American GFR (CKD) >90 (>60 ml/min/1.73 sqM); Albumin 3.4 g/dL (3.5-5.0); Alkaline Phosphatase 263 U/L (38-126); Anion Gap 11 mmol/L; Blood Urea Nitrogen 10 mg/dL (7-17); Calcium 8.9 mg/dL (8.4-10.2); Carbon Dioxide 23 mmol/L (22-30); Chloride 101 mmol/L (98-107); Glucose 111 mg/dL (74-99); Magnesium 1.7 mg/dL (1.6-2.3); Non-African American GFR(CKD) >90 (>60 ml/min/1.73 sqM); Sodium 135 mmol/L (137-145); Total Bilirubin 0.6 mg/dL (0.2-1.3); Total Protein 6.1 g/dL (6.3-8.2)
--- NOTE | 2021-04-09 16:43 | XR ---
EXAMINATION TYPE: XR chest 2V DATE OF EXAM: 04/09/2021 COMPARISON: Chest x-ray February 11, 2021. CT chest yesterday. HISTORY: Cough and fever. History of breast cancer. TECHNIQUE: Frontal and lateral views of the chest are obtained. FINDINGS: Stable right internal jugular Mediport catheter. Stable lingular linear scarring. There is no no suspicious focal air space opacity, pleural effusion, or pneumothorax seen. The cardiac silhou ette size is stable and within normal limits. The osseous structures are intact. Cholecystectomy cl ips are redemonstrated. IMPRESSION: Chronic changes without new acute pulmonary process.
[2021-04-09] MEDS ORDERED: ONDANSETRON 4 MG/2 ML VIAL IVP STA (17:31)
[2021-04-09] MEDS ORDERED: diphenhydrAMINE 50 MG/ML 1 ML VIAL IVP STA (17:31)
[2021-04-09] MEDS ORDERED: FAMOTIDINE 20 MG/2 ML VIAL IV STA (17:31)
--- NOTE | 2021-04-09 19:01 | CT ---
EXAMINATION TYPE: CT abdomen pelvis w con DATE OF EXAM: 04/09/2021 COMPARISON: None HISTORY: Abdominal pain CT DLP: 1875.7 mGycm Automated exposure control for dose reduction was used. TECHNIQUE: Helical acquisition of images was performed from the lung bases through the pelvis. CONTRAST: Performed without Oral Contrast and with IV Contrast, patient injected with 100 mL of Isovue 370. FINDINGS: LUNG BASES: No significant abnormality is appreciated. LIVER/GB: Numerous tiny hypodensities of the liver are indeterminate. Noncirrhotic morphology. The he patic and portal veins are patent. Cholecystectomy. Mild dilatation of the common duct is likely rela conchita to cholecystectomy state. PANCREAS: No significant abnormality is seen. SPLEEN: Calcified granuloma. Splenule. ADRENALS: No significant abnormality is seen. KIDNEYS: Tiny hypodensities of the bilateral kidneys are too small to characterize. A 3 cm hypodense lesion of the left inferior pole is favored to represent a hemorrhagic cyst. There are nonspecific 3m m calcifications in the left lower pole. No hydronephrosis of either kidney. There is mild asymmetric perinephric fat stranding on the left FREE AIR: No free air is visualized. RETROPERITONEAL ADENOPATHY: Numerous prominent and enlarged para-aortic lymph nodes left greater tiarra n right measuring up to 1.8 cm in short axis. A few prominent but nonenlarged peripancreatic lymph no tita are noted. REPRODUCTIVE ORGANS: No significant abnormality is seen URINARY BLADDER: Distended without wall thickening. PELVIC ADENOPATHY: None visualized. OSSEOUS STRUCTURES: No significant abnormality is seen. BOWEL: No significant abnormality is seen. OTHER: Bilateral ovarian calcifications. IMPRESSION: 1. THERE ARE NUMEROUS ENLARGED RETROPERITONEAL LYMPH NODES ARE INDETERMINATE BUT COULD RELATE TO A S YSTEMIC LYMPHOPROLIFERATIVE PROCESS OR THE PATIENT'S PRIMARY MALIGNANCY. 2. THERE ARE NUMEROUS HYPODENSE LESIONS IN THE LIVER THAT APPEAR NEW FROM THE PRIOR PET/CT AND ARE C ONCERNING. RECOMMEND PROTOCOL MRI/CT FOR FURTHER CHARACTERIZATION. 3. Numerous hypodense lesions of the bilateral kidneys are indeterminate. Correlate with renal fer col CT.
--- NOTE | 2021-04-09 19:19 | CT ---
EXAMINATION TYPE: CT chest angio for PE DATE OF EXAM: 04/09/2021 COMPARISON: CT chest 02/01/2021 HISTORY: Fever, dyspnea. Concern for PE. CT DLP: 1875.7 mGycm Automated exposure control for dose reduction was used. CONTRAST: CT Chest for pulmonary embolism performed with with IV Contrast, patient injected with intravenous co ntrast. FINDINGS: LUNGS: The previously seen nodular subpleural density at the lateral aspect of the left lower lobe cu rrently measures up to 1.7 cm maximally previously, 2 cm. Previously seen reticular and groundglass o pacity, left greater than right and previously seen left hilar lymph node conglomeration is less cons picuous however the calcified left hilar lymph nodes are still noted. 20MEDIASTINUM: There is subopti mal enhancement of the pulmonary artery and its branches, there is no CT evidence for central pulmona ry embolism. Assessment of the segmental and subsegmental vessels.1 There are no greater than 1 cm hi lar or mediastinal lymph nodes. Some prominent but nonenlarged AP window lymph nodes. No pericardia l effusion is seen. OTHER: 1.7 cm nodule with a calcification in the left breast. Right chest wall port with catheter th e SVC. IMPRESSION: 1. No central pulmonary embolism. Limited assessment of the segmental and subsegmental vessels due t o poor opacification. 2. Interval improvement in the left-sided pulmonary infiltrates and left perihilar adenopathy.
[2021-04-09] MEDS ORDERED: LEVOFLOXACIN 500MG-D5W PMX 500 MG in DEXTROSE/WATER 1 100ML.BAG IVPB SCH (19:30)
[2021-04-09] MEDS ORDERED: NALOXONE 0.4 MG/ML 1 ML VIAL IV PRN (20:08)
[2021-04-09] MEDS ORDERED: ACETAMINOPHEN TAB 325 MG TAB PO PRN (20:08)
[2021-04-09] MEDS ORDERED: HYDROcodone/APAP 7.5-325MG 1 EACH TAB PO PRN (20:10)
[2021-04-09] MEDS: SODIUM CHLORIDE 0.9% 1,000 ML IV SCH (20:27)
[2021-04-09] MEDS: PROPRANOLOL 40 MG TAB PO SCH (23:28)
[2021-04-09] MEDS: DULoxetine HCL 60 MG CAPSULE.DR PO SCH (23:28)
[2021-04-09] MEDS: ARIPiprazole 2 MG TAB PO SCH (23:28)
[2021-04-09] MEDS: traZODone HCL 50 MG TAB PO SCH (23:29)
--- NOTE | 2021-04-10 00:53 | ED ---
General Adult HPI - General Chief complaint: Fever Stated complaint: Fever Time Seen by Provider: 04/09/21 15:35 Source: patient, family, RN notes reviewed, old records reviewed Limitations: no limitations - History of Present Illness Initial comments: I evaluated the patient when she was placed in a room.Patient is a 45-year-old female with past medical history remarkable for breast cancer currently status post chemo therapy last dose on March [address] concerning for possible liver metastasis presents emergency Department complaining of a 2 day history of fevers, nonspecific abdominal discomfort primarily midepigastric region, as well as nausea and vomiting. She is also having some abdominal pain in her upper back at the site of the kidneys. Denies any dysuria or hematuria. Denies any vaginal discharge or bleeding. Denies any chest pain, shortness br eath but does endorse mild cough. She does endorse fevers above 100F at home and she is febrile here in the department. She denies any sick contacts. She did receive her Covid 19 vaccination. She is not acute complaint at this time. She started PCP a few days ago, speaking with him as well as her oncology team, they recommended that she come to the emergency department for further evaluation. She denies any headaches, neck pain, lightheadedness, new onset neurological deficits. - Related Data Home Medications Medication Instructions Recorded Confirmed DULoxetine HCL [Cymbalta] 120 mg PO HS 03/30/20 04/09/21 Levothyroxine Sodium 25 mcg PO DAILY 03/30/20 04/09/21 traZODone HCL 150 mg PO HS 03/30/20 04/09/21 Cyclobenzaprine [Flexeril] 5 mg PO HS PRN 07/01/20 04/09/21 ARIPiprazole [Abilify] 2 mg PO HS 09/16/20 04/09/21 Propranolol [Inderal] 40 mg PO BID 09/16/20 04/09/21 HYDROcodone/APAP 7.5-325MG [[place] 1 tab PO Q12H PRN 02/08/21 04/09/21 7.5-325] Ondansetron Odt [Zofran ODT] 4 mg PO Q6H PRN 02/08/21 04/09/21 Allergies Allergy/AdvReac Type Severity Reaction Status Date / Time Cephalosporins Allergy Rash/Hives/throat Verified 04/09/21 18:56 swelling topiramate [From Topamax] AdvReac Severe mood swings Verified 04/09/21 18:56 Review of Systems ROS Statement: Those systems with pertinent positive or pertinent negative responses have been documented in the HPI. Review of Systems: CONST: Endorses fever EYES: Denies blurry vision ENT: Denies nasal congestion C/V: Denies Chest pain RESP: Endorses cough GI: Endorses abdominal pain : Denies dysuria SKIN: Denies rash. MSK: Denies joint pain. NEURO: Denies headache ROS Other: All systems not noted in ROS Statement are negative. Past Medical History Past Medical History: Cancer, Eye Disorder, GERD/Reflux, Neurologic Disorder, Thyroid Disorder Additional Past Medical History / Comment(s): Migraines; leaky mitral valve and tachycardia; CHIARI MALFORMATION; palpitations; ulcer in ; hx hiatal hernia; daily headaches; tinnitus timo ears; acute angular glaucoma-corrected with surgery; 10/30/20 right breast and axillary lymph node biopsy with invasive ductal carcinoma WITH CHEMO History of Any Multi-Drug Resistant Organisms: None Reported Past Surgical History: Breast Surgery, Section, Cholecystectomy, Hyster ectomy, Orthopedic Surgery Additional Past Surgical History / Comment(s): left knee arthroscopy; rt breast lumpectomy benign; DECOMPRESSION SURGERY SECONDARY TO CHIARI MALFORMATION; C/S x3; vaginal cyst removed; timo eye surgery for glaucoma; 10/30/20 right breast and axillary lymph node biopsy with invasive ductal carcinoma; PORT A CATH Past Anesthesia/Blood Transfusion Reactions: Family History of Problems w/ Anesthesia Additional Past Anesthesia/Blood Transfusion Reaction / Comment(s): Mother woke during surgery. Past Psychological History: Anxiety, Depression Smoking Status: Former smoker Past Alcohol Use History: Occasional Additional Past Alcohol Use History / Comment(s): Quit smoking Mar 2009, smoked for 12 yrs on and off. Past Drug Use History: Marijuana Additional Drug Use History / Comment(s): Occasional edible Marijuana use for pain. Aware no use 24 hrs prior to procedure. - Past Family History Mother Family Medical History: Cancer, Deep Vein Thrombosis (DVT), Pulmonary Embolus Additional Family Medical History / Comment(s): Breast Cancer left breast intraductal carcinoma in 1998 General Exam - General Exam Comments Initial Comments: General: Appears fatigued and in mild distress secondary to her current complaints. HEAD: Normal with no signs of head trauma. EYES: PERRLA, EOMI, conjunctiva normal, no discharge. ENT: Hearing grossly intact, normal oropharynx. Mucous membranes are somewhat dry. RESPIRATORY: Clear breath sounds bilaterally. No wheezes, rales, or rhonchi. C/V: Patient is tachycardic with a regular rhythm. S1 and S2 auscultated. No peripheral edema. Peripheral pulses are 2+ intact throughout. ABD: Abdomen soft, nondistended. Patient is tender to palpation primarily over the bilateral CVA. She had some mild epigastric tenderness as well. No peritoneal signs. No rebound tenderness. No guarding. EXT: Normal range of motion, no obvious deformity SKIN: No rashes or lesions observed on exposed skin. NEURO: Alert and Oriented 4. No focal sensory strength deficits. Limitations: no limitations Course Vital Signs 04/09/21 04/09/21 14:46 17:30 Temperature 99.6 F 97.7 F Pulse Rate 112 H 87 Respiratory 20 18 Rate Blood Pressure 111/78 118/79 O2 Sat by Pulse 98 95 Oximetry Medical Decision Making - Medical Decision Making Based on the patient's presentation and physical exam, patient is immunocompromised individual presenting with a fever of unknown etiology with complaints primarily of some CVA tenderness as well as nausea, vomiting and cough. We will obtain a broad workup including blood cultures, lactate, urinalysis, Covid and flu swab. Chest x-ray will also be obtained. She was in agreement this plan. She'll be dosed antipyretics and pain medications. She will be given a fluid bolus that she does appear dehydrated. She'll be given Zofran for her symptoms as well. Laboratory studies were remarkable for the absence of neutropenia, as her neutrophil number is 8.6 and WBC is 9.9. Patient has mildly elevated LFTs. Urinalysis revealed what is suspicious for urinary tract infection. Covid influenza negative. Chest x-ray shows no acute cardiopulmonary process. I spoke with the patient regarding her findings and I would like to speak with the patient's oncologist as well. She was in agreement this plan. I spoke with the patient's oncology team school bus monitor, Dr. Bowden would like to obtain a chest CTA to rule out the possibility of pulmonary embolism as well as a CT of the abdomen and pelvis. I spoke with the patient she was in agreement this plan. Patient's chest CT revealed no signs of acute PE. Patient's CT abdomen and pelvis revealed numerous lymph nodes as well as masses in the liver that could be metastasis of her primary breast cancer malignancy. There are also numerous hypodense lesions in the bilateral kidneys that are indeterminate. Reevaluation come patient still feeling nauseous. She does not tolerate by mouth intake. Fever is improved, however I do believe she is dehydrated and due to her intractable nausea and vomiting or requested that we admitted to the hospital. She was in agreement this plan. Spoke with the patient's PCP, Dr. Oconnell who was in agreement this plan. Patient will be started on Rocephin for a UTI and given further IV fluid hydration. Patient was therefore admitted in serous condition. - Lab Data Result diagrams: 04/09/21 16:13 04/09/21 16:13 Lab Results 04/09/21 04/09/21 04/09/21 Range/Units 16:13 16:13 16:13 WBC 9.9 (3.8-10.6) k/uL RBC 3.90 (3.80-5.40) m/uL Hgb 11.7 (11.4-16.0) gm/dL Hct 36.2 (34.0-46.0) % MCV 92.8 D (80.0-100.0) fL MCH 29.8 (25.0-35.0) pg MCHC 32.2 (31.0-37.0) g/dL RDW 16.1 H (11.5-15.5) % Plt Count 495 H (150-450) k/uL MPV 7.8 Neutrophils % 87 % Lymphocytes % 4 % Monocytes % 5 % Eosinophils % 3 % Basophils % 1 % Neutrophils # 8.6 H (1.3-7.7) k/uL Lymphocytes # 0.4 L (1.0-4.8) k/uL Monocytes # 0.5 (0-1.0) k/uL Eosinophils # 0.3 (0-0.7) k/uL Basophils # 0.1 (0-0.2) k/uL Anisocytosis Slight Sodium 135 L (137-145) mmol/L Potassium 4.0 (3.5-5.1) mmol/L Chloride 101 (98-107) mmol/L Carbon Dioxide 23 (22-30) mmol/L Anion Gap 11 mmol/L BUN 10 (7-17) mg/dL Creatinine 0.50 L (0.52-1.04) mg/dL Est GFR (CKD-EPI)AfAm >90 (>60 ml/min/1.73 sqM) Est GFR (CKD-EPI)NonAf >90 (>60 ml/min/1.73 sqM) Glucose 111 H (74-99) mg/dL Plasma Lactic Acid Gm (0.7-2.0) mmol/L Calcium 8.9 (8.4-10.2) mg/dL Magnesium 1.7 (1.6-2.3) mg/dL Total Bilirubin 0.6 (0.2-1.3) mg/dL AST 77 H (14-36) U/L ALT 59 H (4-34) U/L Alkaline Phosphatase 263 H (38-126) U/L Total Protein 6.1 L (6.3-8.2) g/dL Albumin 3.4 L (3.5-5.0) g/dL HCG, Qual Not Detected Urine Color Yellow Urine Appearance Clear (Clear) Urine pH 6.0 (5.0-8.0) Ur Specific [place] 1.027 (1.001-1.035) Urine Protein 1+ H (Negative) Urine Glucose (UA) Negative (Negative) Urine Ketones 1+ H (Negative) Urine Blood Negative (Negative) Urine Nitrite Negative (Negative) Urine Bilirubin Negative (Negative) Urine Urobilinogen 2.0 (<2.0) mg/dL Ur Leukocyte Esterase Small H (Negative) Urine RBC 3 (0-5) /hpf Urine WBC 19 H (0-5) /hpf Ur Squamous Epith Cells 3 (0-4) /hpf Urine Bacteria Rare H (None) /hpf Urine Mucus Occasional H (None) /hpf Influenza Type A (PCR) (Not Detectd) Influenza Type B (PCR) (Not Detectd) RSV (PCR) (Not Detectd) SARS-CoV-2 (PCR) (Not Detectd) 04/09/21 04/09/21 Range/Units 16:13 16:13 WBC (3.8-10.6) k/uL RBC (3.80-5.40) m/uL Hgb (11.4-16.0) gm/dL Hct (34.0-46.0) % MCV (80.0-100.0) fL MCH (25.0-35.0) pg MCHC (31.0-37.0) g/dL RDW (11.5-15.5) % Plt Count (150-450) k/uL MPV Neutrophils % % Lymphocytes % % Monocytes % % Eosinophils % % Basophils % % Neutrophils # (1.3-7.7) k/uL Lymphocytes # (1.0-4.8) k/uL Monocytes # (0-1.0) k/uL Eosinophils # (0-0.7) k/uL Basophils # (0-0.2) k/uL Anisocytosis Sodium (137-145) mmol/L Potassium (3.5-5.1) mmol/L Chloride (98-107) mmol/L Carbon Dioxide (22-30) mmol/L Anion Gap mmol/L BUN (7-17) mg/dL Creatinine (0.52-1.04) mg/dL Est GFR (CKD-EPI)AfAm (>60 ml/min/1.73 sqM) Est GFR (CKD-EPI)NonAf (>60 ml/min/1.73 sqM) Glucose (74-99) mg/dL Plasma Lactic Acid Gm 1.5 (0.7-2.0) mmol/L Calcium (8.4-10.2) mg/dL Magnesium (1.6-2.3) mg/dL Total Bilirubin (0.2-1.3) mg/dL AST (14-36) U/L ALT (4-34) U/L Alkaline Phosphatase (38-126) U/L Total Protein (6.3-8.2) g/dL Albumin (3.5-5.0) g/dL HCG, Qual Urine Color Urine Appearance (Clear) Urine pH (5.0-8.0) Ur Specific [place] (1.001-1.035) Urine Protein (Negative) Urine Glucose (UA) (Negative) Urine Ketones (Negative) Urine Blood (Negative) Urine Nitrite (Negative) Urine Bilirubin (Negative) Urine Urobilinogen (<2.0) mg/dL Ur Leukocyte Esterase (Negative) Urine RBC (0-5) /hpf Urine WBC (0-5) /hpf Ur Squamous Epith Cells (0-4) /hpf Urine Bacteria (None) /hpf Urine Mucus (None) /hpf Influenza Type A (PCR) Not Detected (Not Detectd) Influenza Type B (PCR) Not Detected (Not Detectd) RSV (PCR) Not Detected (Not Detectd) SARS-CoV-2 (PCR) Not Detected (Not Detectd) Disposition Clinical Impression: Fever, History of chemotherapy, Intractable nausea and vomiting, UTI (urinary tract infection), Dehydration, Liver mass Disposition: ADMITTED IP TO THIS HOSP Condition: Serious
[2021-04-10] MEDS: ONDANSETRON 4 MG/2 ML VIAL IVP PRN ×3 (03:31→21:05)
[2021-04-10] MEDS: LEVOTHYROXINE 25 MCG TAB PO SCH (06:21)
[2021-04-10] MEDS: PROPRANOLOL 40 MG TAB PO SCH ×2 (08:14→21:05)
[2021-04-10] MEDS: SODIUM CHLORIDE 0.9% 1,000 ML IV SCH ×2 (08:15→15:17)
[2021-04-10] MEDS: IBUPROFEN 600 MG TAB PO SCH ×2 (09:44→21:04)
--- NOTE | 2021-04-10 10:01 | XR ---
EXAMINATION TYPE: XR lumbar spine 2 or 3V DATE OF EXAM: 04/10/2021 CLINICAL HISTORY: pain TECHNIQUE: Three views of the lumbar spine are submitted. COMPARISON: None. FINDINGS: There are 5 lumbar type vertebral bodies identified. The lumbar spine shows satisfactory alignment w ithout evidence of acute fracture or dislocation. Vertebral body heights are within normal limits. Disc spaces are within normal limits. The overlying soft tissue appears unremarkable. IMPRESSION: No acute fracture or dislocation is seen in the lumbar spine. ICD 10 NO FRACTURE, INITIAL EVALUATION
[2021-04-10] MEDS: HYDROcodone/APAP 10-325MG 1 EACH TAB PO PRN ×2 (10:56→18:43)
--- NOTE | 2021-04-10 12:04 | P.HPIM ---
History of Present Illness H&P Date: 04/10/21 Chief Complaint: UTI HISTORY OF PRESENT ILLNESS This is a 45-year-old male patient of Dr. Oconnell newly established in the office in December. Patient has past medical history of malignant neoplasm of the right breast with right axillary lymphadenopathy and metastatic disease to the liver hypothyroidism, generalized anxiety disorder, migraine headache, recurrent depression, chronic reflux esophagitis, Chiari malformation, spondylosis of the lumbar spine. Patient follows with Dr. Bowden and Swathi [facility] regarding breast cancer treatment, and was recently seen in my office a few days ago for preoperative clearance that is scheduled with Dr. Wood on 04/13/2021 for right mastectomy, at that time patient did developed to have a significant sw elling of the right upper extremity was significant lymphadenopathy in the right axillary area according to the patient she underwent ultrasound of the right upper extremity that was negative for DVT, and her surgeon and oncologist are both aware of it, patient presented to the emergency room and at [facility] yesterday with increased abdominal pain associated with nausea and vomiting without evidence of any dysuria or hematuria, her laboratory evaluation were totally normal, patient did have a recent computed tomography scan that did show evidence of metastatic liver disease with significant lymphadenopathy in the right axillary area, the emergency room physician Dr. Robledo had spoken with Dr. Bowden from hematology oncology and he was recommended for the patient to be admitted to the hospital for evaluation and treatment. As far as for UTI patient does appear to have 19 WBC in the urine the white count were normal the rest of the laboratory evaluation were normal subsequent she was admitted to the hospital because of intractable nausea and vomiting not able to keep anything down and because for abdominal pain, she was started on IV antibiotic in the form of Levaquin 500 mg IV piggyback every 24 hours, urine culture blood culture obtained she was told her on IV fluid in the form of normal saline at 75 mL an hour along with Zofran 4 mg IV push every 6 hours as needed. Patient underwent a chest x-ray that showed evidence of acute of normalities, CTA of the chest was negative for pulmonary embolus which showed better aeration of the left lower lobe pneumonia and the perihilar lymphadenopathy, this was followed by computed tomography scan of the abdomen and pelvis that was positive for multiple possible metastatic liver disease and bilateral renal lesions of undetermined cause. REVIEW OF SYSTEMS Constitutional: No fever, no chills, no night sweats. No weight change. No weakness, fatigue or lethargy. No daytime sleepiness. EENT: No headache. No blurred vision or double vision, no loss of vision. No loss of Hearing, no ringing in the ears, no dizziness. No nasal drainage or congestion. No epistaxis. No sore throat. Lungs: Reports shortness of breath, reports cough, no sputum production. No wheezing. Cardiovascular: Reports heavy chest discomfort, no lower extremity edema. No palpitations. No paroxysmal nocturnal dyspnea. No orthopnea. No lightheadedness or dizziness. No syncopal episodes. Abdominal: No abdominal pain. No nausea, vomiting. No diarrhea. No constipation. No bloody or tarry stools.. No loss of appetite. Genitourinary: No dysuria, increased frequency, urgency. No urinary retention. Musculoskeletal: No myalgias. No muscle weakness, no gait dysfunction, no frequent falls. No back pain. No neck pain. Integumentary: No wounds, no lesions. No rash or pruritus. No unusual bruising. No change in hair or nails. Neurologic: No aphasia. No facial droop. No change in mentation. No head injury. No headache. No paralysis. No paresthesia. Psychiatric: No depression. No anxiety. No mood swings. Endocrine: No abnormal blood sugars. No weight change. MEDICAL HISTORY Breast cancer right, invasive ductal carcinoma Hypothyroidism Chiari malformation Spondylosis of the lumbar spine Gastroesophageal reflux disease and esophagitis Generalized anxiety disorder Recurrent depression Migraine headache Acute angle glaucoma SURGICAL HISTORY Right breast and axillary lymph node biopsy Surgery for Chiari malformation Right breast lumpectomy, benign Bilateral eye surgery for glaucoma Left knee arthroplasty 3 Vaginal cyst removal Hysterectomy Cholecystectomy SOCIAL HISTORY Patient was a smoker of a half a pack per day and quit in 2008. No alcohol use. Patient uses marijuana gummies. FAMILY HISTORY Father is alive at age 69 with history of coronary artery disease status post three-vessel CABG at the age of 67, history of hypertension. Mother is alive at age 67 with history of diabetes, 4 vessel CABG at the age of 62. Patient has 1 brother alive at age 41 with history of hypertension and prediabetes. Patient has 2 sons with no major medical problems. Patient has one daughter with no major medical problems. PHYSICAL EXAMINATION Gen: This is a 45-year-old obese female. She is resting in bed appears to be comfortable and in no acute distress. HEENT: Head is atraumatic, normocephalic. Pupils equal, round. Sclerae is anicteric. Scalp alopecia. NECK: Supple. No JVD. No lymphadenopathy. No thyromegaly. LUNGS: Slightly diminished, no wheezes. No intercostal retractions. HEART: Regular rate and rhythm. No murmur. Mediport to the right upper anterior chest wall. ABDOMEN: Soft. Bowel sounds are present. No masses. No tenderness. EXTREMITIES: No pedal edema. No calf tenderness. NEUROLOGICAL: Patient is awake, alert and oriented x3. Cranial nerves 2 through 12 are grossly intact. ASSESSMENT AND PLAN 1. Abdominal pain with intermittent nausea and vomiting likely related to metastatic liver disease. Continue IV fluid resuscitation, continue with Zofran 4 mg IV push every 6 hours, hematology oncology consultation. 2. Acute cystitis without evidence of sepsis. Continue Levaquin 500 mg IV piggyback every 24 hours urine cultures and blood cultures were obtained. 3. Right-sided breast cancer with possible metastatic disease under the care of Dr. Bowden. Consult with oncology. 4. Anemia secondary to chemotherapy. 5 Hypothyroidism. Continue levothyroxine 25 g daily. 6 Gastroesophageal reflux disease. Continue Protonix 40 mg daily oral. 7 Generalized anxiety disorder and recurrent depression. Continue Abilify 2 mg at bedtime, Cymbalta 120 mg at bedtime, Ativan 0.5 mg 3 times daily as needed, trazodone 150 mg at bedtime. 8 History of migraine headaches. Continue Inderal 40 mg twice daily. 9 Chiari malformation, stable. 10. Spondylosis of the lumbar spine, stable. 11. Acute angle glaucoma, stable. 12. DVT prophylaxis. Heparin 5000 units subcutaneously every 8 hours. 13. GI prophylaxis. Continue Protonix 40 mg orally once every day. 14. Admit to inpatient. Estimated length of stay 2 midnights. 15. Full code. Past Medical History Past Medical History: Cancer, Eye Disorder, GERD/Reflux, Neurologic Disorder, Thyroid Disorder Additional Past Medical History / Comment(s): Migraines; leaky mitral valve and tachycardia; CHIARI MALFORMATION; palpitations; ulcer in ; hx hiatal her emir; daily headaches; tinnitus timo ears; acute angular glaucoma-corrected with surgery; 10/30/20 right breast and axillary lymph node biopsy with invasive ductal carcinoma WITH CHEMO History of Any Multi-Drug Resistant Organisms: None Reported Past Surgical History: Breast Surgery, Section, Cholecystectomy, Hysterectomy, Orthopedic Surgery Additional Past Surgical History / Comment(s): left knee arthroscopy; rt breast lumpectomy benign; DECOMPRESSION SURGERY SECONDARY TO CHIARI MALFORMATION; C/S x3; vaginal cyst removed; timo eye surgery for glaucoma; 10/30/20 right breast and axillary lymph node biopsy with invasive ductal carcinoma; PORT A CATH Past Anesthesia/Blood Transfusion Reactions: Family History of Problems w/ Anesthesia Additional Past Anesthesia/Blood Transfusion Reaction / Comment(s): Mother woke during surgery. Past Psychological History: Anxiety, Depression Smoking Status: Former smoker Past Alcohol Use History: Occasional Additional Past Alcohol Use History / Comment(s): Quit smoking Mar 2009, smoked for 12 yrs on and off. Past Drug Use History: Marijuana Additional Drug Use History / Comment(s): Occasional edible Marijuana use for pain. Aware no use 24 hrs prior to procedure. - Past Family History Mother Family Medical History: Cancer, Deep Vein Thrombosis (DVT), Pulmonary Embolus Additional Family Medical History / Comment(s): Breast Cancer left breast intraductal carcinoma in 1998 Medications and Allergies Home Medications Medication Instructions Recorded Confirmed Type DULoxetine HCL [Cymbalta] 120 mg PO HS 03/30/20 04/09/21 History Levothyroxine Sodium 25 mcg PO DAILY 03/30/20 04/09/21 History traZODone HCL 150 mg PO HS 03/30/20 04/09/21 History Cyclobenzaprine [Flexeril] 5 mg PO HS PRN 07/01/20 04/09/21 History ARIPiprazole [Abilify] 2 mg PO HS 09/16/20 04/09/21 History Propranolol [Inderal] 40 mg PO BID 09/16/20 04/09/21 History HYDROcodone/APAP 7.5-325MG [[place] 1 tab PO Q12H PRN 02/08/21 04/09/21 History 7.5-325] Ondansetron Odt [Zofran ODT] 4 mg PO Q6H PRN 02/08/21 04/09/21 History Allergies Allergy/AdvReac Type Severity Reaction Status Date / Time Cephalosporins Allergy Rash/Hives/throat Verified 04/09/21 18:56 swelling topiramate [From Topamax] AdvReac Severe mood swings Verified 04/09/21 18:56 Physical Exam Vitals: Vital Signs Temp Pulse Pulse Resp BP BP Pulse Ox 04/10/21 08:00 80 20 04/10/21 04:35 98.2 F 80 20 102/71 96 04/09/21 21:15 98.3 F 81 18 102/70 96 04/09/21 17:30 97.7 F 87 18 118/79 95 04/09/21 14:46 99.6 F 112 H 20 111/78 98 Intake and Output 04/09/21 04/10/21 04/10/21 22:59 06:59 14:59 Intake Total 100 Balance 100 Intake: Oral 100 Other: # Voids 1 Weight 92.079 kg Results CBC & Chem 7: 04/09/21 16:13 04/09/21 16:13 Labs: Abnormal Lab Results - Last 24 Hours (Table) 04/09/21 04/09/21 04/09/21 Range/Units 16:13 16:13 16:13 RDW 16.1 H (11.5-15.5) % Plt Count 495 H (150-450) k/uL Neutrophils # 8.6 H (1.3-7.7) k/uL Lymphocytes # 0.4 L (1.0-4.8) k/uL Sodium 135 L (137-145) mmol/L Creatinine 0.50 L (0.52-1.04) mg/dL Glucose 111 H (74-99) mg/dL AST 77 H (14-36) U/L ALT 59 H (4-34) U/L Alkaline Phosphatase 263 H (38-126) U/L Total Protein 6.1 L (6.3-8.2) g/dL Albumin 3.4 L (3.5-5.0) g/dL Urine Protein 1+ H (Negative) Urine Ketones 1+ H (Negative) Ur Leukocyte Esterase Small H (Negative) Urine WBC 19 H (0-5) /hpf Urine Bacteria Rare H (None) /hpf Urine Mucus Occasional H (None) /hpf Microbiology - Last 24 Hours (Table) 04/09/21 16:13 Urine Culture - Preliminary Urine,Voided Thrombosis Risk Factor Assmnt - Choose All That Apply Each Factor Represents 1 point: Age 41-60 years, Obesity (BMI >25) Each Risk Factor Represents 2 Points: Malignancy Thrombosis Risk Factor Assessment Total Risk Factor Score: 4 Thrombosis Risk Factor Assessment Level: Moderate Risk
[2021-04-10] MEDS ORDERED: SODIUM CHLORIDE 0.9% 500 ML 500 ML IV ONE (13:27)
[2021-04-10] MEDS: HEPARIN SODIUM,PORCINE/PF 5,000 UNIT/0.5 ML SYRINGE SQ SCH (15:16)
--- NOTE | 2021-04-10 20:07 | P.CONS ---
History of Present Illness - Reason for Consult Consult date: 04/10/21 Fever, RTI, Back pain, breast cancer - History of Present Illness The pt is a 45 yr old WF, who is followed by Dr Hernandez in the office. Her oncology history is as follows: She presented with a palpable UOQ R breast mass in May 2020, had diagnostic mammogram on 10/21/2020 revealing suspicious 2.8 cm UOQ R Breast mass, 7.2 cm from nipple, US confirmed lesion plus R axillary lymphadenopathy. The patient had US-Guided Bx of both mass and R axillary LN revealing Grade II invasive ductal carcinoma ER/[place] 10%/0% [id number] +1(Negative). Vanessa reported using Estrogen-based BCP X 4 years, had TSH and unilateral SO. Mother, 2 maternal aunts and 2 maternal cousins had breast ca in mid 40s. She has arnold-chiari disease, follows with Neurologist in [place] 12/15/20: Feels well, tolerating AC well (Mild nausea & fatigue), developed complete alopecia as expected. 01/12/21: Feels well, completed AC chemotherapy. 02.01.21: Presents for acute visit. Shortness of breath, pain with inspiration, tachycardia, low grade fever, RLE edema and pain. 02/24/21-patient seen today as an acute visit. She has complaints of pain in her right axilla, at the site with a lymph node was biopsied, she is also feeling some swelling next to her known right breast tumor, this is been going on for just a day or 2, no fevers, unusual drainage, her breast is not hot to the touch. She has no other symptoms to report. She is getting chemotherapy today. 03/17/21: Feels well, C/O bone aches 2nd to Taxol/Neulasta. As above. She completed 4 cycles of DD Taxol on 03/24/21 The patient was scheduled for surgery with mastectomy and lymph node dissection with Dr. Steven Montalvo on 04/13/21. The patient states that she developed upper airway congestion, with productive cough, and chills, 04/07/21. She had a CT of the chest, as well as Covid testing on 04/08/21. Covid testing was negative. CT chest showed resolution of previously noted infiltrates and no acute process suggestive of infection. There was however concern for upper abdominal adenopat hy and possible early metastatic disease to the liver. The patient was evaluated in the office again by Dr. Steven Montalvo on 04/09/21. She now had a fever of 101.5. Her respiratory complaints had actually improved, but she was having increased back painIn the mid to lower back, much more intense than her usual baseline. The case was discussed with her, and it was recommended that the patient proceed to the ER. Case was then discussed with the ER physician, and the patient admitted further management. Based on our discussion, Patient had a CTA of the chest that was negative for PE. She had a CT of the abdomen and pelvis, raising the possibility of early metastatic disease to the liver, as well as new retroperitoneal adenopathy. UA showed small leukocyte esterase and 13 wbc's. Labs showed Hemoglobin of 11.7, with normal WBC. Chem panel revealed AST 77, ALT 59, and alkaline phosphatase 263 Dr. Steven Arango, on her exam, had also noted small, new skin lesions in the right axilla, and under the right breast Review of Systems Constitutional: Reports chronic pain, Reports fatigue, Reports fever, Reports weakness Eyes: denies blurred vision, denies pain Ears: deny: decreased hearing, ear discharge, earache, tinnitus Ears, nose, mouth and throat: Denies headache, Denies sore throat Breasts: right: as per HPI Cardiovascular: Reports shortness of breath Respiratory: Reports congestion, Reports cough with sputum Gastrointestinal: Denies abdominal pain, Denies diarrhea, Denies nausea, Denies vomiting Genitourinary: Denies dysuria, Denies hematuria Menstruation: Reports as per HPI Musculoskeletal: Reports as per HPI Integumentary: Reports lesions Neurological: Reports weakness Psychiatric: Reports anxiety Endocrine: Reports fatigue Hematologic/Lymphatic: Reports as per HPI, Reports lymphadenopathy Past Medical History Past Medical History: Cancer, Eye Disorder, GERD/Reflux, Neurologic Disorder, Thyroid Disorder Additional Past Medical History / Comment(s): Migraines; leaky mitral valve and tachycardia; CHIARI MALFORMATION; palpitations; ulcer in ; hx hiatal hernia; daily headaches; tinnitus timo ears; acute angular glaucoma-corrected with surgery; 10/30/20 right breast and axillary lymph node biopsy with invasive ductal carcinoma WITH CHEMO History of Any Multi-Drug Resistant Organisms: None Reported Past Surgical History: Breast Surgery, Section, Cholecystectomy, Hysterectomy, Orthopedic Surgery Additional Past Surgical History / Comment(s): left knee arthroscopy; rt breast lumpectomy benign; DECOMPRESSION SURGERY SECONDARY TO CHIARI MALFORMATION; C/S x3; vaginal cyst removed; timo eye surgery for glaucoma; 10/30/20 right breast and axillary lymph node biopsy with invasive ductal carcinoma; PORT A CATH Past Anesthesia/Blood Transfusion Reactions: Family History of Problems w/ Anesthesia Additional Past Anesthesia/Blood Transfusion Reaction / Comm: Mother woke during surgery. Past Psychological History: Anxiety, Depression Smoking Status: Former smoker Past Alcohol Use History: Occasional Additional Past Alcohol Use History / Comment(s): Quit smoking Mar 2009, smoked for 12 yrs on and off. Past Drug Use History: Marijuana Additional Drug Use History / Comment(s): Occasional edible Marijuana use for pain. Aware no use 24 hrs prior to procedure. - Past Family History Mother Family Medical History: Cancer, Deep Vein Thrombosis (DVT), Pulmonary Embolus Additional Family Medical History / Comment(s): Breast Cancer left breast intraductal carcinoma in 1998 Medications and Allergies Home Medications Medication Instructions Recorded Confirmed Type DULoxetine HCL [Cymbalta] 120 mg PO HS 03/30/20 04/09/21 History Levothyroxine Sodium 25 mcg PO DAILY 03/30/20 04/09/21 History traZODone HCL 150 mg PO HS 03/30/20 04/09/21 History Cyclobenzaprine [Flexeril] 5 mg PO HS PRN 07/01/20 04/09/21 History ARIPiprazole [Abilify] 2 mg PO HS 09/16/20 04/09/21 History Propranolol [Inderal] 40 mg PO BID 09/16/20 04/09/21 History HYDROcodone/APAP 7.5-325MG [[place] 1 tab PO Q12H PRN 02/08/21 04/09/21 History 7.5-325] Ondansetron Odt [Zofran ODT] 4 mg PO Q6H PRN 02/08/21 04/09/21 History Allergies Allergy/AdvReac Type Severity Reaction Status Date / Time Cephalosporins Allergy Rash/Hives/throat Verified 04/09/21 18:56 swelling topiramate [From Topamax] AdvReac Severe mood swings Verified 04/09/21 18:56 Physical Exam Vitals: Vital Signs Temp Pulse Resp BP Pulse Ox 04/10/21 15:21 102/67 04/10/21 13:00 98 F 64 16 75/49 95 04/10/21 08:00 80 20 04/10/21 04:35 98.2 F 80 20 102/71 96 04/09/21 21:15 98.3 F 81 18 102/70 96 Intake and Output 04/10/21 04/10/21 04/10/21 06:59 14:59 22:59 Intake Total 100 240 Balance 100 240 Intake: Oral 100 240 Other: # Voids 1 3 - Constitutional General appearance: no acute distress - EENT Eyes: EOMI, PERRLA ENT: hearing grossly normal, normal oropharynx - Neck Neck: no lymphadenopathy Thyroid: bilateral: normal size - Respiratory Respiratory: bilateral: CTA - Cardiovascular Rhythm: regular Heart sounds: normal: S1, S2 - Gastrointestinal General gastrointestinal: normal bowel sounds, soft Localized gastrointestinal: tender: RUQ - Integumentary Small grayish brown plaque-like lesions about 1-1.5 cm area, right axilla, and under right breast - Neurologic Neurologic: CNII-XII intact - Musculoskeletal Significant tenderness to palpation, right paraspinal area, in the right CV angle region Musculoskeletal: generalized weakness, strength equal bilaterally - Psychiatric Psychiatric: A&O x's 3, appropriate affect Lymph node mass about 2.5-3 cm right axilla, partially mobile Results CBC & Chem 7: 04/09/21 16:13 04/09/21 16:13 Labs: Abnormal Lab Results - Last 24 Hours (Table) 04/09/21 Range/Units 16:13 CA 27-29 146.6 H (0.0-38.5) U/mL Microbiology - Last 24 Hours (Table) 04/09/21 16:13 Blood Culture - Preliminary Blood No Growth after 24 hours 04/09/21 16:13 Blood Culture - Preliminary Blood No Growth after 24 hours 04/09/21 16:13 Urine Culture - Preliminary Urine,Voided Chest x-ray: report reviewed CT scan - abdomen: report reviewed CT scan - chest: report reviewed CT scan - pelvis: report reviewed Assessment and Plan (1) Fever Narrative/Plan: The patient had significant fever, without however, neutropenia. She has been afebrile since coming to the hospital. She did have some respiratory symptoms prior to admission which are actually mostly resolved. She does have some right paraspinal tenderness in the costovertebral region on the right, but it is not clear if this is muscular skeletal or related to the right kidney. CT of the abdomen and pelvis did not show any hydronephrosis or other abnormality related to the right kidney. UA was only mildly abnormal. Covid testing as well as influenza testing were negative. - The patient was started on antibiotics empirically. Cultures are pending. If these are negative over 48 hours and she remains afebrile, then it is possible that her fever as well as her upper respiratory symptoms could have been related to white blood count recovery from Neulasta, which she received on 03/25/21. Typically, however, that is associated with a phase when the the WBC is actually higher than normal. Current Visit: Yes Status: Acute Code(s): R50.9 - FEVER, UNSPECIFIED SNOMED Code(s): 560702960 (2) Breast cancer, right Narrative/Plan: Diagnostic and supportive circumstances as described. The patient was actually supposed to have surgery on 04/13/21. Case was discussed in detail with the surgical service. At this time there is concern that she may actually be progressing on neoadjuvant chemotherapy. Her CT scans every some possibility of metastatic disease in the retroperitoneum, as well as the liver. - The above and indications were discussed in detail with the patient and her family. They were advised that if indeed she is having progressive disease with development of metastasis, then she would not be a candidate for surgery. The patient will need full restaging to check for the same. As she has been having some increased back pain, check x-ray of the lumbar spine. Tumor markers will also be ordered. Assuming that the patient is stable for discharge in the near future, plan for scheduling a PET scan as an outpatient as soon as possible for reevaluation Current Visit: No Status: Acute Priority: Medium Code(s): C50.911 - MALIGNANT NEOPLASM OF UNSP SITE OF RIGHT FEMALE BREAST SNOMED Code(s): 677048279 (3) Back pain Narrative/Plan: The patient has some chronic back pain related to her history of Arnold Chiari malformation Which is typically well controlled with [place] 7.5 once or twice a day. According to the patient the pain has been much more significant. This possibly could be due to growth factor and Taxol effect. Other differentials include UTI, as well as metastatic disease. - Patient's [place] will be changed to 10-325 with a schedule of every 6 hours. She will also be placed on ibuprofen twice a day with food. - Regarding possibility of UTI and pyelonephritis, as stated she does have pain in the right paraspinal area. However CT scans did not show any abnormality in the right kidney (there was some perinephric fat stranding related to the left kidney). - Lumbar spine x-ray has been ordered to workup possibility of bone metastasis. CAT scan had also shown development of retroperitoneal adenopathy, measuring up to 1.8 cm in the para-aortic region. This could also be a possible source. - Follow with adjustment of pain medication regimen as noted above, as well as treatment for UTI. Current Visit: Yes Status: Acute Code(s): M54.9 - DORSALGIA, UNSPECIFIED SNOMED Code(s): 143699413
[2021-04-10] MEDS: ARIPiprazole 2 MG TAB PO SCH (21:04)
[2021-04-10] MEDS: traZODone HCL 50 MG TAB PO SCH (21:04)
[2021-04-10] MEDS: LEVOFLOXACIN 500 MG TAB PO SCH (21:04)
[2021-04-10] MEDS: DULoxetine HCL 60 MG CAPSULE.DR PO SCH (21:05)
[2021-04-10] MEDS: CYCLOBENZAPRINE 5 MG TAB PO PRN (21:06)
[2021-04-11] MEDS: HYDROcodone/APAP 10-325MG 1 EACH TAB PO PRN ×3 (03:30→20:10)
[2021-04-11] MEDS: SODIUM CHLORIDE 0.9% 1,000 ML IV SCH ×2 (04:54→14:09)
[2021-04-11] MEDS: HEPARIN SODIUM,PORCINE/PF 5,000 UNIT/0.5 ML SYRINGE SQ SCH ×4 (04:55→23:10)
[2021-04-11 07:55] LABS: Anisocytosis Slight; Basophils % (A) 1 %; Eosinophils # (A) 0.4 k/uL (0-0.7); Eosinophils % (A) 7 %; HCT 31.9 % (34.0-46.0); HGB 10.1 gm/dL (11.4-16.0); Hypochromasia Moderate; Lymphocytes # (A) 0.5 k/uL (1.0-4.8); Lymphocytes % (A) 9 %; MCH 30.1 pg (25.0-35.0); MCHC 31.7 g/dL (31.0-37.0); Mean Platelet Volume 7.4; Monocytes # (A) 0.4 k/uL (0-1.0); Monocytes % (A) 7 %; Neutrophils % (A) 74 %; Platelet Count 463 k/uL (150-450); RBC 3.35 m/uL (3.80-5.40); RDW 16.3 % (11.5-15.5); WBC 5.4 k/uL (3.8-10.6)
[2021-04-11] MEDS: IBUPROFEN 600 MG TAB PO SCH ×2 (08:12→20:13)
[2021-04-11] MEDS: LEVOTHYROXINE 25 MCG TAB PO SCH (08:12)
[2021-04-11] MEDS: PROPRANOLOL 40 MG TAB PO SCH ×2 (08:12→20:13)
--- NOTE | 2021-04-11 12:25 | P.PN ---
Subjective Progress Note Date: 04/11/21 The patient states that she feels much improved today especially in terms of her main complaint which was the back pain. She's not had any recurrence of any respiratory issues. She has been afebrile this admission. Objective - Vital Signs Vital signs: Vital Signs Temp 98.7 F 04/11/21 07:35 Pulse 76 04/11/21 08:40 Resp 20 04/11/21 08:40 BP 116/70 04/11/21 07:35 Pulse Ox 92 L 04/11/21 05:00 Intake & Output 04/10/21 04/11/21 04/11/21 18:59 06:59 18:59 Intake Total 240 300 Balance 240 300 Intake: Oral 240 300 Other: Voiding Method Toilet Toilet # Voids 3 2 - Constitutional General appearance: Present: no acute distress - EENT Eyes: Present: EOMI ENT: Present: hearing grossly normal, normal oropharynx - Respiratory Respiratory: bilateral: CTA - Cardiovascular Rhythm: regular Heart sounds: normal: S1, S2 - Gastrointestinal General gastrointestinal: Present: normal bowel sounds, soft - Integumentary Integumentary: Present: normal - Neurologic Neurologic: Present: CNII-XII intact - Musculoskeletal Musculoskeletal: Present: strength equal bilaterally - Labs CBC & Chem 7: 04/11/21 06:48 04/09/21 16:13 Labs: Abnormal Lab Results - Last 24 Hours (Table) 04/09/21 04/11/21 Range/Units 16:13 06:48 RBC 3.35 L (3.80-5.40) m/uL Hgb 10.1 L (11.4-16.0) gm/dL Hct 31.9 L (34.0-46.0) % RDW 16.3 H (11.5-15.5) % Plt Count 463 H (150-450) k/uL Lymphocytes # 0.5 L (1.0-4.8) k/uL CA 27-29 146.6 H (0.0-38.5) U/mL Microbiology - Last 24 Hours (Table) 04/09/21 16:13 Blood Culture - Preliminary Blood No Growth after 24 hours 04/09/21 16:13 Blood Culture - Preliminary Blood No Growth after 24 hours Assessment and Plan (1) Fever Narrative/Plan: The fever has not recurred since admission. She is currently on Rocephin empirically. Cultures have been negative. Defer to the admitting service as to switching her to oral antibiotics to complete a full course empirically Current Visit: Yes Status: Acute Code(s): R50.9 - FEVER, UNSPECIFIED SNOMED Code(s): 906909816 (2) Breast cancer, right Narrative/Plan: There is concern for progression of disease despite aggressive neoadjuvant therapy, based on the CAT scans. This was again discussed with the patient. The plan would be to schedule a PET scan post discharge and this coming week, as soon as possible. She will then be reevaluated based on the PET scan, as to whether there has been progression and if she still a candidate for surgery or not. Current Visit: No Status: Acute Priority: Medium Code(s): C50.911 - MALIGNANT NEOPLASM OF UNSP SITE OF RIGHT FEMALE BREAST SNOMED Code(s): 151871870 (3) Back pain Narrative/Plan: This is significantly improved. Lumbar spine x-ray did not show any significant of normality. Bone scan was not ordered, as her osseous structures will be evaluated anyway with the PET scan, which she will definitely need. In addition the CAT scan did not show any significant osseous abnormalities either. - Improvement in her symptoms is more likely due to increase in the ibuprofen, as a change in her Aquilla strength was not very significant - Therefore would recommend that the patient take ibuprofen twice a day with meals as an outpatient for an additional 5-7 days. She was advised that she can use her [place] 7.5, which he takes at home more frequently as every 6 hours as needed in the short-term if back pain were to become more significant. Current Visit: Yes Status: Acute Code(s): M54.9 - DORSALGIA, UNSPECIFIED SNOMED Code(s): 476417778
[2021-04-11 12:53] LABS: African American GFR (CKD) 120.4 (60.0-200.0); Albumin 3.2 g/dL (3.80-4.90); Albumin/Globulin Ratio 2.13 (1.60-3.17); Anion Gap 1.3 mmol/L (4.00-12.00); BUN/Creat Ratio 8.57 Ratio (12.00-20.00); Calcium 8.3 mg/dL (8.7-10.3); Carbon Dioxide 30.7 mmol/L (21.6-31.8); Globulin 1.5 g/dL (1.6-3.3); Non-African American GFR(CKD) 103.9 (60.0-200.0); Potassium 4.5 mmol/L (3.5-5.5); Total Bilirubin 0.3 mg/dL (0.3-1.2); Total Protein 4.7 g/dL (6.2-8.2)
[2021-04-11] MEDS: ONDANSETRON 4 MG/2 ML VIAL IVP PRN (14:07)
[2021-04-11] MEDS: CYCLOBENZAPRINE 5 MG TAB PO PRN (20:11)
[2021-04-11] MEDS: LEVOFLOXACIN 500 MG TAB PO SCH (20:13)
[2021-04-11] MEDS: traZODone HCL 50 MG TAB PO SCH (20:14)
[2021-04-11] MEDS: ARIPiprazole 2 MG TAB PO SCH (20:14)
[2021-04-11] MEDS: DULoxetine HCL 60 MG CAPSULE.DR PO SCH (20:14)
[2021-04-12] MEDS: SODIUM CHLORIDE 0.9% 1,000 ML IV SCH ×2 (02:41→13:43)
[2021-04-12] MEDS: HYDROcodone/APAP 10-325MG 1 EACH TAB PO PRN ×4 (02:50→20:34)
[2021-04-12] MEDS: LEVOTHYROXINE 25 MCG TAB PO SCH (06:14)
[2021-04-12] MEDS: IBUPROFEN 600 MG TAB PO SCH ×2 (09:13→20:28)
[2021-04-12] MEDS: HEPARIN SODIUM,PORCINE/PF 5,000 UNIT/0.5 ML SYRINGE SQ SCH ×3 (09:13→23:16)
[2021-04-12] MEDS: PROPRANOLOL 40 MG TAB PO SCH ×2 (09:20→20:34)
[2021-04-12 13:00] VITALS: BMI 38.3
--- NOTE | 2021-04-12 15:34 | P.PN ---
Subjective Progress Note Date: 04/12/21 Principal diagnosis: Back pain, Breast cancer In f/u today pt pain is better controlled on current analgesic regimen, denies concerns for constipation at this time. No other c/o. Objective - Vital Signs Vital signs: Vital Signs Temp 98.5 F 04/12/21 04:25 Pulse 75 04/12/21 04:25 Resp 16 04/12/21 04:25 BP 93/53 04/12/21 04:25 Pulse Ox 93 L 04/12/21 04:25 Intake & Output 04/11/21 04/12/21 04/12/21 18:59 06:59 18:59 Intake Total 240 935 Balance 240 935 Intake: Intake, IV Titration 935 Amount Sodium Chloride 0.9% 1, 935 000 ml @ 75 mls/hr IV . [id number] [facility] Rx#:[id number] Oral 240 Other: Voiding Method Toilet Toilet # Voids 4 - Constitutional General appearance: Present: average body habitus, cooperative, no acute distress - EENT Eyes: Present: anicteric sclerae, EOMI ENT: Present: hearing grossly normal, normal oropharynx - Respiratory Respiratory: bilateral: CTA - Cardiovascular Rhythm: regular Heart sounds: normal: S1, S2 Abnormal Heart Sounds: Absent: systolic murmur, diastolic murmur, rub, S3 Gallop, S4 Gallop, click, other - Peripheral edema leg Peripheral Edema: bilateral: None - Gastrointestinal General gastrointestinal: Present: normal bowel sounds, soft - Integumentary Integumentary: Present: normal - Neurologic Neurologic: Present: CNII-XII intact - Musculoskeletal Musculoskeletal: Present: strength equal bilaterally - Psychiatric Psychiatric: Present: A&O x's 3, appropriate affect, intact judgment & insight - Labs CBC & Chem 7: 04/11/21 06:48 04/11/21 06:48 Labs: Abnormal Lab Results - Last 24 Hours (Table) 04/09/21 04/11/21 Range/Units 16:13 06:48 Chloride 112 H (96-109) mmol/L Anion Gap 1.30 L (4.00-12.00) mmol/L BUN 6.0 L (9.0-27.0) mg/dL BUN/Creatinine Ratio 8.57 L (12.00-20.00) Ratio Calcium 8.3 L (8.7-10.3) mg/dL AST 58 H (13-35) U/L ALT 49 H (8-44) U/L Alkaline Phosphatase 239 H (41-126) U/L Total Protein 4.7 L (6.2-8.2) g/dL Albumin 3.20 L (3.80-4.90) g/dL Globulin 1.5 L (1.6-3.3) g/dL CA 15-3 Antigen 68.8 H (0.0-32.3) U/mL Microbiology - Last 24 Hours (Table) 04/09/21 16:13 Blood Culture - Preliminary Blood No Growth after 48 hours 04/09/21 16:13 Blood Culture - Preliminary Blood No Growth after 48 hours Assessment and Plan (1) Breast cancer, right Current Visit: Yes Status: Acute Priority: High Code(s): C50.911 - MALIGNANT NEOPLASM OF UNSP SITE OF RIGHT FEMALE BREAST SNOMED Code(s): 026271888 (2) History of Chiari malformation Current Visit: No Status: Chronic Priority: Low Code(s): Z86.69 - PERSONAL HISTORY OF DIS OF THE NERVOUS SYS AND SENSE ORGANS SNOMED Code(s): 206186800 Plan: Back pain controlled with norco and ibuprofen, Rx sent for the same Lumbar xray did not show metastatic disease. Concern for progressive disease. Plan is for PET scan [facility] - pt is sched for 04/23 (1st available) BUT, she is on priority list and will likely be called to come in for scan on 04/16. F/U appt made to discuss results and for treatment plan Discussed case with Dr. Wood. Planned breast surgery has been cancelled until after PET scan. F/U with Dr. Wood after scan as well. Plan is to discuss pt at tumor board tomorrow.
[2021-04-12] MEDS: LEVOFLOXACIN 500 MG TAB PO SCH (20:28)
[2021-04-12] MEDS: DULoxetine HCL 60 MG CAPSULE.DR PO SCH (20:28)
[2021-04-12] MEDS: traZODone HCL 50 MG TAB PO SCH (20:29)
[2021-04-12] MEDS: ARIPiprazole 2 MG TAB PO SCH (20:34)
[2021-04-13] MEDS: HYDROcodone/APAP 10-325MG 1 EACH TAB PO PRN ×2 (03:23→09:55)
[2021-04-13] MEDS: LEVOTHYROXINE 25 MCG TAB PO SCH (05:59)
[2021-04-13] MEDS: SODIUM CHLORIDE 0.9% 1,000 ML IV SCH (06:08)
[2021-04-13] MEDS: ONDANSETRON 4 MG/2 ML VIAL IVP PRN (08:37)
[2021-04-13] MEDS: HEPARIN SODIUM,PORCINE/PF 5,000 UNIT/0.5 ML SYRINGE SQ SCH (08:38)
[2021-04-13] MEDS ORDERED: PANTOPRAZOLE 40 MG TABLET PO SCH (08:45)
--- NOTE | 2021-04-13 08:52 | P.PN ---
Subjective Progress Note Date: 04/12/21 Progress Note 04/11/2021 HISTORY OF PRESENT ILLNESS This is a 45-year-old male patient of Dr. Oconnell newly established in the office in December. Patient has past medical history of malignant neoplasm of the right breast with right axillary lymphadenopathy and metastatic disease to the liver hypothyroidism, generalized anxiety disorder, migraine headache, recurrent depression, chronic reflux esophagitis, Chiari malformation, spondylosis of the lumbar spine. Patient follows with Dr. Bowden and Swathi Randolph [employer] regarding breast cancer treatment, and was recently seen in my office a few days ago for preoperative clearance that is scheduled with Dr. Wood on 04/13/2021 for right mastectomy, at that time patient did developed to have a significant swelling of the right upper extremity was significant lymphadenopathy in the right axillary area according to the patient she underwent ultrasound of the right upper extremity that was negative for DVT, and her surgeon and oncologist are both aware of it, patient presented to the emergency room and at [facility] yesterday with increased abdominal pain associated with nausea and vomiting without evidence of any dysuria or hematuria, her laboratory evaluation were totally normal, patient did have a recent computed tomography scan that did show evidence of metastatic liver disease with significant lymphadenopathy in the right axillary area, the emergency room physician Dr. Robledo had spoken with Dr. Bowden from hematology oncology and he was recommended for the patient to be admitted to the hospital for evaluation and treatment. As far as for UTI patient does appear to have 19 WBC in the urine the white count were normal the rest of the laboratory evaluation were normal subsequent she was admitted to the hospital because of intractable nausea and vomiting not able to keep anything down and because for abdominal pain, she was started on IV antibiotic in the form of Levaquin 500 mg IV piggyback every 24 hours, urine culture blood culture obtained she was told her on IV fluid in the form of normal saline at 75 mL an hour along with Zofran 4 mg IV push every 6 hours as needed. Patient underwent a chest x-ray that showed evidence of acute of normalities, CTA of the chest was negative for pulmonary embolus which showed better aeration of the left lower lobe pneumonia and the perihilar lymphadenopathy, this was followed by computed tomography scan of the abdomen and pelvis that was positive for multiple possible metastatic liver disease and bilateral renal lesions of undetermined cause. 04/11: Patient sitting up in bed in no acute distress, patient had an episode of hypotension yesterday when her blood pressure drop she was given a bolus of normal saline 500 mL over 1 hour, she appears to be a bit better today, she was seen in consultation by hematology oncology yesterday her surgery regarding her right mastectomy is currently placed on hold due to the metastatic nature of her illness at this time and further recommendation is to be guided by hematology oncology team. 04/12: Blood pressure has been stable with no episodes of hypotension overnight blood pressure this morning was soft with systolic in the 90s. Otherwise she's been afebrile and hemodynamically stable. She is continued on IV fluids at 75 mL per hour. Patient is followed by oncology with plan for PET scan as an outpatient.. REVIEW OF SYSTEMS Constitutional: No fever, no chills, no night sweats. No weight change. No weakness, fatigue or lethargy. No daytime sleepiness. EENT: No headache. No blurred vision or double vision, no loss of vision. No loss of Hearing, no ringing in the ears, no dizziness. No nasal drainage or congestion. No epistaxis. No sore throat. Lungs: Reports shortness of breath, reports cough, no sputum production. No wheezing. Cardiovascular: Denies heavy chest discomfort, no lower extremity edema. No palpitations. No paroxysmal nocturnal dyspnea. No orthopnea. No lightheadedness or dizziness. No syncopal episodes. Abdominal: No abdominal pain. No nausea, vomiting. No diarrhea. No constipation. No bloody or tarry stools.. No loss of appetite. Genitourinary: No dysuria, increased frequency, urgency. No urinary retention. Musculoskeletal: No myalgias. No muscle weakness, no gait dysfunction, no frequent falls. No back pain. No neck pain. Integumentary: No wounds, no lesions. No rash or pruritus. No unusual bruising. No change in hair or nails. Neurologic: No aphasia. No facial droop. No change in mentation. No head injury. No headache. No paralysis. No paresthesia. Psychiatric: No depression. No anxiety. No mood swings. Endocrine: No abnormal blood sugars. No weight change. PHYSICAL EXAMINATION Gen: This is a 45-year-old obese female. She is resting in bed appears to be comfortable at rest. HEENT: Head is atraumatic, normocephalic. Pupils equal, round. Sclerae is anicteric. Scalp alopecia. NECK: Supple. No JVD. No lymphadenopathy. No thyromegaly. LUNGS: Slightly diminished, no wheezes. No intercostal retractions. HEART: Regular rate and rhythm. No murmur. Mediport to the right upper anterior chest wall. ABDOMEN: Soft. Bowel sounds are present. No masses. No tenderness. EXTREMITIES: No pedal edema. No calf tenderness. NEUROLOGICAL: Patient is awake, alert and oriented x3. Cranial nerves 2 through 12 are grossly intact. ASSESSMENT AND PLAN 1. Abdominal pain with intermittent nausea and vomiting likely related to metastatic liver disease. Continue IV fluids at 75 mL per hour, continue with Zofran 4 mg IV push every 6 hours, hematology oncology consultation appreciated. 2. Acute cystitis without evidence of sepsis. Continue Levaquin 500 mg PO every 24 hours urine cultures and blood cultures were obtained. 3. Right-sided breast cancer with possible metastatic disease under the care of Dr. Bowden. Consult with oncology. 4. Anemia secondary to chemotherapy. 5 Hypothyroidism. Continue levothyroxine 25 g daily. 6 Gastroesophageal reflux disease. Continue Protonix 40 mg daily oral. 7 Generalized anxiety disorder and recurrent depression. Continue Abilify 2 mg at bedtime, Cymbalta 120 mg at bedtime, Ativan 0.5 mg 3 times daily as needed, trazodone 150 mg at bedtime. 8 History of migraine headaches. Continue Inderal 40 mg twice daily. 9 Chiari malformation, stable. 10. Spondylosis of the lumbar spine, stable. 11. Acute angle glaucoma, stable. 12. DVT prophylaxis. Heparin 5000 units subcutaneously every 8 hours. 13. GI prophylaxis. Continue Protonix 40 mg orally once every day. Objective - Vital Signs Vital signs: Vital Signs Temp 97.6 F 04/12/21 11:36 Pulse 73 04/12/21 11:36 Resp 17 04/12/21 11:36 BP 126/79 04/12/21 11:36 Pulse Ox 97 04/12/21 11:36 Intake & Output 04/11/21 04/12/21 04/12/21 18:59 06:59 18:59 Intake Total 240 935 Balance 240 935 Intake: Intake, IV Titration 935 Amount Sodium Chloride 0.9% 1, 935 000 ml @ 75 mls/hr IV . [id number] [facility] Rx#:[id number] Oral 240 Other: Voiding Method Toilet Toilet Toilet # Voids 4 - Labs CBC & Chem 7: 04/11/21 06:48 04/11/21 06:48 Labs: Abnormal Lab Results - Last 24 Hours (Table) 04/09/21 04/11/21 Range/Units 16:13 06:48 Chloride 112 H (96-109) mmol/L Anion Gap 1.30 L (4.00-12.00) mmol/L BUN 6.0 L (9.0-27.0) mg/dL BUN/Creatinine Ratio 8.57 L (12.00-20.00) Ratio Calcium 8.3 L (8.7-10.3) mg/dL AST 58 H (13-35) U/L ALT 49 H (8-44) U/L Alkaline Phosphatase 239 H (41-126) U/L Total Protein 4.7 L (6.2-8.2) g/dL Albumin 3.20 L (3.80-4.90) g/dL Globulin 1.5 L (1.6-3.3) g/dL CA 15-3 Antigen 68.8 H (0.0-32.3) U/mL Microbiology - Last 24 Hours (Table) 04/09/21 16:13 Blood Culture - Preliminary Blood No Growth after 48 hours 04/09/21 16:13 Blood Culture - Preliminary Blood No Growth after 48 hours
[2021-04-13] MEDS: IBUPROFEN 600 MG TAB PO SCH (09:54)
[2021-04-13] MEDS: PROPRANOLOL 40 MG TAB PO SCH (09:56)
[2021-04-13] MEDS ORDERED: ONDANSETRON 4 MG/2 ML VIAL IVP PRN (11:22)
--- NOTE | 2021-04-13 11:22 | P.PN ---
Subjective Progress Note Date: 04/13/21 Principal diagnosis: Back pain, Breast cancer In f/u today pt is having nausea after breakfast, malena is helping, she waited to take a pain pill until her nausea was improved so she is uncomfortable but, she feels the pain pill is working. No other c/o. Objective - Vital Signs Vital signs: Vital Signs Temp 97.9 F 04/13/21 04:36 Pulse 71 04/13/21 04:36 Resp 16 04/13/21 04:36 BP 120/76 04/13/21 04:36 Pulse Ox 95 04/13/21 04:36 Intake & Output 04/12/21 04/13/21 04/13/21 18:59 06:59 18:59 Weight 92.079 kg Other: Voiding Method Toilet Toilet Toilet # Voids 4 0 # Bowel Movements 1 0 - Constitutional General appearance: Present: average body habitus, cooperative, no acute distress - EENT Eyes: Present: anicteric sclerae, EOMI ENT: Present: hearing grossly normal, normal oropharynx - Respiratory Respiratory: bilateral: CTA - Cardiovascular Rhythm: regular Heart sounds: normal: S1, S2 Abnormal Heart Sounds: Absent: systolic murmur, diastolic murmur, rub, S3 Gallop, S4 Gallop, click, other - Peripheral edema leg Peripheral Edema: bilateral: None - Gastrointestinal General gastrointestinal: Present: normal bowel sounds, soft - Integumentary Integumentary: Present: normal - Neurologic Neurologic: Present: CNII-XII intact - Musculoskeletal Musculoskeletal: Present: strength equal bilaterally - Psychiatric Psychiatric: Present: A&O x's 3, appropriate affect, intact judgment & insight - Labs CBC & Chem 7: 04/11/21 06:48 04/11/21 06:48 Labs: Microbiology - Last 24 Hours (Table) 04/09/21 16:13 Blood Culture - Preliminary Blood No Growth after 72 hours 04/09/21 16:13 Blood Culture - Preliminary Blood No Growth after 72 hours 04/09/21 16:13 Urine Culture - Final Urine,Voided Enterococcus faecalis Assessment and Plan (1) Breast cancer, right Current Visit: Yes Status: Acute Priority: High Code(s): C50.911 - MALIGNANT NEOPLASM OF UNSP SITE OF RIGHT FEMALE BREAST SNOMED Code(s): 472980965 (2) History of Chiari malformation Current Visit: No Status: Chronic Priority: Low Code(s): Z86.69 - PERSONAL HISTORY OF DIS OF THE NERVOUS SYS AND SENSE ORGANS SNOMED Code(s): 189194586 Plan: Back pain controlled with norco and ibuprofen, Rx sent for the same yesterday Lumbar xray did not show metastatic disease. Concern for progressive disease. Surgery cancelled at this time. Plan is for PET scan [facility] - pt is sched for 04/23 (1st available) BUT, she is on priority list and will likely be called to come in for scan on 04/16. F/U appt made to discuss results and for treatment plan Nausea meds adjusted Cont abx for UTI per IM Ok for DC from Hem/Onc once cleared with Attending and Consulting MDs
[2021-04-13 12:02] VITALS: BP 132/78; PULSE 76; RESP 17; TEMP 98.3
--- NOTE | 2021-04-13 15:20 | P.DS ---
Providers Date of admission: 04/10/21 14:55 Expected date of discharge: 04/13/21 Attending physician: Marielle Oconnell Consults: 04/10/21 00:53 Consult Physician Routine Consulting Provider: Vidal Bowdne Consult Reason/Comments: breast cancer on chemotherapy, fever Do you want consulting provider notified?: Yes, Notify in am Primary care physician: Marielle Oconnell Hospital Course: HISTORY OF PRESENT ILLNESS This is a 45-year-old male patient of Dr. Oconnell newly established in the office in December. Patient has past medical history of malignant neoplasm of the right breast with right axillary lymphadenopathy and metastatic disease to the liver hypothyroidism, generalized anxiety disorder, migraine headache, recurrent depression, chronic reflux esophagitis, Chiari malformation, spondylosis of the lumbar spine. Patient follows with Dr. Bowden and Swathi Randolph [employer] regarding breast cancer treatment, and was recently seen in my office a few days ago for preoperative clearance that is scheduled with Dr. Wood on 04/13/2021 for right mastectomy, at that time patient did developed to have a significant swelling of the right upper extremity was significant lymphadenopathy in the right axillary area according to the patient she underwent ultrasound of the right upper extremity that was negative for DVT, and her surgeon and oncologist are both aware of it, patient presented to the emergency room and at [facility] yesterday with increased abdominal pain associated with nausea and vomiting without evidence of any dysuria or hematuria, her laboratory evaluation were totally normal, patient did have a recent computed tomography scan that did show evidence of metastatic liver disease with significant lymphadenopathy in the right axillary area, the emergency room physician Dr. Robledo had spoken with Dr. Bowden from hematology oncology and he was recommended for the patient to be admitted to the hospital for evaluation and treatment. As far as for UTI patient does appear to have 19 WBC in the urine the white count were normal the rest of the laboratory evaluation were normal subsequent she was admitted to the hospital because of intractable nausea and vomiting not able to keep anything down and because for abdominal pain, she was started on IV antibiotic in the form of Levaquin 500 mg IV piggyback every 24 hours, urine culture blood culture obtained she was told her on IV fluid in the form of normal saline at 75 mL an hour along with Zofran 4 mg IV push every 6 hours as needed. Patient underwent a chest x-ray that showed evidence of acute of normalities, CTA of the chest was negative for pulmonary embolus which showed better aeration of the left lower lobe pneumonia and the perihilar lymphadenopathy, this was followed by computed tomography scan of the abdomen and pelvis that was positive for multiple possible metastatic liver disease and bilateral renal lesions of undetermined cause. 04/11: Patient sitting up in bed in no acute distress, patient had an episode of hypotension yesterday when her blood pressure drop she was given a bolus of normal saline 500 mL over 1 hour, she appears to be a bit better today, she was seen in consultation by hematology oncology yesterday her surgery regarding her right mastectomy is currently placed on hold due to the metastatic nature of her illness at this time and further recommendation is to be guided by hematology oncology team. 04/12: Blood pressure has been stable with no episodes of hypotension overnight blood pressure this morning was soft with systolic in the 90s. Otherwise she's been afebrile and hemodynamically stable. She is continued on IV fluids at 75 mL per hour. Patient is followed by oncology with plan for PET scan as an outpatient.. 04/13: Patient continues to be followed by oncology with concern for progression of disease and plan is for PET scan which patient has been scheduled on 04/23. Lumbar x-ray did not show metastatic disease. She's been afebrile, heart rate 71, blood pressure 120/76, pulse ox 95% on room air. CA 153 68.8, CA 2729 146.6. Urine culture finalized with Enterococcus faecalis. Patient is on Cressey 10 for pain control. Patient felt nauseated after breakfast this morning and Zofran IV will be given. Patient will monitor until after lunch and a feeling better, go home. Patient feels that she would be more comfortable being home. Cressey will be sent to patient's pharmacy from the office. Patient will be discharged home today in stable condition. DISCHARGE DIAGNOSES 1. Abdominal pain with intermittent nausea and vomiting likely related to metastatic liver disease. 2. Acute cystitis without evidence of sepsis. 3. Right-sided breast cancer with possible metastatic disease under the care of Dr. Bowden. 4. Anemia secondary to chemotherapy. 5. Hypothyroidism. 6. Gastroesophageal reflux disease. 7. Generalized anxiety disorder and recurrent depression. 8. History of migraine headaches. 9. Chiari malformation, stable. 10. Spondylosis of the lumbar spine, stable. 11. Acute angle glaucoma, stable. DISCHARGE PLAN Home Impression and plan of care have been directed as dictated by the signing physician. Mariana Jameson nurse practitioner acting as scribe for signing physician. Patient Condition at Discharge: Stable Plan - Discharge Summary Discharge Rx Participant: Yes New Discharge Prescriptions: New Ibuprofen 600 mg PO BID #60 tab Levofloxacin [Levaquin] 500 mg PO HS #5 tab Pantoprazole [Protonix] 40 mg PO AC-BRKFST #30 tab HYDROcodone/APAP 10-325MG [Cressey 10-325] 1 each PO Q6HR PRN tab PRN Reason: Pain Continue traZODone HCL 150 mg PO HS DULoxetine HCL [Cymbalta] 120 mg PO HS Levothyroxine Sodium 25 mcg PO DAILY Cyclobenzaprine [Flexeril] 5 mg PO HS PRN PRN Reason: Pain,MUSCLE SPASM Propranolol [Inderal] 40 mg PO BID ARIPiprazole [Abilify] 2 mg PO HS Ondansetron Odt [Zofran ODT] 4 mg PO Q6H PRN PRN Reason: Nausea Discontinued HYDROcodone/APAP 7.5-325MG [Cressey 7.5-325] 1 tab PO Q12H PRN PRN Reason: Pain Discharge Medication List DULoxetine HCL [Cymbalta] 120 mg PO HS 03/30/20 [History] Levothyroxine Sodium 25 mcg PO DAILY 03/30/20 [History] traZODone HCL 150 mg PO HS 03/30/20 [History] Cyclobenzaprine [Flexeril] 5 mg PO HS PRN 07/01/20 [History] ARIPiprazole [Abilify] 2 mg PO HS 09/16/20 [History] Propranolol [Inderal] 40 mg PO BID 09/16/20 [History] Ondansetron Odt [Zofran ODT] 4 mg PO Q6H PRN 02/08/21 [History] Ibuprofen 600 mg PO BID #60 tab 04/12/21 [Rx] HYDROcodone/APAP 10-325MG [Cressey 10-325] 1 each PO Q6HR PRN tab 04/13/21 [Rx] Levofloxacin [Levaquin] 500 mg PO HS #5 tab 04/13/21 [Rx] Pantoprazole [Protonix] 40 mg PO AC-BRKFST #30 tab 04/13/21 [Rx] Follow up Appointment(s)/Referral(s): Marielle Oconnell MD [Primary Care Provider] - 04/16/21 9:00 am Florencio Hernandez MD [STAFF PHYSICIAN] - 04/23/21 8:00 am Patient Instructions/Handouts: Ibuprofen (By mouth), Levofloxacin (By mouth), Pantoprazole (By mouth), Hydrocodone (By mouth), Urinary Tract Infection in Women (DC), Chronic Pain (DC), Acute Nausea and Vomiting (DC) Activity/Diet/Wound Care/Special Instructions: PET scan scheduled for 04/23/21 at 430 at [facility] - On the priority call back list for this Monday-please be sure to answer your phone. Cressey 10/325 1 tablet every 6 hours as needed, #40 tablets, no refill. Prescription sent to her [facility] from the office Discharge Disposition: HOME SELF-CARE
== END 2021-04-13 14:00 | disposition home or self-care (01) | DRG 690 ==
LOC: EC 14:22 → SUPCPDRO 14:22 → 5NMEDONC 20:08 → OBSVTOIN 04-10 14:55
PROVIDERS: ADMIT Internal Medicine; ATTEND Internal Medicine
DX: N30.00 Acute cystitis without hematuria (principal); C78.7 Secondary malignant neoplasm of liver and intrahepatic bile duct; D84.9 Immunodeficiency, unspecified; F33.9 Major depressive disorder, recurrent, unspecified; C50.911 Malignant neoplasm of unspecified site of right female breast; D64.81 Anemia due to antineoplastic chemotherapy; E03.9 Hypothyroidism, unspecified; E86.0 Dehydration; F41.1 Generalized anxiety disorder; G89.29 Other chronic pain; H40.89 Other specified glaucoma; N28.9 Disorder of kidney and ureter, unspecified; K21.9 Gastro-esophageal reflux disease without esophagitis; L98.9 Disorder of the skin and subcutaneous tissue, unspecified; M47.816 Spondylosis without myelopathy or radiculopathy, lumbar region; Q07.00 Arnold-Chiari syndrome without spina bifida or hydrocephalus; Z68.38 Body mass index [BMI] 38.0-38.9, adult; K44.9 Diaphragmatic hernia without obstruction or gangrene; R50.81 Fever presenting with conditions classified elsewhere; R59.0 Localized enlarged lymph nodes; E66.9 Obesity, unspecified; G43.909 Migraine, unspecified, not intractable, without status migrainosus; T45.1X5A Adverse effect of antineoplastic and immunosuppressive drugs, initial encounter; Z20.822 Contact with and (suspected) exposure to COVID-19; Z79.890 Hormone replacement therapy; Z79.899 Other long term (current) drug therapy; Z80.3 Family history of malignant neoplasm of breast; Z82.49 Family history of ischemic heart disease and other diseases of the circulatory system; Z83.3 Family history of diabetes mellitus; Z87.891 Personal history of nicotine dependence; Z90.710 Acquired absence of both cervix and uterus; Z96.652 Presence of left artificial knee joint; Z90.49 Acquired absence of other specified parts of digestive tract; Z98.890 Other specified postprocedural states; H93.13 Tinnitus, bilateral; Z88.1 Allergy status to other antibiotic agents; Z88.8 Allergy status to other drugs, medicaments and biological substances; Z92.21 Personal history of antineoplastic chemotherapy
CPT/HCPCS: 36415; 71046; 71275; 72100; 74177; 80053; 81001; 83605; 83735; 84703; 85025; 86300; 87040; 87077; 87086; 87186; 87635; 87636

== ENCOUNTER → 2021-04-09 | Outpatient (CLI) | payer MEDICARE, OTHER ==
[2021-04-09 13:45] VITALS: BP 105/71; PULSE 115; RESP 18; TEMP 101.5
== END ==
LOC: WWCWWP 13:22
PROVIDERS: ATTEND Surgery
DX: Z53.9 Procedure and treatment not carried out, unspecified reason (principal)

== ENCOUNTER → 2021-04-16 | Outpatient (CLI) | payer MEDICARE, OTHER ==
--- NOTE | 2021-04-16 14:06 | PE ---
EXAMINATION TYPE: PET CT fusion skull to thigh DATE OF EXAM: 04/16/2021 COMPARISON: CT abdomen and pelvis April 09, 2021. Prior PET/CT November 07, 2020. Chest CT April 08, 2021 HISTORY: Right-sided Breast cancer diagnosed October 2020 completed chemotherapy March 24. TECHNIQUE: Following the intravenous administration of 12.90 mCi of F-18 FDG, whole body images are performed from the skull base to the midthigh. Images are reviewed on the computer in the coronal, a xial, and sagittal planes. Reconstructed rotating images are created on independent workstation and reviewed on the computer. A localization and attenuation correction CT is performed in conjunction with the PET scan. Blood glucose level equals 75 SCAN: Subsequent Scan FINDINGS: SKULL BASE AND NECK: New abnormal left supraclavicular hypermetabolic adenopathy as there is 1.4 x 1 .0 cm lymph node axial image 52, max SUV is 4.67. CHEST, MEDIASTINUM, AND HILAR REGION: New hypermetabolic left axillary lymph nodes, references 2.4 x 2.2 cm lymph node axial image 67, max SUV is 5.82. No new areas of abnormal hypermetabolic uptake in the left breast. Worsening larger area of uptake in the right breast extending to skin surface below the nipple, the m ax SUV on current study is 10.4 on axial image 75 versus 8.17 on prior study. Persistent abnormal rig ht axillary adenopathy , for reference is a 2.9 x 2.8 cm lymph node axial image 61, max SUV at this l evel is 27.33 on current study versus 17.99 prior study. Persistent 1.3 cm lateral inferior right breast hypermetabolic lesion has max SUV of 5.63 axial image 93 versus 5.30 prior study. Persistent abnormal hypermetabolic intramammary lymph nodes, for reference axial image 86 subcentimet er hypermetabolic lymph node redemonstrated. Abnormal hypermetabolic uptake corresponding to prominent subcarinal lymph node measuring 2.4 x 1.1 c m axial image 79. Additional abnormal hypermetabolic enlarged prevascular lymph node for reference is a posterior 1.6 x 1.3 cm lymph node axial image 70, max SUV is 6.93. New tiny right greater than left pleural effusions. New small to tiny inferior pericardial effusion. ABDOMEN AND PELVIS: New diffuse uptake throughout the liver and spleen. Mean SUV is 5.91In the liver and 6.76 in the spleen. New hypermetabolic enlarged adenopathy in the retroperitoneum. For Reference is 1.6 x 1.5 cm lymph n ode at level of kidneys left periaortic region image 147, the max SUV is 12.9 inferior to this axial image 155. Additional suspicious hypermetabolic lymph nodes periPancreatic region are noted. Some hyp ermetabolic lymph nodes in the upper to mid abdominal mesentery anterior to the SMA noted. There is a bnormal left iliac chain lymph node axial image 198 measuring 1.5 x 1.2 cm, max SUV is 10.8. OSSEOUS STRUCTURES: New scattered abnormal metabolic foci throughout the osseous structures with poor visualization of corresponding osseous lesions on CT, findings are most prominent in the pelvis. For reference L5 level axial image 176 on the perfusion images. There is suspected subtle lytic lesion l eft S1 level axial image 184 corresponding to hypermetabolic uptake. OTHER CT: Low occipital craniectomy change from Chiari surgery redemonstrated. Right internal jugular Mediport catheter redemonstrated. Small posterior pericardial effusion noted. Cholecystectomy clips redemonstrated. Liver is diffusely low dense. Subtle small hypodense lesions le ss well seen on this study. There is interval passage of the 4 mm left renal calculus into the proxim al ureter rectum at 147 without significant hydronephrosis. Scattered pelvic phleboliths redemonstrat ed. IMPRESSION: 1. Interval passage of 4 mm left renal calculus into proximal ureter without hydronephrosis. 2. Interval neoplastic progression or worsening disease as detailed above. Worsening right breast fin dings. Abnormal adenopathy above and below diaphragm with diffuse abnormal uptake in the liver and sp christiano raises concern for new primary neoplasm or lymphoma versus unusual posttreatment response from c hemotherapy which is felt less likely. Correlate clinically. Sampling of some lymph nodes for tissue diagnosis can be performed to further evaluate.
== END | disposition expired ==
LOC: RADPETMAIN 09:21
PROVIDERS: ATTEND Internal Medicine Hematology & Oncology
DX: C50.911 Malignant neoplasm of unspecified site of right female breast (principal); R59.0 Localized enlarged lymph nodes; N20.0 Calculus of kidney; R93.5 Abnormal findings on diagnostic imaging of other abdominal regions, including retroperitoneum
CPT/HCPCS: 78815; A9552

== ENCOUNTER 2021-04-17 05:36 | Inpatient (IN) | payer MEDICARE, OTHER ==
[2021-04-17] MEDS ORDERED: SODIUM CHLORIDE 0.9% 1,000 ML IV STA (05:43)
--- NOTE | 2021-04-17 05:45 | ED ---
Abdominal Pain HPI - General Chief Complaint: Abdominal Pain Stated Complaint: Abd Pain Time Seen by Provider: 04/17/21 05:42 Source: patient, RN notes reviewed, old records reviewed Mode of arrival: ambulatory Limitations: no limitations - History of Present Illness Initial Comments: This is a 45-year-old female to the ER for evaluation today. Patient complaining of increased heart rate, anxiety. Abdominal pain. Patient has right-sided abdominal pain with history of possible liver disease. Patient has known breast cancer, she has gone through 2 year for chemotherapy treatments, she is having significant abdominal pain lightheadedness dizziness weakness and feels like she is given a pass out. MD Complaint: abdominal pain (R sided) -: days(s) Location: diffuse, RUQ, RLQ, epigastric Radiation: epigastric, R flank Migration to: RUQ Severity: moderate Severity scale (1-10): 4 Quality: aching Consistency: constant Improves With: nothing Worsens With: nothing Context: other (none) Associated Symptoms: nausea Treatments Prior to Arrival: other (none) - Related Data Home Medications Medication Instructions Recorded Confirmed DULoxetine HCL [Cymbalta] 120 mg PO HS 03/30/20 04/17/21 Levothyroxine Sodium 25 mcg PO DAILY 03/30/20 04/17/21 traZODone HCL 150 mg PO HS 03/30/20 04/17/21 Cyclobenzaprine [Flexeril] 5 mg PO HS PRN 07/01/20 04/17/21 ARIPiprazole [Abilify] 2 mg PO HS 09/16/20 04/17/21 Propranolol [Inderal] 40 mg PO BID 09/16/20 04/17/21 HYDROcodone/APAP 10-325MG [[place] 1 tab PO Q6H PRN 04/17/21 04/17/21 10-325] Ondansetron HCl [Zofran] 4 mg PO Q6H PRN 04/17/21 04/17/21 Previous Rx's Medication Instructions Recorded Ibuprofen 600 mg PO BID #60 tab 04/12/21 Levofloxacin [Levaquin] 500 mg PO HS #5 tab 04/13/21 Pantoprazole [Protonix] 40 mg PO AC-BRKFST #30 tab 04/13/21 Allergies Allergy/AdvReac Type Severity Reaction Status Date / Time Cephalosporins Allergy Rash/Hives/throat Verified 04/17/21 09:30 swelling topiramate [From Topamax] AdvReac Severe mood swings Verified 04/17/21 09:30 Review of Systems ROS Statement: Those systems with pertinent positive or pertinent negative responses have been documented in the HPI. ROS Other: All systems not noted in ROS Statement are negative. Past Medical History Past Medical History: Cancer, Eye Disorder, GERD/Reflux, Neurologic Disorder, Thyroid Disorder Additional Past Medical History / Comment(s): Migraines; leaky mitral valve and tachycardia; CHIARI MALFORMATION; palpitations; ulcer in ; hx hiatal hernia; daily headaches; tinnitus timo ears; acute angular glaucoma-corrected with surgery; 10/30/20 right breast and axillary lymph node biopsy with invasive ductal carcinoma WITH CHEMO History of Any Multi-Drug Resistant Organisms: None Reported Past Surgical History: Breast Surgery, Section, Cholecystectomy, Hysterectomy, Orthopedic Surgery Additional Past Surgical History / Comment(s): left knee arthroscopy; rt breast lumpectomy benign; DECOMPRESSION SURGERY SECONDARY TO CHIARI MALFORMATION; C/S x3; vaginal cyst removed; timo eye surgery for glaucoma; 10/30/20 right breast and axillary lymph node biopsy with invasive ductal carcinoma; PORT A CATH Past Anesthesia/Blood Transfusion Reactions: Family History of Problems w/ Anest hesia Additional Past Anesthesia/Blood Transfusion Reaction / Comment(s): Mother woke during surgery. Past Psychological History: Anxiety, Depression Smoking Status: Former smoker Past Alcohol Use History: Occasional Past Drug Use History: Marijuana - Past Family History Mother Family Medical History: Cancer, Deep Vein Thrombosis (DVT), Pulmonary Embolus Additional Family Medical History / Comment(s): Breast Cancer left breast intraductal carcinoma in 1998 General Exam Limitations: altered mental status General appearance: alert, anxious, in distress Head exam: Present: atraumatic, normocephalic, normal inspection Eye exam: Present: normal appearance, PERRL, EOMI. Absent: scleral icterus, conjunctival injection, periorbital swelling ENT exam: Present: normal exam, mucous membranes dry Neck exam: Present: normal inspection. Absent: tenderness, meningismus, lymphadenopathy Respiratory exam: Present: respiratory distress, decreased breath sounds, prolonged expiratory. Absent: wheezes, rales, rhonchi, stridor Cardiovascular Exam: Present: normal rhythm, tachycardia, normal heart sounds. Absent: systolic murmur, diastolic murmur, rubs, gallop, clicks GI/Abdominal exam: Present: soft, normal bowel sounds. Absent: distended, tenderness, guarding, rebound, rigid Extremities exam: Present: normal inspection, full ROM, normal capillary refill. Absent: tenderness, pedal edema, joint swelling, calf tenderness Back exam: Present: normal inspection Neurological exam: Present: alert, oriented X3, CN II-XII intact Psychiatric exam: Present: normal affect, normal mood Skin exam: Present: warm, dry, intact, normal color. Absent: rash Course Vital Signs 04/17/21 04/17/21 04/17/21 05:37 07:38 08:00 Temperature 98.1 F Pulse Rate 133 H Respiratory 20 18 18 Rate Blood Pressure 94/68 O2 Sat by Pulse 92 L Oximetry 04/17/21 04/17/21 04/17/21 09:00 10:00 11:00 Temperature Pulse Rate 120 H 125 H 129 H Respiratory 18 18 18 Rate Blood Pressure 111/69 113/72 O2 Sat by Pulse 96 96 96 Oximetry 04/17/21 04/17/21 04/17/21 12:00 13:00 14:00 Temperature Pulse Rate 141 H 147 H 149 H Respiratory 18 18 18 Rate Blood Pressure 104/53 103/54 O2 Sat by Pulse 95 94 L 99 Oximetry 04/17/21 14:10 Temperature 98.1 F Pulse Rate 149 H Respiratory 18 Rate Blood Pressure 103/54 O2 Sat by Pulse 99 Oximetry - Reevaluation(s) Reevaluation #1: 04/17/21 06:13 Medical record is reviewed patient is significant difficult IV start and blood draw here in the ED, has Mediport Reevaluation #2: 04/17/21 07:11 Patient having no real clinical improvement with treatment here in the ER for any pain control and nausea control and IV hydration No source of current infection is found Reevaluation #3: 04/17/21 07:11 Patient continues to show no improvement here in the ER Patient family informed of findings - Consultations Consultation #1: spoke w DR medrano re admission and he is agreeable. Medical Decision Making - Medical Decision Making 45 female to the emergency department for evaluation. Patient having significantly abnormal vital signs nausea vomiting tachycardia and weakness. Patient will be admitted for symptom care management. Pain control. She also had to have elevated lactic acidosis, as well as white blood cell, - Lab Data Result diagrams: 04/17/21 20:43 04/17/21 07:35 - EKG Data -: EKG Interpreted by Me (EKG shows sinus tachycardia 1:30 OK 62 QRS 76 QTc 579) - Radiology Data Radiology results: report reviewed (CXR is PVC and edema), image reviewed Critical Care Time Critical Care Time: Yes Total Critical Care Time: 31 Disposition Clinical Impression: History of chemotherapy, Intractable nausea and vomiting, Breast cancer, right, Back pain, Abdominal pain, Dehydration, Liver mass, Leukocytosis, Lactic acidosis Disposition: ADMITTED IP TO THIS [facility] Condition: Serious Is patient prescribed a controlled substance at d/c from ED?: No
[2021-04-17] MEDS ORDERED: NALOXONE 0.4 MG/ML 1 ML VIAL IV PRN (06:39)
[2021-04-17] MEDS ORDERED: LORazepam 2 MG/ML INJ IV PRN (06:41)
[2021-04-17] MEDS ORDERED: LORazepam 2 MG/ML INJ IV STA (06:41)
[2021-04-17] MEDS ORDERED: HYDROmorphone 1 MG/ML 1 ML SYRINGE IVP STA (06:41)
[2021-04-17] MEDS ORDERED: DEXTROSE 5%-0.45% NACL 1,000 ML IV SCH (06:45)
--- NOTE | 2021-04-17 06:55 | XR ---
EXAMINATION TYPE: XR chest 1V portable DATE OF EXAM: 04/17/2021 COMPARISON: Chest x-ray April 09, 2021. Chest CT April 08, 2021 HISTORY: Chest and abdominal pain. History of breast cancer. TECHNIQUE: Single frontal view of the chest is obtained. FINDINGS: Stable right internal jugular Mediport catheter. Diminished inspiration on current study wi th persistent lateral left mid lung linear scarring There is no suspicious new focal air space opacit y, pleural effusion, or pneumothorax seen. The cardiac silhouette size is slightly more prominent an d upper limits of normal. New mild central vascular congestion. The osseous structures are intact. IMPRESSION: New Mild central vascular congestion, correlate for fluid overload state.
[2021-04-17 08:20] LABS: AST 290 U/L (14-36); African American GFR (CKD) >90 (>60 ml/min/1.73 sqM); Albumin 2.7 g/dL (3.5-5.0); Alcohol <10 mg/dL; Alkaline Phosphatase 969 U/L (38-126); Amylase <30 U/L (30-110); Anion Gap 19 mmol/L; Blood Urea Nitrogen 12 mg/dL (7-17); Calcium 8.4 mg/dL (8.4-10.2); Carbon Dioxide 16 mmol/L (22-30); Chloride 103 mmol/L (98-107); Creatine Kinase 119 U/L (30-135); Glucose 69 mg/dL (74-99); Non-African American GFR(CKD) >90 (>60 ml/min/1.73 sqM); Potassium 3.5 mmol/L (3.5-5.1); Sodium 138 mmol/L (137-145); Total Bilirubin 2.4 mg/dL (0.2-1.3); Total Protein 5.1 g/dL (6.3-8.2)
[2021-04-17 08:25] LABS: ALT 58 U/L (4-34)
[2021-04-17] MEDS ORDERED: SODIUM CHLORIDE 0.9% 500 ML 500 ML IV ONE (11:30)
[2021-04-17] MEDS: SODIUM CHLORIDE 0.9% 1,000 ML IV SCH (13:59)
--- NOTE | 2021-04-17 14:22 | CT ---
EXAMINATION TYPE: CT angio chest DATE OF EXAM: 04/17/2021 1:08 PM COMPARISON: Chest CT 9 days ago HISTORY: ASSESS PE CT DLP: 385.6 mGycm Automated exposure control for dose reduction was used. CONTRAST: CTA scan of the thorax is performed without and with IV Contrast, patient injected with 100 mL of Iso shaun 370, pulmonary embolism protocol. MIP images are created and reviewed. FINDINGS: Exam noted suboptimal as patient does not follow commands. Exam performed essentially under expiratory phase. LUNGS: There is significant respiratory motion artifact degradation making evaluation suboptimal. The re are tiny right greater than left pleural effusions. There is associated compressive atelectasis. T here is new left mid and basilar linear atelectasis MEDIASTINUM: There is most dense contrast in aorta without aneurysm or dissection. Small pericardial effusion is larger than prior. Heart size upper limits of normal. Enlarged main pulmonary artery cons istent with underlying pulmonary hypertension redemonstrated. No large saddle central pulmonary embol ism, cannot exclude partial occlusive lobar, segmental, or subsegmental pulmonary emboli on this stud y as there is poor opacification of pulmonary arteries. OTHER: Abnormal bilateral axillary lymph nodes redemonstrated. Upper abdomen only partially imaged. IMPRESSION: Suboptimal study without large saddle pulmonary embolism. Tiny right greater than left pl eural effusions on current study. Evidence of underlying pulmonary coronary artery hypertension. Abno rmal bilateral axillary adenopathy correlates with PET/CT one day earlier.
[2021-04-17 14:44] LABS: Lipase <10 U/L (23-300); Magnesium 1.4 mg/dL (1.6-2.3); Phosphorus 2.9 mg/dL (2.5-4.5)
[2021-04-17 15:44] LABS: Glucose,Whole Blood 57 mg/dL (75-99)
[2021-04-17] MEDS: DEXTROSE 50% SYRINGE 50 ML IVP ONE (15:50)
[2021-04-17 16:08] LABS: Glucose,Whole Blood 105 mg/dL (75-99)
[2021-04-17] MEDS: HYDROmorphone 1 MG/ML 1 ML SYRINGE IVP PRN ×2 (19:02→22:55)
[2021-04-17] MEDS ORDERED: FUROSEMIDE 10 MG/ML 4 ML VIAL IV STA (19:57)
[2021-04-17] MEDS ORDERED: VANCOMYCIN 0 MG in SODIUM CHLORIDE 0.9% 250 ML IVPB SCH (20:00)
[2021-04-17 20:12] LABS: Amorphous Sediment,Urine Rare /hpf; Bacteria,Urine Rare /hpf; Hyaline Casts,Urine 52 /lpf (0-2); Mucus,Urine Occasional /hpf; RBC,Urine >182 /hpf (0-5); Squamous Epithelial Cell,Urine 2 /hpf (0-4); WBC,Urine 43 /hpf (0-5)
[2021-04-17 20:27] LABS: Appearance,Urine Slightly Cloudy (Clear); Color,Urine Dark Brown
[2021-04-17] MEDS: NOREPINEPHRINE 4 MG in SODIUM CHLORIDE 0.9% 250 ML IV SCH ×2 (20:37→23:45)
[2021-04-17 20:52] LABS: Glucose,Whole Blood 73 mg/dL (75-99)
[2021-04-17 20:58] LABS: Anisocytosis Slight; HCT 39.9 % (34.0-46.0); HGB 11.7 gm/dL (11.4-16.0); Hypochromasia Marked; MCH 28.1 pg (25.0-35.0); MCHC 29.4 g/dL (31.0-37.0); MCV 95.5 fL (80.0-100.0); Poikilocytosis Slight; RBC 4.17 m/uL (3.80-5.40); RDW 17.4 % (11.5-15.5)
[2021-04-17] MEDS ORDERED: VANCOMYCIN 1,750 MG in SODIUM CHLORIDE 0.9% 500 ML 500 ML IVPB SCH (21:00)
[2021-04-17] MEDS ORDERED: SODIUM CHLORIDE 0.9% 1,000 ML IV ONE (21:35)
[2021-04-17 21:47] LABS: Platelet Count 164 k/uL (150-450)
[2021-04-17 22:34] LABS: Band Neutrophils % 26 %; Large Platelets Present; Metamyelocytes % 1 %; Myelocytes % 1 %; Neutrophils % (M) 56 %; Nucleated Red Blood Cells 3 /100 WBC (0-0); Total Cells Counted 200
[2021-04-17 22:35] LABS: Polychromasia Present
[2021-04-17 23:02] LABS: ABG Base Excess -14.5 mmol/L; ABG HCO3 12 mmol/L (21-25); ABG Oxygen Saturation 94.1 % (94-97); ABG PCO2 27 mmHg (35-45); ABG PH 7.27 (7.35-7.45); ABG PO2 80 mmHg (83-108); ABG TCO2 13 mmol/L (19-24)
[2021-04-17 23:03] LABS: Allen Test Performed? no
[2021-04-17] MEDS ORDERED: SODIUM BICARB 8.4% 50 ML SYR (1 MEQ/ML) IV STA (23:14)
[2021-04-17] MEDS ORDERED: SODIUM CHLORIDE 0.9% 2,000 ML IV ONE (23:14)
[2021-04-17] MEDS ORDERED: propofoL 100 ML IV ONE (23:36)
[2021-04-17] MEDS ORDERED: CHLORHEXIDINE GLUCONATE 15 ML CUP MUCOUS MEM ONE (23:54)
[2021-04-18] MEDS ORDERED: PIPERACILLIN-TAZOBACTAM 3.375 GM in SODIUM CHLORIDE 0.9% 100 ML IVPB SCH ×2
[2021-04-18 00:38] VITALS: RESP 32; TEMP 98.8
--- NOTE | 2021-04-18 00:41 | XR ---
EXAMINATION TYPE: XR chest 1V portable DATE OF EXAM: 04/18/2021 COMPARISON: Yesterday HISTORY: Respiratory failure TECHNIQUE: FINDINGS: There is right jugular catheter with tip in the superior vena cava. There is endotracheal t ube 1.8 cm from the cristina. There is nasogastric tube in the stomach. There is blunting of the costop hrenic angles. There is mild pulmonary congestion. There are chest leads. IMPRESSION: Pleural fluid and pulmonary congestion increased slightly compared to yesterday. This is probably congestive heart failure. There is increasing infiltrate left lower lobe.
[2021-04-18] MEDS ORDERED: DEXTROSE 50% SYRINGE 50 ML IVP ONE (00:58)
[2021-04-18 00:59] LABS: ABG Base Excess -16.8 mmol/L; ABG HCO3 11 mmol/L (21-25); ABG PCO2 29 mmHg (35-45); ABG PO2 124 mmHg (83-108); ABG TCO2 12 mmol/L (19-24); Allen Test Performed? no
[2021-04-18] MEDS: DEXTROSE 50% SYRINGE 50 ML IVP ONE (01:02)
[2021-04-18 01:08] LABS: Glucose,Whole Blood 51 mg/dL (75-99)
[2021-04-18 01:34] LABS: Glucose,Whole Blood 122 mg/dL (75-99)
[2021-04-18] MEDS ORDERED: SODIUM BICARB 8.4% 50 ML SYR (1 MEQ/ML) ONE (01:44)
[2021-04-18] MEDS ORDERED: SODIUM CHLORIDE 0.9% 1,000 ML IV ONE (01:49)
[2021-04-18] MEDS ORDERED: SODIUM BICARB 8.4% 50 ML SYR (1 MEQ/ML) IV STA (01:49)
[2021-04-18] MEDS ORDERED: SODIUM CHLORIDE 0.9% 150 ML with VASOPRESSIN 60 UNIT IV SCH ×2 (02:00)
[2021-04-18] MEDS: NOREPINEPHRINE 4 MG in SODIUM CHLORIDE 0.9% 250 ML IV SCH ×2 (02:10→03:35)
[2021-04-18] MEDS: SODIUM CHLORIDE 0.9% 1,000 ML IV SCH (02:20)
[2021-04-18] MEDS: HYDROmorphone 1 MG/ML 1 ML SYRINGE IVP PRN (03:53)
[2021-04-18 03:58] VITALS: BP 75/47; PULSE 144
--- NOTE | 2021-04-18 08:25 | P.CNPUL ---
History of Present Illness Consult date: 04/17/21 Chief complaint: abdominal pain History of present illness: This is a 45-year-old female patient and I was involved in her care throughout the day yesterday and overnight. This patient is somewhat is a 45-year-old female patient with metastatic breast cancer. 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 The patient has been treated by oncology on outpatient basis. She was Hospital last week for increased abdominal pain and nausea and emesis. At that time her evaluation was found to be normal and CAT scan showed metastatic liver disease with significant lymphadenopathy involving the right axilla. Hematology oncology was involved in the case. The patient was given IV antibiotics. She was given antiemetic and the patient was discharged home. Following that, the patient underwent a PET/CT on 04/16/2021 and the patient was found to have interval neoplastic progression and worsening of the disease. There was worsening of the rest breast findings. The patient was found to have new abnormal left supraclavicular hypermetabolic lymphadenopathy measuring 1.4 x 1 cm in size. Within the chest and the mediastinum, there was new hypermetabolic left axillary lymph nodes measuring 2.4 x 2.2 cm and new areas of abnormal metabolic activity in the left breast. There was worsening large area of uptake in the right breast extending to the skin surface below the nipple and persistent right axillary lymphadenopathy. Within the abdomen, there was new diffuse uptake through the liver and spleen and there was also lymphadenopathy in the retroperitoneum and abnormal hypermetabolic lymph nodes in the upper and mid abdominal mesentery anterior to SMA and abnormal left iliac chain lymph nodes in addition to new scattered abnormal metabolic foci throughout the osseous structures findings most prominent in the pelvis. Suspected also lytic lesion at the level of S1. Liver was diffusely involved with low-density lesions and this was typical of underlying neoplastic progression. In terms of her cancer history, the patient has been followed up by oncology. She initially had grade 2 invasive ductal carcinoma initially treated with estrogen-based regimen following that the patient was given systemic chemotherapy. I think she was getting a Taxol-based regimen with Neulasta and she completed 4 cycles of treatment on 03/24/2021. The case was already sedated discussed with the surgical team and there was progression in her disease on a neoadjuvant chemotherapy with metastases. Obviously she was not a candidate for surgical intervention and the patient was discharged home for restaging and thus they results of the above-mentioned PET/CT. During this current admission, the patient presented emergency with ongoing abdominal pain, tachycardia and the pain was essentially on the right side of the abdomen involving the liver area. She was dizzy and weak and she was feeling that she was going to pass out. In emergency, limited workup was done and the patient was admitted to the intensive care unit. I was informed of this admission once the patient arrived to the ICU. She did not have good IV access. We were able to access Mediport. Her blood work showed a white cell count of 20 with 26% bandemia. Her initial blood gases showed a pH of 7.27 with a pCO2 of 27 and pO2 of 80 and this was done on 15 L high flow oxygen. At that time, the patient was noted to be acidotic and the patient and I metabolic acidosis. Further workup was done. Her serum bicarb was 16. Lactic acid level was 7.2. LFTs were abnormal. UA was abnormal. COVID-19 testing was negative. Note that during her earlier admission, the patient had an Enterococcus faecalis in her urine. At that point, we aggressively started resuscitating this patient with IV fluids. She was given a total of 4 L 4 L of IV fluids. She was also started on pressors and norepinephrine infusion was gradually titrated up throughout the night and was maximized at 50 mcg/minute and vasopressin was also added to support her hypotension. At the same time, the patient was given a combination of Zosyn and vancomycin as broad-spectrum antibiotic coverage. In fact I wanted to scan her abdomen. The patient was too unstable to be transferred down for any CAT scan images of the abdomen. In the emergency, CTA of the chest was done which showed no evidence of any pulmonary embolism and there was mild pulmonary vascular congestion as noted on the chest x-ray. During the course of her ICU stay, the patient was intubated and placed on a mechanical ventilator. Her ventilator settings were a rate of 32 with a tidal volume of 500 part of 100% with a PEEP of 5. Subsequent blood gases showed ongoing difficulties with metabolic acidosis with a pH of 7.2 and a pCO2 of 28 and pO2 224. Post intubation chest x-ray showed pulmonary vascular congestion. ET tube was in a good location. No pneumothorax. No significant consolidation. The patient continued to be tachycardic with a heart rate in the 150s to 160s, hemodynamically unstable, oliguric and altered mentation. She was given some degree of sedation postintubation she was started on propofol at the lower dose to control her sedation. At one point she was on propofol at 30 mg/kg/m. Amylase and lipase were negative. LFTs are abnormal. During the course of her treatment, we had a lengthy discussion with the family and we change her CODE STATUS is DNR/DNI. Family was made aware that the patient's disease was essentially metastatic and currently she was septic and she was not responding to conventional treatments of fluids and antibiotic resuscitation. Subsequent lactic acid level came back at 10.7. The patient became progressively more hypotensive, systolic blood pressures up in his 60s. Note that the abdominal exam was essentially benign and the patient's abdomen was soft. She did have bowel sounds. No GI bleeding. U ltimately she on 4:15 AM this morning. Family was at the bedside Review of Systems ROS unobtainable: due to mental status Past Medical History Past Medical History: Cancer, Eye Disorder, GERD/Reflux, Neurologic Disorder, Thyroid Disorder Additional Past Medical History / Comment(s): Migraines; leaky mitral valve and tachycardia; CHIARI MALFORMATION; palpitations; ulcer in ; hx hiatal hernia; daily headaches; tinnitus timo ears; acute angular glaucoma-corrected with surgery; 10/30/20 right breast and axillary lymph node biopsy with invasive ductal carcinoma WITH CHEMO History of Any Multi-Drug Resistant Organisms: None Reported Past Surgical History: Breast Surgery, Section, Cholecystectomy, Hysterectomy, Orthopedic Surgery Additional Past Surgical History / Comment(s): left knee arthroscopy; rt breast lumpectomy benign; DECOMPRESSION SURGERY SECONDARY TO CHIARI MALFORMATION; C/S x3; vaginal cyst removed; timo eye surgery for glaucoma; 10/30/20 right breast and axillary lymph node biopsy with invasive ductal carcinoma; PORT A CATH Past Anesthesia/Blood Transfusion Reactions: Family History of Problems w/ Anesthesia Additional Past Anesthesia/Blood Transfusion Reaction / Comment(s): Mother woke during surgery. Past Psychological History: Anxiety, Depression Smoking Status: Former smoker Past Alcohol Use History: Occasional Past Drug Use History: Marijuana - Past Family History Mother Family Medical History: Cancer, Deep Vein Thrombosis (DVT), Pulmonary Embolus Additional Family Medical History / Comment(s): Breast Cancer left breast intraductal carcinoma in 1998 Medications and Allergies Home Medications Medication Instructions Recorded Confirmed Type DULoxetine HCL [Cymbalta] 120 mg PO HS 03/30/20 04/17/21 History Levothyroxine Sodium 25 mcg PO DAILY 03/30/20 04/17/21 History traZODone HCL 150 mg PO HS 03/30/20 04/17/21 History Cyclobenzaprine [Flexeril] 5 mg PO HS PRN 07/01/20 04/17/21 History ARIPiprazole [Abilify] 2 mg PO HS 09/16/20 04/17/21 History Propranolol [Inderal] 40 mg PO BID 09/16/20 04/17/21 History Ibuprofen 600 mg PO BID #60 tab 04/12/21 04/17/21 Rx Levofloxacin [Levaquin] 500 mg PO HS #5 tab 04/13/21 04/17/21 Rx Pantoprazole [Protonix] 40 mg PO AC-BRKFST #30 tab 04/13/21 04/17/21 Rx HYDROcodone/APAP 10-325MG [Smoaks 1 tab PO Q6H PRN 04/17/21 04/17/21 History 10-325] Ondansetron HCl [Zofran] 4 mg PO Q6H PRN 04/17/21 04/17/21 History Allergies Allergy/AdvReac Type Severity Reaction Status Date / Time Cephalosporins Allergy Rash/Hives/throat Verified 04/17/21 09:30 swelling topiramate [From Topamax] AdvReac Severe mood swings Verified 04/17/21 09:30 Physical Exam Vitals: Vital Signs Temp Pulse Resp BP Pulse Ox 04/18/21 03:30 144 H 32 H 04/18/21 03:00 151 H 32 H 75/47 04/18/21 02:30 154 H 32 H 04/18/21 02:00 156 H 32 H 04/18/21 01:30 154 H 32 H 100/60 04/18/21 01:00 154 H 32 H 107/64 04/18/21 00:30 98.8 F 152 H 32 H 101/78 97 04/18/21 00:00 149 H 32 H 135/86 98 04/17/21 23:30 149 H 37 H 93/28 92 L 04/17/21 23:00 151 H 39 H 80/32 92 L 04/17/21 22:30 146 H 45 H 109/99 91 L 04/17/21 22:00 137 H 34 H 102/82 92 L 04/17/21 21:30 134 H 32 H 110/81 92 L 04/17/21 21:15 133 H 28 H 88/58 93 L 04/17/21 21:00 131 H 25 H 80/56 92 L 04/17/21 20:30 97.7 F 133 H 24 89/48 93 L 04/17/21 20:00 126 H 22 77/27 93 L 04/17/21 19:00 121 H 21 81/57 94 L 04/17/21 18:30 123 H 17 72/56 96 04/17/21 18:00 128 H 18 93/55 96 04/17/21 17:30 126 H 16 80/57 95 04/17/21 17:00 122 H 19 79/49 97 04/17/21 16:30 125 H 20 73/45 96 04/17/21 16:20 125 H 22 73/45 96 04/17/21 16:00 98.4 F 126 H 13 150/128 97 04/17/21 15:50 123 H 34 H 144/134 99 04/17/21 14:10 98.1 F 149 H 18 103/54 99 04/17/21 14:00 149 H 18 99 04/17/21 13:00 147 H 18 103/54 94 L 04/17/21 12:00 141 H 18 104/53 95 04/17/21 11:00 129 H 18 113/72 96 04/17/21 10:00 125 H 18 96 04/17/21 09:00 120 H 18 111/69 96 Intake and Output 04/17/21 04/18/21 04/18/21 22:59 06:59 14:59 Intake Total 2723.132 4905.505 Output Total 155 410 Balance 2568.132 4495.505 Intake: IV 2667 4184 Fluid Bolus 1000 3000 Piperacillin-Tazobactam 3 100 .375 gm In Sodium Chloride 0.9% 100 ml @ 25 mls/hr IVPB Q8HR [facility] Rx# :[id number] Sodium Chloride 0.9% 1, 1500 750 000 ml @ 150 mls/hr IV . Q6H40M [facility] Rx#:[id number] Vancomycin 1,750 mg In 167 334 Sodium Chloride 0.9% 500 ml 500 ml @ 167 mls/hr IVPB Q12H [facility] Rx#: [id number] Intake, IV Titration 56.132 721.505 Amount Norepinephrine 4 mg In 56.132 705.336 Sodium Chloride 0.9% 250 ml @ 0.05 MCG/KG/MIN 17. 541 mls/hr IV .[id number] [facility] Rx#:[id number] propofoL 1,000 mg In 16.169 Empty Bag 1 bag @ Titrate IV .Q0M [facility] Rx#: [id number] Output: Gastric Drainage 100 Urine 155 310 ABP, PAP, CO, CI - Last 8 Hours Arterial Blood Pressure 63/47 Arterial Blood Pressure 77/58 Arterial Blood Pressure 89/64 Arterial Blood Pressure 117/75 Arterial Blood Pressure 92/62 Arterial Blood Pressure 120/75 Arterial Blood Pressure 149/97 The patient was ill-looking and the patient was essentially examined prior to her intubation process. She had significant third spacing and edema in all 4 extremities which in lower extremities. She was tachycardic, dusky, cold, clammy, uncomfortable, diaphoretic, not answering questions appropriately other than some simple commands. She was becoming progressively more obtunded during the course of her ICU admission. HEENT: Head is atraumatic, normocephalic. Pupils equal, round. Sclerae is anicteric. Scalp alopecia. NECK: Supple. No JVD. No lymphadenopathy. No thyromegaly. LUNGS: Slightly diminished, no wheezes. No intercostal retractions. HEART: Regular rate and rhythm and the patient was quite tachycardic.. No murmur. Mediport to the right upper anterior chest wall. ABDOMEN: Soft. Bowel sounds are present. No masses. No tenderness. EXTREMITIES: increased pedal edema. No calf tenderness. Diminished pulses in lower extremities bilaterally NEUROLOGICAL: Nonfocal neurologic exam Results - Laboratory Findings CBC and BMP: 04/17/21 20:43 04/17/21 07:35 ABG WBC 20.0 k/uL (3.8-10.6) H 04/17/21 20:43 RBC 4.17 m/uL (3.80-5.40) 04/17/21 20:43 Hgb 11.7 gm/dL (11.4-16.0) 04/17/21 20:43 Hct 39.9 % (34.0-46.0) 04/17/21 20:43 MCV 95.5 fL (80.0-100.0) 04/17/21 20:43 MCH 28.1 pg (25.0-35.0) 04/17/21 20:43 MCHC 29.4 g/dL (31.0-37.0) L 04/17/21 20:43 RDW 17.4 % (11.5-15.5) H 04/17/21 20:43 Plt Count 164 k/uL (150-450) D 04/17/21 20:43 MPV 11.0 04/17/21 20:43 Neutrophils % (Manual) 56 % 04/17/21 20:43 Band Neuts % (Manual) 26 % 04/17/21 20:43 Lymphocytes % (Manual) 7 % 04/17/21 20:43 Monocytes % (Manual) 1 % 04/17/21 20:43 Eosinophils % (Manual) 10 % 04/17/21 20:43 Metamyelocytes % 1 % 04/17/21 20:43 Myelocytes % 1 % 04/17/21 20:43 Neutrophils # (Manual) 16.40 k/uL (1.3-7.7) H 04/17/21 20:43 Lymphocytes # (Manual) 1.40 k/uL (1.0-4.8) 04/17/21 20:43 Monocytes # (Manual) 0.20 k/uL (0-1.0) 04/17/21 20:43 Eosinophils # (Manual) 2.00 k/uL (0-0.7) H 04/17/21 20:43 Metamyelocytes # (Man) 0.20 k/uL (0) H 04/17/21 20:43 Myelocytes # (Manual) 0.20 k/uL (0) H 04/17/21 20:43 Nucleated RBCs 3 /100 WBC (0-0) H 04/17/21 20:43 Manual Slide Review Performed 04/17/21 20:43 Large Platelets Present 04/17/21 20:43 Polychromasia Present 04/17/21 20:43 Hypochromasia Marked 04/17/21 20:43 Poikilocytosis Slight 04/17/21 20:43 Anisocytosis Slight 04/17/21 20:43 Sample Site radha 04/18/21 00:46 ABG pH 7.20 (7.35-7.45) L 04/18/21 00:46 ABG pCO2 29 mmHg (35-45) L 04/18/21 00:46 ABG pO2 124 mmHg (83-108) H 04/18/21 00:46 ABG HCO3 11 mmol/L (21-25) L 04/18/21 00:46 ABG Total CO2 12 mmol/L (19-24) L 04/18/21 00:46 ABG O2 Saturation 98.0 % (94-97) H 04/18/21 00:46 ABG Base Excess -16.8 mmol/L 04/18/21 00:46 Melchor Test no 04/18/21 00:46 FiO2 100 % 04/18/21 00:46 Sodium 138 mmol/L (137-145) 04/17/21 07:35 Potassium 3.5 mmol/L (3.5-5.1) 04/17/21 07:35 Chloride 103 mmol/L (98-107) 04/17/21 07:35 Carbon Dioxide 16 mmol/L (22-30) L 04/17/21 07:35 Anion Gap 19 mmol/L 04/17/21 07:35 BUN 12 mg/dL (7-17) 04/17/21 07:35 Creatinine 0.72 mg/dL (0.52-1.04) 04/17/21 07:35 Est GFR (CKD-EPI)AfAm >90 (>60 ml/min/1.73 sqM) 04/17/21 07:35 Est GFR (CKD-EPI)NonAf >90 (>60 ml/min/1.73 sqM) 04/17/21 07:35 Glucose 69 mg/dL (74-99) L 04/17/21 07:35 POC Glucose (mg/dL) 122 mg/dL (75-99) H 04/18/21 01:26 POC Glu Cage Unloader ID Xi Becerril 04/18/21 01:26 Lactic Ac Sepsis Rflx Y 04/18/21 01:42 Plasma Lactic Acid Gm 10.7 mmol/L (0.7-2.0) H* 04/18/21 00:50 Calcium 8.4 mg/dL (8.4-10.2) 04/17/21 07:35 Phosphorus 2.9 mg/dL (2.5-4.5) 04/17/21 07:35 Magnesium 1.4 mg/dL (1.6-2.3) L 04/17/21 07:35 Total Bilirubin 2.4 mg/dL (0.2-1.3) H 04/17/21 07:35 AST 290 U/L (14-36) H 04/17/21 07:35 ALT 58 U/L (4-34) H 04/17/21 07:35 Alkaline Phosphatase 969 U/L (38-126) H 04/17/21 07:35 Ammonia 66 umol/L (<30) H 04/17/21 07:35 Creatine Kinase 119 U/L (30-135) 04/17/21 07:35 Total Protein 5.1 g/dL (6.3-8.2) L 04/17/21 07:35 Albumin 2.7 g/dL (3.5-5.0) L 04/17/21 07:35 Amylase <30 U/L (30-110) L 04/17/21 07:35 Lipase <10 U/L (23-300) L 04/17/21 07:35 Urine Color Dark Brown 04/17/21 19:09 Urine Appearance Slightly Cloudy (Clear) H 04/17/21 19:09 Urine RBC >182 /hpf (0-5) H 04/17/21 19:09 Urine WBC 43 /hpf (0-5) H 04/17/21 19:09 Urine WBC Clumps Occasional /hpf (None) H 04/17/21 19:09 Ur Squamous Epith Cells 2 /hpf (0-4) 04/17/21 19:09 Amorphous Sediment Rare /hpf (None) H 04/17/21 19:09 Urine Bacteria Rare /hpf (None) H 04/17/21 19:09 Hyaline Casts 52 /lpf (0-2) H 04/17/21 19:09 Urine Mucus Occasional /hpf (None) H 04/17/21 19:09 Serum Alcohol <10 mg/dL 04/17/21 07:35 Coronavirus (PCR) Not Detected (Not Detectd) 04/17/21 09:07 Abnormal lab findings: Abnormal Labs 04/17/21 04/17/21 04/17/21 07:35 07:35 07:35 WBC MCHC RDW Neutrophils # (Manual) Eosinophils # (Manual) Metamyelocytes # (Man) Myelocytes # (Manual) Nucleated RBCs ABG pH ABG pCO2 ABG pO2 ABG HCO3 ABG Total CO2 ABG O2 Saturation Carbon Dioxide 16 L Glucose 69 L POC Glucose (mg/dL) Plasma Lactic Acid Gm Magnesium 1.4 L Total Bilirubin 2.4 H AST 290 H ALT 58 H Alkaline Phosphatase 969 H Ammonia 66 H Total Protein 5.1 L Albumin 2.7 L Amylase <30 L Lipase <10 L Urine Appearance Urine RBC Urine WBC Urine WBC Clumps Amorphous Sediment Urine Bacteria Hyaline Casts Urine Mucus 04/17/21 04/17/21 04/17/21 15:43 16:06 19:09 WBC MCHC RDW Neutrophils # (Manual) Eosinophils # (Manual) Metamyelocytes # (Man) Myelocytes # (Manual) Nucleated RBCs ABG pH ABG pCO2 ABG pO2 ABG HCO3 ABG Total CO2 ABG O2 Saturation Carbon Dioxide Glucose POC Glucose (mg/dL) 57 L 105 H Plasma Lactic Acid Gm Magnesium Total Bilirubin AST ALT Alkaline Phosphatase Ammonia Total Protein Albumin Amylase Lipase Urine Appearance Slightly Cloudy H Urine RBC >182 H Urine WBC 43 H Urine WBC Clumps Occasional H Amorphous Sediment Rare H Urine Bacteria Rare H Hyaline Casts 52 H Urine Mucus Occasional H 04/17/21 04/17/21 04/17/21 20:42 20:43 20:43 WBC 20.0 H MCHC 29.4 L RDW 17.4 H Neutrophils # (Manual) 16.40 H Eosinophils # (Manual) 2.00 H Metamyelocytes # (Man) 0.20 H Myelocytes # (Manual) 0.20 H Nucleated RBCs 3 H ABG pH ABG pCO2 ABG pO2 ABG HCO3 ABG Total CO2 ABG O2 Saturation Carbon Dioxide Glucose POC Glucose (mg/dL) 73 L Plasma Lactic Acid Gm 7.2 H* Magnesium Total Bilirubin AST ALT Alkaline Phosphatase Ammonia Total Protein Albumin Amylase Lipase Urine Appearance Urine RBC Urine WBC Urine WBC Clumps Amorphous Sediment Urine Bacteria Hyaline Casts Urine Mucus 04/17/21 04/18/21 04/18/21 23:00 00:46 00:50 WBC MCHC RDW Neutrophils # (Manual) Eosinophils # (Manual) Metamyelocytes # (Man) Myelocytes # (Manual) Nucleated RBCs ABG pH 7.27 L 7.20 L ABG pCO2 27 L 29 L ABG pO2 80 L 124 H ABG HCO3 12 L 11 L ABG Total CO2 13 L 12 L ABG O2 Saturation 98.0 H Carbon Dioxide Glucose POC Glucose (mg/dL) Plasma Lactic Acid Gm 10.7 H* Magnesium Total Bilirubin AST ALT Alkaline Phosphatase Ammonia Total Protein Albumin Amylase Lipase Urine Appearance Urine RBC Urine WBC Urine WBC Clumps Amorphous Sediment Urine Bacteria Hyaline Casts Urine Mucus 04/18/21 04/18/21 00:58 01:26 WBC MCHC RDW Neutrophils # (Manual) Eosinophils # (Manual) Metamyelocytes # (Man) Myelocytes # (Manual) Nucleated RBCs ABG pH ABG pCO2 ABG pO2 ABG HCO3 ABG Total CO2 ABG O2 Saturation Carbon Dioxide Glucose POC Glucose (mg/dL) 51 L 122 H Plasma Lactic Acid Gm Magnesium Total Bilirubin AST ALT Alkaline Phosphatase Ammonia Total Protein Albumin Amylase Lipase Urine Appearance Urine RBC Urine WBC Urine WBC Clumps Amorphous Sediment Urine Bacteria Hyaline Casts Urine Mucus - Diagnostic Findings Chest x-ray: image reviewed CT scan - chest: image reviewed Assessment and Plan Plan: 1 septic shock with multisystem organ failure, hemodynamic collapse, nonresponsive to conventional resuscitation efforts with fluids and antibiotics and pressors. The patient is status post systemic chemotherapy. She presented to us with leukocytosis, hypotension, altered mentation, hemodynamic instability, lactic acidosis, and shock state. As mentioned, the patient has extensive malignancy with metastatic rest cancer. Please refer to my earlier dictations regarding details of her breast cancer and interval progression with findings on the most recent PET/CT that shows diffuse cancer involving bilateral breasts, skeletal system, liver, thoracic and abdominal lymphadenopathy. 2 Chiari malformation 3 recent hospitalization for an Enterococcus faecalis septicemia/UTI 4 chronic anxiety/depression 5 hypothyroidism 6 chronic anemia Plan Resuscitation efforts failed. The patient . During the process, family was informed. The patient was switched a DNR/DNI CODE STATUS. She did get intubated one point to help her with the resuscitation process. Nevertheless, she had significant hemodynamic collapse with signs of multisystem organ failure and she became progressively hypotensive and she this morning at around 4:15 AM. Family was made aware. Primary care physician will be informed. Oncology will be informed. Time with Patient: Greater than 30
[2021-04-18] MEDS ORDERED: CHLORHEXIDINE GLUCONATE 15 ML CUP MUCOUS MEM SCH (09:00)
--- NOTE | 2021-04-18 09:08 | P.HPIM ---
History of Present Illness H&P Date: 04/17/21 Chief Complaint: abdominal pain 45-year-old female past medical history of malignant neoplasm of the right breast with right axillary lymphadenopathy and metastatic disease to the liver hypothyroidism, generalized anxiety disorder, migraine headache, recurrent depression, chronic reflux esophagitis, Chiari malformation, spondylosis of the lumbar spine, presents to the ER for evaluation today. Patient complaining of increased heart rate, anxiety and abdominal pain. Patient has right-sided abdominal pain with history of possible liver disease. Patient has known breast cancer, she has gone through 2 year for chemotherapy treatments, she is having significant abdominal pain lightheadedness dizziness weakness and feels like she is given a pass out. patient was worked up in ED; reveals patient to be tachycardic with heart rate in the 140s; EKG done reveals sinus tachycardia; CT of the chest done is negative for PE While in ED patient became more tachycardic and somewhat dyspneic with soft blood pressures and was resuscitated with IV fluids and admitted to ICU for further evaluation Review of Systems ROS unobtainable: due to mental status Past Medical History Past Medical History: Cancer, Eye Disorder, GERD/Reflux, Neurologic Disorder, Thyroid Disorder Additional Past Medical History / Comment(s): Migraines; leaky mitral valve and tachycardia; CHIARI MALFORMATION; palpitations; ulcer in ; hx hiatal hernia; daily headaches; tinnitus timo ears; acute angular glaucoma-corrected with surgery; 10/30/20 right breast and axillary lymph node biopsy with invasive ductal carcinoma WITH CHEMO History of Any Multi-Drug Resistant Organisms: None Reported Past Surgical History: Breast Surgery, Section, Cholecystectomy, Hysterectomy, Orthopedic Surgery Additional Past Surgical History / Comment(s): left knee arthroscopy; rt breast lumpectomy benign; DECOMPRESSION SURGERY SECONDARY TO CHIARI MALFORMATION; C/S x3; vaginal cyst removed; timo eye surgery for glaucoma; 10/30/20 right breast and axillary lymph node biopsy with invasive ductal carcinoma; PORT A CATH Past Anesthesia/Blood Transfusion Reactions: Family History of Problems w/ Anes thesia Additional Past Anesthesia/Blood Transfusion Reaction / Comment(s): Mother woke during surgery. Past Psychological History: Anxiety, Depression Smoking Status: Former smoker Past Alcohol Use History: Occasional Past Drug Use History: Marijuana - Past Family History Mother Family Medical History: Cancer, Deep Vein Thrombosis (DVT), Pulmonary Embolus Additional Family Medical History / Comment(s): Breast Cancer left breast intraductal carcinoma in 1998 Medications and Allergies Home Medications Medication Instructions Recorded Confirmed Type DULoxetine HCL [Cymbalta] 120 mg PO HS 03/30/20 04/17/21 History Levothyroxine Sodium 25 mcg PO DAILY 03/30/20 04/17/21 History traZODone HCL 150 mg PO HS 03/30/20 04/17/21 History Cyclobenzaprine [Flexeril] 5 mg PO HS PRN 07/01/20 04/17/21 History ARIPiprazole [Abilify] 2 mg PO HS 09/16/20 04/17/21 History Propranolol [Inderal] 40 mg PO BID 09/16/20 04/17/21 History Ibuprofen 600 mg PO BID #60 tab 04/12/21 04/17/21 Rx Levofloxacin [Levaquin] 500 mg PO HS #5 tab 04/13/21 04/17/21 Rx Pantoprazole [Protonix] 40 mg PO AC-BRKFST #30 tab 04/13/21 04/17/21 Rx HYDROcodone/APAP 10-325MG [[place] 1 tab PO Q6H PRN 04/17/21 04/17/21 History 10-325] Ondansetron HCl [Zofran] 4 mg PO Q6H PRN 04/17/21 04/17/21 History Allergies Allergy/AdvReac Type Severity Reaction Status Date / Time Cephalosporins Allergy Rash/Hives/throat Verified 04/17/21 09:30 swelling topiramate [From Topamax] AdvReac Severe mood swings Verified 04/17/21 09:30 Physical Exam Vitals: Vital Signs Temp Pulse Resp BP Pulse Ox 04/17/21 09:00 120 H 18 111/69 96 04/17/21 08:00 18 04/17/21 07:38 18 04/17/21 05:37 98.1 F 133 H 20 94/68 92 L Intake and Output 04/16/21 04/17/21 04/17/21 22:59 06:59 14:59 Other: Weight 92.079 kg - Constitutional General appearance:lethargic Eyes: Present: icteric sclerae, EOMI, PERRLA Neck: Present: normal ROM. Absent: lymphadenopathy, rigidity, thyromegaly Carotids: negative: bruit present Respiratory: bilateral rhonchi, wheezing Cardiovascular; tachycardic; regular rhythm Heart sounds: normal: S1, S2 Gastrointestinal; diffuse tenderness; no guarding or rigidity Absent: distended, organomegaly, tenderness Genitourinary Comment(s): deferred Integumentary: Present: normal turgor. Absent: jaundiced, rash, ulcer Neurologic: Present: CNII-XII intact. Absent: focal deficits Musculoskeletal: Present: gait normal, strength equal bilaterally Psychiatric: Alert, anxious Results CBC & Chem 7: 04/17/21 20:43 04/17/21 07:35 Labs: Abnormal Lab Results - Last 24 Hours (Table) 04/17/21 Range/Units 07:35 Carbon Dioxide 16 L (22-30) mmol/L Glucose 69 L (74-99) mg/dL Total Bilirubin 2.4 H (0.2-1.3) mg/dL AST 290 H (14-36) U/L ALT 58 H (4-34) U/L Alkaline Phosphatase 969 H (38-126) U/L Total Protein 5.1 L (6.3-8.2) g/dL Albumin 2.7 L (3.5-5.0) g/dL Amylase <30 L (30-110) U/L Assessment and Plan Assessment: 1. Hypotension; related to sepsis versus volume depletion - Patient has been fluid resuscitated with 2 L normal saline and is currently at normal saline at 200 mL an hour; patient remains tachycardic and blood pressure remained soft; patient has been upgraded to admission to ICU; floor waxer team on board 2. Hypoxic respiratory failure - Patient is currently placed on 15 L O2 with nonrebreather mask; plan to titrate as able; CTA chest is negative for PE, CHF or acute infiltrate; pulmonary service on board for further recommendations 3. Diffuse abdominal pain; possibly related to diffuse metastatic disease 4. Transaminitis; related to liver metastases 5. Metastatic breast cancer with axillary lymphadenopathy, metastatic disease to liver; patient has been treated by oncology on outpatient basis -- patient underwent a PET/CT on 04/16/2021 and the patient was found to have interval neoplastic progression and worsening of the disease. There was worsening of the rest breast findings. The patient was found to have new abnormal left supraclavicular hypermetabolic lymphadenopathy measuring 1.4 x 1 cm in size. Within the chest and the mediastinum, there was new hypermetabolic left axillary lymph nodes measuring 2.4 x 2.2 cm and new areas of abnormal metabolic activity in the left breast. There was worsening large area of uptake in the right breast extending to the skin surface below the nipple and persistent right axillary lymphadenopathy. Within the abdomen, there was new diffuse uptake through the liver and spleen and there was also lymphadenopathy in the retroperitoneum and abnormal hypermetabolic lymph nodes in the upper and mid abdominal mesentery anterior to SMA and abnormal left iliac chain lymph nodes in addition to new scattered abnormal metabolic foci throughout the o sseous structures findings most prominent in the pelvis. Suspected also lytic lesion at the level of S1. Liver was diffusely involved with low-density lesions and this was typical of underlying neoplastic progression Prognosis remains guarded Patient remains full code per discussion with family at bedside
--- NOTE | 2021-04-18 10:35 | P.CONS ---
History of Present Illness - Reason for Consult Consult date: 04/17/21 Breast Cancer Requesting physician: Nazario Shoemaker - Chief Complaint Shortness of breath and pain - History of Present Illness Vanessa presented with a palpable UOQ R breast mass in May 2020, had diagnostic mammogram on 10/21/2020 revealing suspicious 2.8 cm UOQ R Breast mass, 7.2 cm from nipple, US confirmed lesion plus R axillary lymphadenopathy. The patient had US-Guided Bx of both mass and R axillary LN revealing Grade II invasive ductal carcinoma ER/NV 10%/0% [id number] +1(Negative). Vanessa reported using Estrogen-based BCP X 4 years, had TSH and unilateral SO. Mother, 2 maternal aunts and 2 maternal cousins had breast ca in mid 40s. She has arnold-chiari disease, follows with Neurologist in [place] 12/15/20: Feels well, tolerating AC well (Mild nausea & fatigue), developed complete alopecia as expected. 01/12/21: Feels well, completed AC chemotherapy. 02.01.21: Presents for acute visit. Shortness of breath, pain with inspiration, tachycardia, low grade fever, RLE edema and pain. 02/24/21-patient seen today as an acute visit. She has complaints of pain in her right axilla, at the site with a lymph node was biopsied, she is also feeling some swelling next to her known right breast tumor, this is been going on for just a day or 2, no fevers, unusual drainage, her breast is not hot to the touch. She has no other symptoms to report. She is getting chemotherapy today. 03/17/21: Feels well, C/O bone aches 2nd to Taxol/Neulasta. She completed 3 cycles of DD Taxol She completed chemotherapy on 03/25/21. Since this time, per her family she hasnt felt right. Increased swelling in right arm, increased shortness of breath over the past week - worsening, pain in the area of liver. THerefore she was brought to emergency for further evaluation. I have spoken to mother, patient next to mother but difficulty in breathing unable to talk on phoine. Review of Systems All systems: negative Constitutional: Reports as per HPI Past Medical History Past Medical History: Cancer, Eye Disorder, GERD/Reflux, Neurologic Disorder, Thyroid Disorder Additional Past Medical History / Comment(s): Migraines; leaky mitral valve and tachycardia; CHIARI MALFORMATION; palpitations; ulcer in ; hx hiatal hernia; daily headaches; tinnitus timo ears; acute angular glaucoma-corrected with surgery; 10/30/20 right breast and axillary lymph node biopsy with invasive ductal carcinoma WITH CHEMO History of Any Multi-Drug Resistant Organisms: None Reported Past Surgical History: Breast Surgery, Section, Cholecystectomy, Hysterectomy, Orthopedic Surgery Additional Past Surgical History / Comment(s): left knee arthroscopy; rt breast lumpectomy benign; DECOMPRESSION SURGERY SECONDARY TO CHIARI MALFORMATION; C/S x3; vaginal cyst removed; timo eye surgery for glaucoma; 10/30/20 right breast and axillary lymph node biopsy with invasive ductal carcinoma; PORT A CATH Past Anesthesia/Blood Transfusion Reactions: Family History of Problems w/ Anesthesia Additional Past Anesthesia/Blood Transfusion Reaction / Comm: Mother woke during surgery. Past Psychological History: Anxiety, Depression Smoking Status: Former smoker Past Alcohol Use History: Occasional Past Drug Use History: Marijuana - Past Family History Mother Family Medical History: Cancer, Deep Vein Thrombosis (DVT), Pulmonary Embolus Additional Family Medical History / Comment(s): Breast Cancer left breast intraductal carcinoma in 1998 Medications and Allergies Home Medications Medication Instructions Recorded Confirmed Type DULoxetine HCL [Cymbalta] 120 mg PO HS 03/30/20 04/17/21 History Levothyroxine Sodium 25 mcg PO DAILY 03/30/20 04/17/21 History traZODone HCL 150 mg PO HS 03/30/20 04/17/21 History Cyclobenzaprine [Flexeril] 5 mg PO HS PRN 07/01/20 04/17/21 History ARIPiprazole [Abilify] 2 mg PO HS 09/16/20 04/17/21 History Propranolol [Inderal] 40 mg PO BID 09/16/20 04/17/21 History Ibuprofen 600 mg PO BID #60 tab 04/12/21 04/17/21 Rx Levofloxacin [Levaquin] 500 mg PO HS #5 tab 04/13/21 04/17/21 Rx Pantoprazole [Protonix] 40 mg PO AC-BRKFST #30 tab 04/13/21 04/17/21 Rx HYDROcodone/APAP 10-325MG [[place] 1 tab PO Q6H PRN 04/17/21 04/17/21 History 10-325] Ondansetron HCl [Zofran] 4 mg PO Q6H PRN 04/17/21 04/17/21 History Allergies Allergy/AdvReac Type Severity Reaction Status Date / Time Cephalosporins Allergy Rash/Hives/throat Verified 04/17/21 09:30 swelling topiramate [From Topamax] AdvReac Severe mood swings Verified 04/17/21 09:30 Physical Exam Vitals: Vital Signs Temp Pulse Resp BP Pulse Ox 04/17/21 09:00 120 H 18 111/69 96 04/17/21 08:00 18 04/17/21 07:38 18 04/17/21 05:37 98.1 F 133 H 20 94/68 92 L Intake and Output 04/16/21 04/17/21 04/17/21 22:59 06:59 14:59 Other: Weight 92.079 kg Telemedicine Visit - Cardiovascular Rhythm: regularly irregular - Gastrointestinal General gastrointestinal: soft Results CBC & Chem 7: 04/17/21 20:43 04/17/21 07:35 Labs: Abnormal Lab Results - Last 24 Hours (Table) 04/17/21 Range/Units 07:35 Carbon Dioxide 16 L (22-30) mmol/L Glucose 69 L (74-99) mg/dL Total Bilirubin 2.4 H (0.2-1.3) mg/dL AST 290 H (14-36) U/L ALT 58 H (4-34) U/L Alkaline Phosphatase 969 H (38-126) U/L Total Protein 5.1 L (6.3-8.2) g/dL Albumin 2.7 L (3.5-5.0) g/dL Amylase <30 L (30-110) U/L Chest x-ray: report reviewed Assessment and Plan (1) Breast cancer, right Status: Acute Priority: High Code(s): C50.911 - MALIGNANT NEOPLASM OF UNSP SITE OF RIGHT FEMALE BREAST SNOMED Code(s): 137768730 (2) UTI (urinary tract infection) Status: Acute Code(s): N39.0 - URINARY TRACT INFECTION, SITE NOT SPECIFIED SNOMED Code(s): 27555482 Plan: Patient and mother agreed to discussion over phone as consult came on list after I had rounded. I have thoroughly reviewed chart. Her LFTs and BIli are increased dramatically from prior. She is having DERECK and awaiting bed in ICU. CTA to be Performed Imaging of Liver to be performed ICU care Infectious work-up COags and CBC
--- NOTE | 2021-04-19 07:43 | ECHOF ---
Referral Reason:tachy, Assess LV Fx and RV size MEASUREMENTS -------- HEIGHT: 152.4 cm WEIGHT: 92.1 kg BP: RVIDd: 2.7 cm (< 3.3) IVSd: 1.1 cm (0.6 - 1.1) LVIDd: 4.2 cm (3.9 - 5.3) LVPWd: 1.4 cm (0.6 - 1.1) IVSs: 1.8 cm LVIDs: 2.2 cm LVPWs: 1.7 cm LA Diam: 3.7 cm (2.7 - 3.8) MV EXCURSION: 12.885 mm (> 18.000) MV EF SLOPE: 53 mm/s (70 - 150) EPSS: 0.2 cm RAP: 5.00 mmHg RVSP: 43.54 mmHg FINDINGS -------- Resting tachycardia (HR>100bpm). This was a technically adequate study. The left ventricular size is normal. Left ventricular wall thickness is normal. Overall left vent ricular systolic function is normal with, an EF between 55 - 60 %. The right ventricle is normal in size. The left atrial size is normal. The right atrial size is normal. The aortic valve is trileaflet, and appears structurally normal. No aortic stenosis or regurgitation. There is no evidence of aortic regurgitation. Mild mitral annular calcification present. Mild mitral regurgitation is present. Mild tricuspid regurgitation present. There is mild pulmonary hypertension. The right ventricular systolic pressure, as measured by Doppler, is 43.54mmHg. There is no pulmonic regurgitation present. The aortic root size is normal. Echo free space indicative of a pericardial fat pad. There is a small, generalized pericardial effu doyle present. CONCLUSIONS -------- 1. The left ventricular size is normal. 2. Left ventricular wall thickness is normal. 3. Overall left ventricular systolic function is normal with, an EF between 55 - 60 %. 4. The right ventricle is normal in size. 5. The left atrial size is normal. 6. The right atrial size is normal. 7. The aortic valve is trileaflet, and appears structurally normal. No aortic stenosis or regurgitati on. 8. Mild mitral annular calcification present. 9. Mild mitral regurgitation is present. 10. Mild tricuspid regurgitation present. 11. There is mild pulmonary hypertension. 12. The right ventricular systolic pressure, as measured by Doppler, is 43.54mmHg. 13. There is no pulmonic regurgitation present. 14. The aortic root size is normal. 15. Echo free space indicative of a pericardial fat pad. 16. There is a small, generalized pericardial effusion present. PARCEL POST WEIGHER: Kathy Gonzales RDCS
--- NOTE | 2021-04-22 14:02 | CDI ---
Documentation Clarification Form Mortality Review Date: 04/22/2021 01:31:37 PM From: Monica Fernandez RN, CCDS Admit Date: 04/17/2021 06:39:00 AM Patient Name: Vanessa Eddy Visit Number: [id number] Discharge Date: 04/18/2021 06:56:00 AM ATTENTION: The Clinical Documentation Specialists (CDI) and [facility] Coding Staff appreciate your assistance in clarifying documentation. Please respond to the clarification below the line at the bottom and electronically sign. The CDI & [facility] Coding staff will review the response and follow-up if needed. Please note: Queries are made part of the Legal Health Record. If you have any questions, please contact the author of this message via ITS. Dr. Ida Hodge Your patient has hypoxic respiratory failure Documented in the H&P and was placed on the mechanical ventilator. Based on this information and the findings below, is please specify the acuity of the hypoxic respiratory failure that is clinically appropriate for this patient? History/Risk Factors: Tobacco use: Former smoker Home oxygen: none Breast Cancer- invasive ductal CA with mets to liver and bone, GERD, Hypothyroid, Chemo, Chiari Malformation Clinical Indicators: 04/17 H&P: "Hypoxic respiratory failure - Patient is currently placed on 15 L O2 with nonrebreather mask; plan to titrate as able; CTA chest is negative for PE, CHF or acute infiltrate; pulmonary service on board for further recommendations. 04/18 CXR: "Pleural fluid and pulmonary congestion increased slightly compared to yesterday. This is probably congestive heart failure. There is increasing infiltrate left lower lobe." 04/17 0537 VS & Pulse oximetry: Temp 98.1, HR 133, RR 20, B/P 94/68, Spo2 92% RA 04/17 between 1200 and 1300 patient's HR up into 140's O2 needs go from room air to 100% NRB 04/18 0000 V/S: HR 149, RR 32, B/P 135/86, Spo2 98% on 100% MV 04/17 H&P: Lung/Breathing assessment: "Respiratory: bilateral rhonchi, wheezing." 04/17 2300 Pre-Intubation ABG/CBG: PH 7.27 pO2 80 pCO2 27 HCO3 12 Total CO2 13 Lactate -14.5 Treatment: Breathing TX: none ordered Continuous Pulse ox: per ICU Protocol O2/Vent: Pt admitted on Room air, increased to 1005 NRB, placed on 100% MV Please further specify acuity of Hypoxic respiratory Failure: [ x ] Acute Hypoxic Respiratory Failure (pO2 <60 mm Hg or SpO2 <91% on room air) [ ] Acute Hypercapnic Respiratory Failure (pCO2 >50 and pH <7.35) [ ] Other Diagnosis, please specify [ ] Unable to determine (Template Last Revised: September 2020) MTDD
== END 2021-04-18 06:56 | disposition expired | DRG 871 ==
LOC: EC 05:36 → 5NMEDONC 06:39 → 2SICU 11:30
PROVIDERS: ADMIT Internal Medicine; ATTEND Internal Medicine
PROC: 5A1935Z Respiratory Ventilation, Less than 24 Consecutive Hours (ICD-10-PCS; principal; 2021-04-17)
PROC: 0BH17EZ Insertion of Endotracheal Airway into Trachea, Via Natural or Artificial Opening (ICD-10-PCS; 2021-04-17)
DX: A41.9 Sepsis, unspecified organism (principal); R65.21 Severe sepsis with septic shock; J96.01 Acute respiratory failure with hypoxia; C78.7 Secondary malignant neoplasm of liver and intrahepatic bile duct; E87.2 Acidosis; N39.0 Urinary tract infection, site not specified; C79.51 Secondary malignant neoplasm of bone; C50.911 Malignant neoplasm of unspecified site of right female breast; Q07.00 Arnold-Chiari syndrome without spina bifida or hydrocephalus; R00.0 Tachycardia, unspecified; G43.909 Migraine, unspecified, not intractable, without status migrainosus; I95.9 Hypotension, unspecified; E86.0 Dehydration; M47.816 Spondylosis without myelopathy or radiculopathy, lumbar region; K21.9 Gastro-esophageal reflux disease without esophagitis; F32.9 Major depressive disorder, single episode, unspecified; R34 Anuria and oliguria; R59.0 Localized enlarged lymph nodes; H93.13 Tinnitus, bilateral; K44.9 Diaphragmatic hernia without obstruction or gangrene; E03.9 Hypothyroidism, unspecified; M54.9 Dorsalgia, unspecified; F41.9 Anxiety disorder, unspecified; Z20.822 Contact with and (suspected) exposure to COVID-19; Z66 Do not resuscitate; Z79.890 Hormone replacement therapy; Z79.899 Other long term (current) drug therapy; Z85.3 Personal history of malignant neoplasm of breast; Z87.891 Personal history of nicotine dependence; Z90.710 Acquired absence of both cervix and uterus; Z92.21 Personal history of antineoplastic chemotherapy; Z90.49 Acquired absence of other specified parts of digestive tract; Z88.1 Allergy status to other antibiotic agents
CPT/HCPCS: 36415; 71045; 71275; 78815; 80053; 80320; 81001; 82140; 82150; 82550; 82805; 83605; 83690; 83735; 84100; 85025; 87040; 87070; 87086; 87205; 87635; 93005; 93306; 94002; 94003; 99285